=== PATIENT | male | born 1940 | race Caucasian/White ===

== ENCOUNTER 2016-08-23 08:07 | Emergency (ER) | payer OTHER ==
[~2016-08-23] VITALS: Ht 160 cm; Wt 84.5 kg
[~2016-08-23 08:07] MED LIST: LPR25 PO; TMB100 PO
[2016-08-23 08:10] VITALS: Ht 160 cm; Wt 84.5 kg
--- NOTE | 2016-08-23 08:35 | DIAGNOSTIC IMAGING REPORT ---
CHEST ONE VIEW PORTABLE CLINICAL HISTORY: Fever. Sepsis. COMPARISON STUDY: Chest radiograph 10/10/2015. FINDINGS: Lung volumes are at the lower limits of normal. There is no evidence of pulmonary edema. Hazy opacity within the left lower lung is likely due to epicardial fat pad. Cardiomediastinal silhouette is normal. No consolidation is identified. The appearance of the chest is unchanged. IMPRESSION: No acute cardiopulmonary findings. Electronically signed by: Efren Lazo M.D. 08/23/2016 8:33 AM
[2016-08-23 08:41] LABS: BASO % 0.6 %; BASO ABS # 0.03 K/uL (0-0.2); COMPLETE YES; EOS % 3.9 %; HEMATOCRIT 43.8 % (42-52); IG% 0.2 %; LYMPH % 35.2 %; LYMPH ABS # 1.81 K/uL (1.2-3.4); MEAN CELL VOLUME 88.1 fL (80-100); MEAN CORPUSCULAR HEMOGLOBIN 31.6 pg (25-34); MEAN CORPUSCULAR HGB CONC 35.8 g/dl (32-36); MEAN PLATELET VOLUME 10.4 fL (7.4-10.4); MONO % 12.5 %; NEUT % 47.6 %; PLATELET COUNT 133 K/uL (130-400); RED BLOOD COUNT 4.97 M/uL (4.7-6.1); WHITE BLOOD COUNT 5.14 K/uL (4.8-10.8)
[2016-08-23 09:00] LABS: ALT/SGPT 35 U/L (12-78); BLOOD UREA NITROGEN 20 mg/dl (7-18); BUN/CREATININE RATIO 14.4 (10-20); CALCIUM 8.8 mg/dl (8.5-10.1); CARBON DIOXIDE 25 mmol/L (21-32); CHLORIDE 106 mmol/L (98-107); GLUCOSE 104 mg/dl (70-99); POTASSIUM 4.1 mmol/L (3.5-5.1); SODIUM 142 mmol/L (136-145)
[2016-08-23 09:05] LABS: ALKALINE PHOSPHATASE 58 U/L (45-117); AST/SGOT 25 U/L (15-37); CKMB/CK RATIO 1.6 (0-3.0); PROTHROMBIN TIME (PATIENT) 10.9 SECONDS (9.0-12.0)
[2016-08-23 09:36] VITALS: O2SAT 96
[2016-08-23] MEDS ORDERED: GINK40TA3 PO (09:36)
[2016-08-23] MEDS ORDERED: ASCA500 PO (09:36)
[2016-08-23] MEDS ORDERED: VITA1TAB4 PO (09:36)
[2016-08-23] MEDS ORDERED: IODICRY PO (09:36)
[2016-08-23] MEDS ORDERED: PYRI50TA77 PO (09:36)
[2016-08-23] MEDS ORDERED: MAGN250T22 PO (09:36)
[2016-08-23] MEDS ORDERED: RHOD300C PO (09:36)
[2016-08-23] MEDS ORDERED: CYAN100T PO (09:36)
[2016-08-23] MEDS ORDERED: THIA100T11 PO (09:36)
[2016-08-23] MEDS ORDERED: PRAS1TAB PO (09:36)
[2016-08-23] MEDS ORDERED: B-COTAB18 PO (09:36)
[2016-08-23] MEDS ORDERED: CHOL100010 PO (09:36)
--- NOTE | 2016-08-23 09:49 | EMERGENCY ROOM VISIT NOTE ---
History Report prepared by Meg: Judy Corona Under the Supervision of: Dr. Jhony Ogden D.O. First contact with patient: 08:22 Chief Complaint: SHORTNESS OF BREATH Stated Complaint: SOB History of Present Illness The patient is a 76 year old male who presents to the Emergency Room with complaints of constant shortness of breath that worsened last night. Nothing makes the shortness of breath better or worse. The patient states that he woke up in the middle of the night "gasping for a breath." Originally, he thought the shortness of breath was due to the heat in the house so he opened up the window. He states that it feels like "there is a blockage in his lungs." He is also experiencing sinus congestion but denies lower extremity edema or pain. The patient denies any history of COPD but states that he has experienced pneumonia and bronchitis in the past. The patient adds that he was diagnosed with sleep apnea and tried wearing the mask at night, but he states that he couldn't get used to it so he has stopped wearing it. The patient also states that he has a history of atrial fibrillation. Source of History: patient Onset: last night Position: chest Quality: other (shortness of breath) Timing: constant, worsening Modifying Factors (Worsening): other (none) Modifying Factors (Relieving): other (none) Note: sinus congestion, no lower extremity edema or pain Review of Systems See HPI for pertinent positives & negatives. A total of 10 systems reviewed and were otherwise negative. Past Medical & Surgical Medical Problems: (1) Benign paroxysmal positional vertigo (2) Bronchitis Nos (3) Chronic Sinusitis Nos (4) Endocrine Disorder Nos (5) Hyperlipidemia Nec/Nos (6) Hypertension Nos (7) Lipoprotein Deficiencies (8) Rapid atrial fibrillation (9) Tachycardia Nos (10) Thyroid disorder (11) Unspecified Sleep Apnea Family History FHx: heart disease Social History Smoking Status: Never Smoker Alcohol Use: none Drug Use: none Marital Status: single Housing Status: lives with significant other Occupation Status: retired Current/Historical Medications Scheduled Apixaban (Eliquis), 5 MG PO BID Ascorbic Acid (Vitamin C), 1 TAB PO BID B-Complex Vitamins (Vitamin B Complex), 1 TAB PO BID Cholecalciferol (Vitamin D), 1 TAB PO BID Cyanocobalamin (Vitamin B-12), 1 TAB PO BID Flecainide Acetate (Flecainide Acetate), 50 MG PO Q12 Ginkgo Biloba (Ginkoba), 1 TAB PO BID Iodine (Bulk) (Iodine Resublimed), 10 MCG PO BID Magnesium Oxide (Magnesium), 1 TAB PO BID Metoprolol Tartrate (Lopressor) (Lopressor), 12.5 MG PO DAILY Prasterone (Dhea) (Dhea), 5 MG PO TID Pyridoxine Hcl (Vitamin B 6), 1 TAB PO BID Rhodiola Rosea (Rhodiola), 1 TAB PO BID Thiamine Hcl (Vitamin B-1), 1 TAB PO BID Vitamin E (Vitamin E), 1 TAB PO BID Allergies Coded Allergies: Theophylline (Verified Adverse Reaction, Intermediate, HIGH BP,TACHYCARDIA , 05/26/16) Physical Exam Vital Signs Date Time Temp Pulse Resp B/P Pulse Ox O2 Delivery O2 Flow Rate FiO2 08/23/16 09:36 96 Room Air 08/23/16 08:36 57 08/23/16 08:10 36.4 59 20 153/97 95 Room Air Physical Exam CONSTITUTIONAL/VITAL SIGNS: Reviewed / noted above. GENERAL: Non-toxic in appearance. INTEGUMENTARY: Warm, dry, and [place]. HEAD: Normocephalic. EYES: without scleral icterus or trauma. ENT/OROPHARYNX: clear and moist. LYMPHADENOPATHY/NECK: Is supple without lymphadenopathy or meningismus. RESPIRATORY: Lungs clear and equal. CARDIOVASCULAR: Regular rate and rhythm. GI/ABDOMEN: Soft and nontender. No organomegaly or pulsatile mass. No rebound or guarding. Normal bowel sounds. EXTREMITIES: Warm and well perfused. BACK: No CVA tenderness. NEUROLOGICAL: Intact without focal deficits. PSYCHIATRIC: normal affect. MUSCULOSKELETAL: Normally developed with good muscle tone. Medical Decision & Procedures ER Provider Diagnostic Interpretation: X ray results and stated below per my interpretation and radiology interpretation. CHEST ONE VIEW PORTABLE CLINICAL HISTORY: Fever. Sepsis. COMPARISON STUDY: Chest radiograph 10/10/2015. FINDINGS: Lung volumes are at the lower limits of normal. There is no evidence of pulmonary edema. Hazy opacity within the left lower lung is likely due to epicardial fat pad. Cardiomediastinal silhouette is normal. No consolidation is identified. The appearance of the chest is unchanged. IMPRESSION: No acute cardiopulmonary findings. Electronically signed by: Efren Lazo M.D. 08/23/2016 8:33 AM Laboratory Results 08/23/16 08:28 Red Blood Count 4.97, Mean Corpuscular Volume 88.1, Mean Corpuscular Hemoglobin 31.6, Mean Corpuscular Hemoglobin Concent 35.8, Mean Platelet Volume 10.4, Neutrophils (%) (Auto) 47.6, Lymphocytes (%) (Auto) 35.2, Monocytes (%) (Auto) 12.5, Eosinophils (%) (Auto) 3.9, Basophils (%) (Auto) 0.6, Neutrophils # (Auto ) 2.45, Lymphocytes # (Auto) 1.81, Monocytes # (Auto) 0.64, Eosinophils # (Auto ) 0.20, Basophils # (Auto) 0.03 08/23/16 08:28 Test 08/23/16 08:28 White Blood Count 5.14 K/uL (4.8-10.8) Red Blood Count 4.97 M/uL (4.7-6.1) Hemoglobin 15.7 g/dL (14.0-18.0) Hematocrit 43.8 % (42-52) Mean Corpuscular Volume 88.1 fL (80-100) Mean Corpuscular Hemoglobin 31.6 pg (25-34) Mean Corpuscular Hemoglobin Concent 35.8 g/dl (32-36) Platelet Count 133 K/uL (130-400) Mean Platelet Volume 10.4 fL (7.4-10.4) Neutrophils (%) (Auto) 47.6 % Lymphocytes (%) (Auto) 35.2 % Monocytes (%) (Auto) 12.5 % Eosinophils (%) (Auto) 3.9 % Basophils (%) (Auto) 0.6 % Neutrophils # (Auto) 2.45 K/uL (1.4-6.5) Lymphocytes # (Auto) 1.81 K/uL (1.2-3.4) Monocytes # (Auto) 0.64 K/uL (0.11-0.59) Eosinophils # (Auto) 0.20 K/uL (0-0.5) Basophils # (Auto) 0.03 K/uL (0-0.2) RDW Standard Deviation 45.4 fL (36.4-46.3) RDW Coefficient of Variation 14.1 % (11.5-14.5) Immature Granulocyte % (Auto) 0.2 % Immature Granulocyte # (Auto) 0.01 K/uL (0.00-0.02) Prothrombin Time 10.9 SECONDS (9.0-12.0) Prothromb Time International Ratio 1.0 (0.9-1.1) Activated Partial Thromboplast Time 26.9 SECONDS (21.0-31.0) Partial Thromboplastin Ratio 1.0 D-Dimer 460 ug/L FEU (0-500) Anion Gap 11.0 mmol/L (3-11) Est Creatinine Clear Calc Drug Dose 44.5 ml/min Estimated GFR () 57.0 Estimated GFR (Non- 49.1 BUN/Creatinine Ratio 14.4 (10-20) Calcium Level 8.8 mg/dl (8.5-10.1) Total Bilirubin 0.5 mg/dl (0.2-1) Direct Bilirubin 0.1 mg/dl (0-0.2) Aspartate Amino Transf (AST/SGOT) 25 U/L (15-37) Alanine Aminotransferase (ALT/SGPT) 35 U/L (12-78) Alkaline Phosphatase 58 U/L (45-117) Total Creatine Kinase 100 U/L (39-308) Creatine Kinase MB 1.6 ng/ml (0.5-3.6) Creatine Kinase MB Ratio 1.6 (0-3.0) Troponin I < 0.015 ng/ml (0-0.045) Total Protein 7.0 gm/dl (6.4-8.2) Albumin 3.6 gm/dl (3.4-5.0) Lipase 324 U/L (73-393) Laboratory results as stated above per my review. ECG Indication: SOB/dyspnea Rate (beats per minute): 56 Rhythm: sinus bradycardia Findings: RBBB, other (left anterior fasicular block ) Comparison ECG Date: 05/26/2016 Change: no significant change ED Course 0903: Previous medical records were reviewed. The patient was evaluated in room B6. A complete history and physical examination was performed. 0949: On reevaluation, the patient is doing well. I discussed the results and findings with the patient. He verbalized agreement of the treatment plan. He was discharged home. Medical Decision The differential was considered includes acute myocardial infarction, acute coronary syndrome, myocarditis, pericarditis, pericardial effusions /tamponad, esophageal perforation, pulmonary embolism, pneumonia, pneumothorax, cardiomyopathy, congestive heart, anemia , COPD/asthma exacerbation. This is a 76-year-old male who presents to the ED with a chief complaint of shortness of breath. The patient states that he awoke in the middle night feeling short of breath. He states that he has had similar symptoms previously. The patient denies any other significant symptoms. He has not had any recent illness, fevers or chills. No chest pains. No swelling in his legs or other DVT risk factors. His vital signs are normal. His physical exam was normal as well. His lungs were clear. Chest x-ray did not show any acute disease. A CBC was normal. A d-dimer was negative. Troponin is negative. Complete metabolic panel was normal. EKG shows a sinus rhythm with a right bundle-branch block. No cerumen change from previous EKG. The patient was told the results of the test. The cause of the patient's symptoms are unclear at this time. I do not suspect cardiac or pulmonary etiology. There is no evidence of pneumonia or ME. He has no reactive airway disease symptoms on clinical exam. He is not anemic. He was felt to be stable for discharge and outpatient follow-up. Impression Primary Impression: Dyspnea Scribe Attestation The scribe's documentation has been prepared under my direction and personally reviewed by me in its entirety. I confirm that the note above accurately reflects all work, treatment, procedures, and medical decision making performed by me. Departure Information Dispostion Home / Self-Care Referrals RV. Nova MD (PCP) Forms HOME CARE DOCUMENTATION FORM, IMPORTANT VISIT INFORMATION Patient Instructions A Signature Page, My [facility] Additional Instructions The cause of your symptoms are unclear. Your chest x-ray did not reveal pneumonia. Your cardiac tests were normal. You are not anemic. Follow-up with your doctor for further care and evaluation in 1-2 days. Return to the emergency department for worsening or new symptoms or any concerns. You have been examined and treated today on an emergency basis only. This is not a substitute for, or an effort to provide, complete comprehensive medical care. It is impossible to recognize and treat all injuries or illnesses in a single emergency department visit. It is therefore important that you follow up closely with your doctor. Call as soon as possible for an appointment.
[2016-08-23 10:30] VITALS: BP 153/97; PULSE 57; TEMP 36.4; O2SAT 96
[2017-05-23] MEDS ORDERED: AZIT-57 PO (17:16)
[2017-05-30] MEDS ORDERED: CHOL100027 PO (05:06)
[2017-05-30] MEDS ORDERED: ASCA500 PO (05:06)
[2017-05-30] MEDS ORDERED: FLUT0.15 NAE (05:06)
[2017-05-30] MEDS ORDERED: COEN400C3 PO (05:09)
[2017-05-30] MEDS ORDERED: OMEG10007 PO (05:09)
[2017-05-30] MEDS ORDERED: APIX1TAB3 PO (06:40)
[2017-05-30] MEDS ORDERED: METO25TA56 PO (09:30)
== END 2016-08-23 10:30 | disposition home or self-care (01) ==
LOC: C.EDB 08:08
DX: R06.00 Dyspnea, unspecified (principal); G47.30 Sleep apnea, unspecified; E78.5 Hyperlipidemia, unspecified; I10 Essential (primary) hypertension; Z79.01 Long term (current) use of anticoagulants; I48.91 Unspecified atrial fibrillation; Z79.899 Other long term (current) drug therapy

== ENCOUNTER → 2016-10-13 | Outpatient (CLI) | payer OTHER ==
[~2016-10-13] MED LIST changes: +APIX1TAB3 PO; +ASCA500 PO; +B-CO1CAP17 PO; +B-COTAB18 PO; +BENZ1CAP90 PO; +CHOL100010 PO; +CHOL100027 PO; +COEN400C3 PO; +CORT25TA; +CORT25TA PO; +CYAN100T PO; +DOXY-300 OR; +FAMO20TA9 PO; +FLUT0.15 NAE; +GINK40TA3 PO; +IODICRY PO; +LISI-725 PO; -LPR25 PO; +LPT20 PO; +LYSI500C PO; +MAGN250T22 PO; +METO25TA56 PO; +OMEG10007 PO; +PRAS1TAB PO; +PRED20TA PO; +PYRI50TA77 PO; +RHOD300C PO; +TAUR500C PO; +THIA100T11 PO; +VITA1TAB4 PO; +VNTHFA/IN INH; +ZTHM250 PO
--- NOTE | 2016-10-19 08:49 | CODING QUERY MEDICAL NECESSITY ---
SUPPORTING DIAGNOSIS NEEDED A supporting diagnosis is required for the test/procedure performed on this patient in order for us to be reimbursed by the patient's insurance. Please provide a supporting diagnosis for the following test/procedure listed below next to the test name along with your signature. *If there is no additional diagnosis for this patient that would support the following test/procedure please document that below next to the test/procedure. Test(s)/Procedure(s) that require a supporting diagnosis: DOS 10/13 * Folic Acid DIAGNOSIS: * Vitamin B12 DIAGNOSIS: Provider Signature: Date: Thank you Kellie Crews Health Information Management Once completed, please kindly fax back to [phone] For questions please call [phone]
== END | disposition home or self-care (01) ==
LOC: C.LAB 10:30
PROVIDERS: ATTEND Internal Medicine
DX: E53.8 Deficiency of other specified B group vitamins (principal); E55.9 Vitamin D deficiency, unspecified; E61.1 Iron deficiency

== ENCOUNTER → 2017-03-31 | Outpatient (CLI) | payer OTHER ==
[~2017-03-31] MED LIST changes: +[UNRECOGNIZED DRUG - OTHER]
[2017-03-31 12:27] LABS: POTASSIUM 4.2 mmol/L (3.5-5.1)
[2017-03-31 12:49] LABS: THYROID STIMULATING HORMONE 5.22 uIu/ml (0.300-4.500)
== END | disposition home or self-care (01) ==
LOC: C.LAB 10:57
PROVIDERS: ATTEND Internal Medicine
DX: E03.9 Hypothyroidism, unspecified (principal); R73.9 Hyperglycemia, unspecified; E87.6 Hypokalemia

== ENCOUNTER 2017-05-13 15:44 | Emergency (ER) | payer OTHER ==
[~2017-05-13] VITALS: Ht 160 cm; Wt 87.8 kg
[~2017-05-13 15:44] MED LIST changes: -APIX1TAB3 PO; -B-CO1CAP17 PO; -BENZ1CAP90 PO; -CHOL100027 PO; -COEN400C3 PO; -CORT25TA; -CORT25TA PO; -DOXY-300 OR; -FAMO20TA9 PO; -FLUT0.15 NAE; -LISI-725 PO; -LPT20 PO; -LYSI500C PO; -METO25TA56 PO; -OMEG10007 PO; -PRED20TA PO; -TAUR500C PO; -VNTHFA/IN INH; -ZTHM250 PO; -[UNRECOGNIZED DRUG - OTHER]
[2017-05-13 15:57] VITALS: TEMP 36.8; Ht 160 cm; Wt 87.8 kg
[2017-05-13] MEDS ORDERED: ALBUT/IPRATROP 3MG/0.5MG NEB 3 ML VIAL INH STA (16:38)
[2017-05-13] MEDS ORDERED: LABETALOL HCL IV 5 MG/ML 20ML IV STA (16:45)
[2017-05-13 16:53] LABS: BASO % 0.3 %; BASO ABS # 0.02 K/uL (0-0.2); COMPLETE YES; EOS % 2.2 %; HEMATOCRIT 51.4 % (42-52); IG% 0.3 %; LYMPH % 22.4 %; LYMPH ABS # 1.67 K/uL (1.2-3.4); MEAN CELL VOLUME 91.8 fL (80-100); MEAN CORPUSCULAR HEMOGLOBIN 30.9 pg (25-34); MEAN CORPUSCULAR HGB CONC 33.7 g/dl (32-36); MEAN PLATELET VOLUME 10.8 fL (7.4-10.4); MONO % 8.1 %; NEUT % 66.7 %; PLATELET COUNT 151 K/uL (130-400); WHITE BLOOD COUNT 7.44 K/uL (4.8-10.8)
--- NOTE | 2017-05-13 17:01 | EMERGENCY ROOM VISIT NOTE ---
ED Visit Note First contact with patient: 16:26 CHIEF COMPLAINT: Cough, dyspnea HISTORY OF PRESENT ILLNESS: This 76-year-old male patient presents to the emergency department, ambulatory, complaining of dyspnea for several weeks or months. He states over the past 2-3 days, he has been experiencing more difficulty breathing than normal associated with a cough. The patient states the cough is nonproductive, but he has been noticing wheezing and increasing difficulty breathing. The patient also complains of sinus congestion, headache , and chills intermittently. He has been taking Tylenol Sinus and headache on occasion, which does help with some of his symptoms. Patient denies any nausea , vomiting, abdominal pain, fever, coughing up sputum, sore throat, or other associated symptoms. He denies chest pain or coughing up blood. The patient denies any dizziness. REVIEW OF SYSTEMS: A 10 system review of systems was performed with positives and pertinent negatives listed in the history of present illness. All other systems were reviewed and are negative. ALLERGIES: Theophylline MEDICATIONS: Please see list. I did personally review patient's medications with him at bedside. PMH: Atrial fibrillation SOCIAL HISTORY: The patient lives locally with family. He denies drug, alcohol , tobacco use. PHYSICAL EXAM: VITALS: Vitals are noted on the nurse's note and reviewed by myself. Vital signs stable. GENERAL: This is a 76-year-old male, in no acute distress, nondiaphoretic, well- developed well-nourished. SKIN: The skin was without rashes, erythema, edema, or bruising. There is no tenting of the skin. Capillary reflex less than 2 seconds. HEAD: Normocephalic atraumatic. EARS: External auditory canals clear, tympanic membranes pearly lim without erythema or effusion bilaterally. EYES: Pupils equal round and reactive to light and accommodation. Conjunctivae without injection, sclerae without icterus. Extraocular movements intact. NOSE: Patent, turbinates without inflammation or erythema. Rhinorrhea noted bilaterally on examination. No sinus tenderness. MOUTH: Mucous membranes moist. Tonsils are not enlarged. Pharynx without erythema or exudate. Uvula midline. Airway patent. Tongue does not deviate. NECK: Supple without nuchal rigidity. No lymphadenopathy. No thyromegaly. Cervical spine is nontender. No JVD. HEART: Regular rate and rhythm without murmurs gallops or rubs. LUNGS: Rhonchi noted in the bases of bilateral lungs. Otherwise, lungs were clear to auscultation bilaterally without wheeze or rales. No dullness to percussion. No retractions or accessory muscle use. NEURO: Patient was alert and oriented to person place and time. Normal sensation to light and sharp touch. No focal neurological deficits. RADIOLOGY: CXR: CHEST 2 VIEWS ROUTINE CLINICAL HISTORY: cough dyspnea COMPARISON STUDY: 08/23/2016 FINDINGS: Chronic pleural and parenchymal change left base laterally. Lungs are considered clear. Mild stable cardiomegaly. Diaphragms smooth. IMPRESSION: No acute process. EMERGENCY DEPARTMENT COURSE: The patient seen and evaluated as above. Labs drawn and IV was initiated. The patient's elevated blood pressure, he was given labetalol 10 mg via IV. He states he is in the process of self discontinuing his blood pressure medication, Eliquis, and flecainide. The patient was given a breathing treatment and did note significant improvement in symptoms. An x-ray was ordered and obtained. This was reviewed by myself and radiologist. EKG was performed and was reviewed by myself. This was compared to EKG dated 2016. EKG showed NSR at a rate of 65bpm, RBBB, left anterior fascicular block/ bifasicular block. This was similar in appearance to previous EKG with no significant change noted. Labs reviewed and wiwthout significant leukocytosis, anemia, thrombocytopenia. Pt's creatinine elevated at 1.5. His previous Creatinine earlier this year was 1.4. The patient is under the care of his PCP who is monitoring this. The patient was seen by Dr. Alvarado who is in agreement with the assessment and plan. I did discuss with the patient the risks of discontinuing his cardiac medications without direction by the graphic coordinator. The patient states he will follow-up with his graphic coordinator soon. The patient was discharged home in good condition with discharge instructions reviewed at bedside. The patient's blood pressure was elevated in the emergency department. I do feel that this was partially due to the patient discontinue this medication, as well as partially related to his illness. I did refer the patient back to his graphic coordinator for further evaluation and management of his blood pressure. DIFFERENTIAL DIAGNOSIS: Bronchitis, COPD, asthma, upper respiratory infection, pneumonia, acute sinusitis, malignancy, and others DIAGNOSIS: Acute bronchitis DISCHARGE INSTRUCTIONS & TREATMENT: You were seen and evaluated in the emergency department today for an upper respiratory infection with coughing. I suspect bronchitis as the cause. You were prescribed doxycycline to be taken twice daily. This is an antibiotic. All antibiotics have the potential to cause diarrhea. Stop this medication and contact a medical provider if you were to develop any significant adverse side effects including: wheezing, shortness of breath, passing out, vomiting, or a diffuse rash. Always take antibiotics as directed and COMPLETE the ENTIRE course regardless of the improvement of your symptoms. Only start this medication if you are not experiencing improvement in symptoms in 2-3 days. As discussed, you should take OTC Mucinex and/or Sudafed for your symptoms. Please do not exceed the recommended daily dosages. Ibuprofen(Motrin, Advil) may be used for fever or pain. Use 600mg every six hours as needed. Take with food. Avoid using more than 2400mg in a 24 hour period. Do not use 2400mg per day for more than three consecutive days without physician direction. Prolonged inappropriate use can lead to stomach upset or ulcers. (AND/OR) Acetaminophen(Tylenol) may be used for fever or pain. Use 1000mg every six hours as needed. Avoid using more than 3000mg in a 24 hour period. For congestion, you may use Flonase OTC. You may want to consider zinc, echinacea, and vitamin C to help boost your immunity. Please get plenty of rest and drink plenty of fluids. Please return or follow-up with your PCP in 2-3 days. Return to the emergency department for coughing up blood, difficulty breathing, chest pain, worsening symptoms, or for other concerns. Problem List Medical Problems: (1) Benign paroxysmal positional vertigo Status: Resolved (2) Bronchitis Nos Status: Resolved (3) Chronic Sinusitis Nos Status: Chronic (4) Endocrine Disorder Nos Status: Chronic (5) Hyperlipidemia Nec/Nos Status: Chronic (6) Hypertension Nos Status: Chronic (7) Lipoprotein Deficiencies Status: Resolved (8) Rapid atrial fibrillation Status: Resolved (9) Tachycardia Nos Status: Resolved (10) Thyroid disorder Status: Chronic (11) Unspecified Sleep Apnea Status: Chronic Current/Historical Medications Scheduled Apixaban (Eliquis), 5 MG PO BID Ascorbic Acid (Vitamin C), 1 TAB PO BID B-Complex Vitamins (Vitamin B Complex), 1 TAB PO BID Cholecalciferol (Vitamin D), 1 TAB PO BID Cyanocobalamin (Vitamin B-12), 1 TAB PO BID Doxycycline (Monohydrate) (Doxycycline), 1 CAP OR BID Flecainide Acetate (Flecainide Acetate), 50 MG PO Q12 Fluticasone Propionate (Nasal) (Flonase Allergy Relief), 1 SPRAY ANITA BID Ginkgo Biloba (Ginkoba), 1 TAB PO BID Iodine (Bulk) (Iodine Resublimed), 10 MCG PO BID Magnesium Oxide (Magnesium), 1 TAB PO BID Metoprolol Tartrate (Lopressor) (Lopressor), 12.5 MG PO DAILY Prasterone (Dhea) (Dhea), 5 MG PO TID Pyridoxine Hcl (Vitamin B 6), 1 TAB PO BID Rhodiola Rosea (Rhodiola), 1 TAB PO BID Thiamine Hcl (Vitamin B-1), 1 TAB PO BID Vitamin E (Vitamin E), 1 TAB PO BID Scheduled PRN Albuterol Hfa (Ventolin Hfa), 2 PUFFS INH Q4-6 PRN for Wheezing Benzonatate (Tessalon Perles), 200 MG PO TID PRN for Cough Allergies Coded Allergies: Theophylline (Verified Adverse Reaction, Intermediate, HIGH BP,TACHYCARDIA , 05/26/16) Vital Signs Date Time Temp Pulse Resp B/P (MAP) Pulse Ox O2 Delivery O2 Flow Rate FiO2 05/13/17 19:05 95 05/13/17 18:50 65 18 192/103 95 Room Air 05/13/17 17:50 71 14 153/102 96 Room Air 05/13/17 17:05 67 26 153/86 99 Nebulizer 5.0 05/13/17 16:54 69 05/13/17 16:54 65 15 151/90 99 Nebulizer 5.0 05/13/17 16:44 190/115 05/13/17 15:57 36.8 70 16 202/118 94 Room Air Laboratory Results 05/13/17 16:26 Red Blood Count 5.60, Mean Corpuscular Volume 91.8, Mean Corpuscular Hemoglobin 30.9, Mean Corpuscular Hemoglobin Concent 33.7, Mean Platelet Volume 10.8, Neutrophils (%) (Auto) 66.7, Lymphocytes (%) (Auto) 22.4, Monocytes (%) (Auto) 8.1, Eosinophils (%) (Auto) 2.2, Basophils (%) (Auto) 0.3, Neutrophils # (Auto) 4.97, Lymphocytes # (Auto) 1.67, Monocytes # (Auto) 0.60, Eosinophils # (Auto) 0.16, Basophils # (Auto) 0.02 05/13/17 16:26 Test 05/13/17 16:26 White Blood Count 7.44 K/uL (4.8-10.8) Red Blood Count 5.60 M/uL (4.7-6.1) Hemoglobin 17.3 g/dL (14.0-18.0) Hematocrit 51.4 % (42-52) Mean Corpuscular Volume 91.8 fL (80-100) Mean Corpuscular Hemoglobin 30.9 pg (25-34) Mean Corpuscular Hemoglobin Concent 33.7 g/dl (32-36) Platelet Count 151 K/uL (130-400) Mean Platelet Volume 10.8 fL (7.4-10.4) Neutrophils (%) (Auto) 66.7 % Lymphocytes (%) (Auto) 22.4 % Monocytes (%) (Auto) 8.1 % Eosinophils (%) (Auto) 2.2 % Basophils (%) (Auto) 0.3 % Neutrophils # (Auto) 4.97 K/uL (1.4-6.5) Lymphocytes # (Auto) 1.67 K/uL (1.2-3.4) Monocytes # (Auto) 0.60 K/uL (0.11-0.59) Eosinophils # (Auto) 0.16 K/uL (0-0.5) Basophils # (Auto) 0.02 K/uL (0-0.2) RDW Standard Deviation 49.8 fL (36.4-46.3) RDW Coefficient of Variation 14.8 % (11.5-14.5) Immature Granulocyte % (Auto) 0.3 % Immature Granulocyte # (Auto) 0.02 K/uL (0.00-0.02) Anion Gap 9.0 mmol/L (3-11) Est Creatinine Clear Calc Drug Dose 42.3 ml/min Estimated GFR () 52.4 Estimated GFR (Non- 45.2 BUN/Creatinine Ratio 8.4 (10-20) Calcium Level 9.4 mg/dl (8.5-10.1) Medications Administered Medications (Trade) Dose Ordered Sig/David Route Start Time Stop Time Status Last Admin Dose Admin Albuterol/ Ipratropium (Duoneb) 3 ml NOW STAT INH 05/13/17 16:38 05/13/17 16:40 DC 05/13/17 16:56 3 ML Labetalol HCl (Normodyne IV) 10 mg NOW STAT IV 05/13/17 16:45 05/13/17 16:46 DC 05/13/17 16:58 10 MG Departure Information Impression Primary Impression: Acute bronchitis Dispostion Home / Self-Care Condition GOOD Prescriptions Doxycycline (Monohydrate) (Doxycycline) 100 Mg Cap 1 CAP OR BID for 10 Days, #20 CAP Prov: Louise Chiang PA-C 05/13/17 Fluticasone Propionate (Nasal) (Flonase Allergy Relief) 50 Mcg/Act Spr 1 SPRAY ANITA BID, #1 BTL Prov: Louise Chiang PA-C 05/13/17 Albuterol Hfa (VENTOLIN HFA) 200 Puffs/63704 Mcg Aers 2 PUFFS INH Q4-6 Y for Wheezing, #1 INHALER Prov: Louise Chiang PA-C 05/13/17 Benzonatate (Tessalon Perles) 200 Mg Cap 200 MG PO TID Y for Cough for 10 Days, #30 CAP Prov: Louise Chiang PA-C 05/13/17 Referrals RV. Nova MD (PCP) Patient Instructions Bronchitis Acute, My [facility] Additional Instructions You were seen and evaluated in the emergency department today for an upper respiratory infection with coughing. I suspect bronchitis as the cause. You were prescribed doxycycline to be taken twice daily. This is an antibiotic. All antibiotics have the potential to cause diarrhea. Stop this medication and contact a medical provider if you were to develop any significant adverse side effects including: wheezing, shortness of breath, passing out, vomiting, or a diffuse rash. Always take antibiotics as directed and COMPLETE the ENTIRE course regardless of the improvement of your symptoms. Only start this medication if you are not experiencing improvement in symptoms in 2-3 days. As discussed, you should take OTC Mucinex and/or Sudafed for your symptoms. Please do not exceed the recommended daily dosages. Ibuprofen(Motrin, Advil) may be used for fever or pain. Use 600mg every six hours as needed. Take with food. Avoid using more than 2400mg in a 24 hour period. Do not use 2400mg per day for more than three consecutive days without physician direction. Prolonged inappropriate use can lead to stomach upset or ulcers. (AND/OR) Acetaminophen(Tylenol) may be used for fever or pain. Use 1000mg every six hours as needed. Avoid using more than 3000mg in a 24 hour period. For congestion, you may use Flonase OTC. You may want to consider zinc, echinacea, and vitamin C to help boost your immunity. Please get plenty of rest and drink plenty of fluids. Please return or follow-up with your PCP in 2-3 days. Return to the emergency department for coughing up blood, difficulty breathing, chest pain, worsening symptoms, or for other concerns. Problem Qualifiers Primary Impression: Acute bronchitis Bronchitis organism: unspecified organism Qualified Codes: J20.9 - Acute bronchitis, unspecified
[2017-05-13 17:18] LABS: BUN/CREATININE RATIO 8.4 (10-20); CALCIUM 9.4 mg/dl (8.5-10.1); CREATININE 1.5 mg/dl (0.60-1.40); POTASSIUM 3.8 mmol/L (3.5-5.1)
--- NOTE | 2017-05-13 17:24 | EMERGENCY ROOM VISIT NOTE ---
ED Visit Note First contact with patient: 16:26 I have seen and examined this patient with Louise Chiang and generally agree with the treatment plan as discussed. Problem List Medical Problems: (1) Benign paroxysmal positional vertigo Status: Resolved (2) Bronchitis Nos Status: Resolved (3) Chronic Sinusitis Nos Status: Chronic (4) Endocrine Disorder Nos Status: Chronic (5) Hyperlipidemia Nec/Nos Status: Chronic (6) Hypertension Nos Status: Chronic (7) Lipoprotein Deficiencies Status: Resolved (8) Rapid atrial fibrillation Status: Resolved (9) Tachycardia Nos Status: Resolved (10) Thyroid disorder Status: Chronic (11) Unspecified Sleep Apnea Status: Chronic Current/Historical Medications Scheduled Apixaban (Eliquis), 5 MG PO BID Ascorbic Acid (Vitamin C), 1 TAB PO BID B-Complex Vitamins (Vitamin B Complex), 1 TAB PO BID Cholecalciferol (Vitamin D), 1 TAB PO BID Cyanocobalamin (Vitamin B-12), 1 TAB PO BID Flecainide Acetate (Flecainide Acetate), 50 MG PO Q12 Ginkgo Biloba (Ginkoba), 1 TAB PO BID Iodine (Bulk) (Iodine Resublimed), 10 MCG PO BID Magnesium Oxide (Magnesium), 1 TAB PO BID Metoprolol Tartrate (Lopressor) (Lopressor), 12.5 MG PO DAILY Prasterone (Dhea) (Dhea), 5 MG PO TID Pyridoxine Hcl (Vitamin B 6), 1 TAB PO BID Rhodiola Rosea (Rhodiola), 1 TAB PO BID Thiamine Hcl (Vitamin B-1), 1 TAB PO BID Vitamin E (Vitamin E), 1 TAB PO BID Allergies Coded Allergies: Theophylline (Verified Adverse Reaction, Intermediate, HIGH BP,TACHYCARDIA , 05/26/16) Vital Signs Date Time Temp Pulse Resp B/P (MAP) Pulse Ox O2 Delivery O2 Flow Rate FiO2 05/13/17 17:05 67 26 153/86 99 Nebulizer 5.0 05/13/17 16:54 69 05/13/17 16:54 65 15 151/90 99 Nebulizer 5.0 05/13/17 16:44 190/115 05/13/17 15:57 36.8 70 16 202/118 94 Room Air Laboratory Results 05/13/17 16:26 Red Blood Count 5.60, Mean Corpuscular Volume 91.8, Mean Corpuscular Hemoglobin 30.9, Mean Corpuscular Hemoglobin Concent 33.7, Mean Platelet Volume 10.8, Neutrophils (%) (Auto) 66.7, Lymphocytes (%) (Auto) 22.4, Monocytes (%) (Auto) 8.1, Eosinophils (%) (Auto) 2.2, Basophils (%) (Auto) 0.3, Neutrophils # (Auto) 4.97, Lymphocytes # (Auto) 1.67, Monocytes # (Auto) 0.60, Eosinophils # (Auto) 0.16, Basophils # (Auto) 0.02 05/13/17 16:26 Test 05/13/17 16:26 White Blood Count 7.44 K/uL (4.8-10.8) Red Blood Count 5.60 M/uL (4.7-6.1) Hemoglobin 17.3 g/dL (14.0-18.0) Hematocrit 51.4 % (42-52) Mean Corpuscular Volume 91.8 fL (80-100) Mean Corpuscular Hemoglobin 30.9 pg (25-34) Mean Corpuscular Hemoglobin Concent 33.7 g/dl (32-36) Platelet Count 151 K/uL (130-400) Mean Platelet Volume 10.8 fL (7.4-10.4) Neutrophils (%) (Auto) 66.7 % Lymphocytes (%) (Auto) 22.4 % Monocytes (%) (Auto) 8.1 % Eosinophils (%) (Auto) 2.2 % Basophils (%) (Auto) 0.3 % Neutrophils # (Auto) 4.97 K/uL (1.4-6.5) Lymphocytes # (Auto) 1.67 K/uL (1.2-3.4) Monocytes # (Auto) 0.60 K/uL (0.11-0.59) Eosinophils # (Auto) 0.16 K/uL (0-0.5) Basophils # (Auto) 0.02 K/uL (0-0.2) RDW Standard Deviation 49.8 fL (36.4-46.3) RDW Coefficient of Variation 14.8 % (11.5-14.5) Immature Granulocyte % (Auto) 0.3 % Immature Granulocyte # (Auto) 0.02 K/uL (0.00-0.02) Anion Gap 9.0 mmol/L (3-11) Est Creatinine Clear Calc Drug Dose 42.3 ml/min Estimated GFR () 52.4 Estimated GFR (Non- 45.2 BUN/Creatinine Ratio 8.4 (10-20) Calcium Level 9.4 mg/dl (8.5-10.1) Medications Administered Medications (Trade) Dose Ordered Sig/David Route Start Time Stop Time Status Last Admin Dose Admin Albuterol/ Ipratropium (Duoneb) 3 ml NOW STAT INH 05/13/17 16:38 05/13/17 16:40 DC 05/13/17 16:56 3 ML Labetalol HCl (Normodyne IV) 10 mg NOW STAT IV 05/13/17 16:45 05/13/17 16:46 DC 05/13/17 16:58 10 MG Departure Information Referrals RV. Nova MD (PCP) Patient Instructions My [facility] [address]
--- NOTE | 2017-05-13 17:38 | DIAGNOSTIC IMAGING REPORT ---
CHEST 2 VIEWS ROUTINE CLINICAL HISTORY: cough dyspnea COMPARISON STUDY: 08/23/2016 FINDINGS: Chronic pleural and parenchymal change left base laterally. Lungs are considered clear. Mild stable cardiomegaly. Diaphragms smooth. IMPRESSION: No acute process. The above report was generated using voice recognition software. It may contain grammatical, syntax or spelling errors. Electronically signed by: Dougie Murrieta M.D. 05/13/2017 5:36 PM Dictated Date/Time: 05/13/2017 5:35 PM
[2017-05-13] MEDS ORDERED: BENZ1CAP90 PO (18:42)
[2017-05-13] MEDS ORDERED: VNTHFA/IN INH (18:42)
[2017-05-13] MEDS ORDERED: FLUT0.15 NAE (18:47)
[2017-05-13] MEDS ORDERED: DOXY-300 OR (18:47)
[2017-05-13 18:50] VITALS: BP 192/103; PULSE 65
[2017-05-13 19:05] VITALS: O2SAT 95
[2017-05-30] MEDS ORDERED: CHOL100027 PO (05:06)
[2017-05-30] MEDS ORDERED: ASCA500 PO (05:06)
[2017-05-30] MEDS ORDERED: FLUT0.15 NAE (05:06)
[2017-05-30] MEDS ORDERED: COEN400C3 PO (05:09)
[2017-05-30] MEDS ORDERED: OMEG10007 PO (05:09)
[2017-05-30] MEDS ORDERED: APIX1TAB3 PO (06:40)
[2017-05-30] MEDS ORDERED: METO25TA56 PO (09:30)
== END 2017-05-13 19:05 | disposition home or self-care (01) ==
LOC: C.EDB 15:45 → C.EDC 19:05
DX: J20.9 Acute bronchitis, unspecified (principal); I48.91 Unspecified atrial fibrillation; I10 Essential (primary) hypertension; Z79.01 Long term (current) use of anticoagulants; Z79.899 Other long term (current) drug therapy

== ENCOUNTER 2017-05-17 03:48 | Inpatient (IN) | payer OTHER ==
[2017-05-17] VITALS (10 sets, daily range): BP systolic 131–184; BP diastolic 69–107; PULSE 54–65; TEMP 36.6–36.8; O2SAT 95–99; Ht 160 cm; Wt 68.4 kg
[~2017-05-17] VITALS: Ht 160 cm; Wt 68.4 kg
[~2017-05-17 03:48] MED LIST changes: +APIX1TAB3 PO; +BENZ1CAP90 PO; +DOXY-300 OR; +FLUT0.15 NAE; +METO25TA56 PO; +VNTHFA/IN INH
[2017-05-17] MEDS ORDERED: ALBUT/IPRATROP 3MG/0.5MG NEB 3 ML VIAL INH STA (04:05)
[2017-05-17] MEDS ORDERED: ASPIRIN 81 MG CHEW PO STA (04:05)
--- NOTE | 2017-05-17 04:05 | EMERGENCY ROOM VISIT NOTE ---
History Report prepared by Meg: Joanna Nieto Under the Supervision of: Dr. Tricia Villanueva M.D. First contact with patient: 03:55 Chief Complaint: SHORTNESS OF BREATH Stated Complaint: SHORTNESS OF BREATH History of Present Illness The patient is a 76 year old male who presents to the Emergency Room with complaints of sudden shortness of breath beginning tonight. He reports that he woke up from sleeping and that he was unable to catch his breath. The patient reports that he was in the ED 4 days ago for bronchitis. The patient reports that he has been coughing up sputum. He denies having any fevers. The patient also denies a history of asthma, blood clots, and smoking, but states that he does have a history of sleep apnea. He states that he takes Eliquis for atrial fibrillation, but that he has not taken it in a few weeks. The patient denies recent travel. Source of History: patient Onset: tonight Position: other (global) Quality: other (shortness of breath ) Timing: other (sudden) Associated Symptoms: + cough, No fevers Review of Systems See HPI for pertinent positives & negatives. A total of 10 systems reviewed and were otherwise negative. Past Medical & Surgical Medical Problems: (1) Benign paroxysmal positional vertigo (2) Bronchitis Nos (3) Chronic Sinusitis Nos (4) Elevated troponin (5) Endocrine Disorder Nos (6) Hyperlipidemia Nec/Nos (7) Hypertension Nos (8) Lipoprotein Deficiencies (9) Rapid atrial fibrillation (10) Shortness of breath (11) Tachycardia Nos (12) Thyroid disorder (13) Unspecified Sleep Apnea Family History FHx: heart disease Social History Smoking Status: Never Smoker Alcohol Use: none Drug Use: none Marital Status: single Housing Status: lives with significant other Occupation Status: retired Current/Historical Medications Scheduled Apixaban (Eliquis), 5 MG PO BID Ascorbic Acid (Vitamin C), 500 MG PO DAILY Cholecalciferol (Vitamin D 1000 Unit), 1,000 INTER.UNIT PO DAILY Coenzyme Q10 (Ubidecarenone) (Co Q-10 Maximum Strength), 1 CAP PO TID Cortisone Acetate (Cortisone Acetate), 0.5 TAB PO BID Fish Oil ([place]-3), 2 CAP PO BID Fluticasone Propionate (Nasal) (Flonase Allergy Relief), 1 SPRAY ANITA DAILY Lysine Hcl (L-Lysine Hcl), 500 MG PO BID Metoprolol Tartrate (Lopressor) (Lopressor), 12.5 MG PO BID Taurine (Taurine), 500 MG PO BID Vitamin B Cmplx/Vitc/Folic Ac (Nephrocaps), 1 CAP PO BID Scheduled PRN Albuterol Hfa (Ventolin Hfa), 2 PUFFS INH Q4-6 PRN for Wheezing Allergies Coded Allergies: Theophylline (Verified Adverse Reaction, Intermediate, HIGH BP,TACHYCARDIA , 05/17/17) Physical Exam Vital Signs Date Time Temp Pulse Resp B/P (MAP) Pulse Ox O2 Delivery O2 Flow Rate FiO2 05/17/17 05:30 53 18 160/107 97 Nasal Cannula 1.0 05/17/17 05:28 100 Nasal Cannula 1.0 05/17/17 05:28 54 16 145/82 100 Nasal Cannula 1.0 05/17/17 05:27 93 Room Air 05/17/17 04:42 61 15 169/99 96 Nebulizer 05/17/17 04:34 57 29 173/104 100 Nebulizer 05/17/17 04:28 95 Room Air 05/17/17 04:10 56 05/17/17 04:09 52 16 179/100 95 Room Air 05/17/17 03:53 36.7 54 20 164/99 96 Room Air Physical Exam Vital signs reviewed. General: Well-appearing male, in no significant distress. HEENT: No scleral icterus, PERRLA, neck supple. Atraumatic. Cardiovascular: Regular rate and rhythm, no extra sounds. Pulmonary: Clear to auscultation bilaterally, normal work of breathing. Abdomen: Soft, nontender, nondistended, positive bowel sounds. Musculoskeletal: Atraumatic, no peripheral edema. Neurologic: Patient awake alert and oriented x 3, full strength in all 4 extremities. Cranial nerves 2 through 12 grossly intact. Skin: Warm, dry, no rash Medical Decision & Procedures ER Provider Diagnostic Interpretation: Chest X-Ray: No focal consolidation. No failure. Normal mediastinal silhouette. Laboratory Results Test 05/17/17 04:10 05/17/17 04:24 Immature Granulocyte % (Auto) 0.2 % White Blood Count 6.31 K/uL (4.8-10.8) Red Blood Count 5.26 M/uL (4.7-6.1) Hemoglobin 16.3 g/dL (14.0-18.0) Hematocrit 48.6 % (42-52) Mean Corpuscular Volume 92.4 fL (80-100) Mean Corpuscular Hemoglobin 31.0 pg (25-34) Mean Corpuscular Hemoglobin Concent 33.5 g/dl (32-36) Platelet Count 137 K/uL (130-400) Mean Platelet Volume 10.5 fL (7.4-10.4) Neutrophils (%) (Auto) 48.6 % Lymphocytes (%) (Auto) 35.3 % Monocytes (%) (Auto) 10.5 % Eosinophils (%) (Auto) 4.9 % Basophils (%) (Auto) 0.5 % Neutrophils # (Auto) 3.07 K/uL (1.4-6.5) Lymphocytes # (Auto) 2.23 K/uL (1.2-3.4) Monocytes # (Auto) 0.66 K/uL (0.11-0.59) Eosinophils # (Auto) 0.31 K/uL (0-0.5) Basophils # (Auto) 0.03 K/uL (0-0.2) Immature Granulocyte # (Auto) 0.01 K/uL (0.00-0.02) Prothrombin Time 10.8 SECONDS (9.0-12.0) Prothromb Time International Ratio 1.0 (0.9-1.1) Est Creatinine Clear Calc Drug Dose 41.9 ml/min Estimated Average Glucose 117 mg/dl Hemoglobin A1c 5.7 % (4.5-5.6) Total Bilirubin 0.6 mg/dl (0.2-1) Direct Bilirubin 0.1 mg/dl (0-0.2) Aspartate Amino Transf (AST/SGOT) 26 U/L (15-37) Alanine Aminotransferase (ALT/SGPT) 34 U/L (12-78) Alkaline Phosphatase 66 U/L (45-117) Total Protein 6.6 gm/dl (6.4-8.2) Albumin 3.6 gm/dl (3.4-5.0) Triglycerides Level 192 mg/dl (0-150) Cholesterol Level 225 mg/dl (0-200) HDL Cholesterol 38 mg/dl LDL Cholesterol, Calculated 149 mg/dl VLDL Cholesterol, Calculated 38 mg/dl Cholesterol/HDL Ratio 5.9 Thyroid Stimulating Hormone (TSH) 4.570 uIu/ml (0.300-4.500) Bedside Troponin I 0.080 ng/ml (0-0.045) Laboratory results per my review. Medications Administered Medications (Trade) Dose Ordered Sig/David Route Start Time Stop Time Status Last Admin Dose Admin Albuterol/ Ipratropium (Duoneb) 3 ml NOW STAT INH 05/17/17 04:05 05/17/17 04:07 DC 05/17/17 04:25 3 ML Aspirin (Aspirin Chew) 324 mg NOW STAT PO 05/17/17 04:05 05/17/17 04:07 DC 05/17/17 04:25 324 MG Hydralazine HCl (HydrALAZINE INJ) 10 mg NOW STAT IV. 05/17/17 05:07 05/17/17 05:08 DC 05/17/17 05:35 10 MG ECG Indication: SOB/dyspnea Rate (beats per minute): 54 Rhythm: sinus bradycardia Findings: LAFB, RBBB, no acute ischemic change, other (repolarization abnormality) ED Course 0402: Past medical records reviewed. The patient was evaluated in room A10. A complete history and physical examination was performed. 0405: Ordered Aspirin 324 mg PO, Duoneb 3 ml INH. 0500: Upon reevaluation, the patient is resting comfortably. I discussed laboratory and radiographic results with him. He verbalized agreement of the treatment plan. I spoke with Dr. Wakefield of the [facility]. The patient will be evaluated for further management and care. Medical Decision Differential diagnosis: Etiologies such as infections, reactive airway disease, pneumonia, pneumothorax , COPD, CHF, cardiac ischemia, pulmonary embolism, musculoskeletal, gastrointestinal, as well as others were entertained. This patient was evaluated and appeared to be in no significant distress. IV access was obtained and laboratory work was drawn. The patient was placed on the cardiac cath lab manager. 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 There is no evidence of acute ischemic change. Patient's laboratory work reveals mildly elevated troponin. Patient was given a DuoNeb treatment for shortness of breath. He was given aspirin 324 mg to chew and 10 mg of IV hydralazine for hypertension. I suspect this is related to medication noncompliance "weaning himself off." The patient will be evaluated by the hospitalist service for further cardiac evaluation. He is aware of the plan and agrees. Medication Reconcilliation Current Medication List: was personally reviewed by me Blood Pressure Screening Patient's blood pressure: Elevated blood pressure Blood pressure disposition: Referred to PCP Consults Time Called: 0455 Consulting Physician: Dr. Wakefield- [place] Returned Call: 0500 I reviewed the patient's case with Dr. Wakefield. He will evaluate the patient for further management. Impression Primary Impression: Elevated troponin Additional Impression: Hypertension Scribe Attestation The scribe's documentation has been prepared under my direction and personally reviewed by me in its entirety. I confirm that the note above accurately reflects all work, treatment, procedures, and medical decision making performed by me. Departure Information Dispostion Being Evaluated By Hospitalist Referrals RV. Nova MD (PCP) Patient Instructions [facility] Problem Qualifiers
[2017-05-17 04:28] LABS: BASO % 0.5 %; BASO ABS # 0.03 K/uL (0-0.2); COMPLETE YES; EOS % 4.9 %; HEMATOCRIT 48.6 % (42-52); IG% 0.2 %; LYMPH % 35.3 %; LYMPH ABS # 2.23 K/uL (1.2-3.4); MEAN CELL VOLUME 92.4 fL (80-100); MEAN CORPUSCULAR HGB CONC 33.5 g/dl (32-36); MEAN PLATELET VOLUME 10.5 fL (7.4-10.4); MONO % 10.5 %; NEUT % 48.6 %; PLATELET COUNT 137 K/uL (130-400); RED BLOOD COUNT 5.26 M/uL (4.7-6.1); WHITE BLOOD COUNT 6.31 K/uL (4.8-10.8)
[2017-05-17 04:48] LABS: BUN/CREATININE RATIO 18.3 (10-20); CREATININE 1.5 mg/dl (0.60-1.40); POTASSIUM 3.7 mmol/L (3.5-5.1)
[2017-05-17] MEDS ORDERED: CHOL100027 PO (05:06)
[2017-05-17] MEDS ORDERED: FLUT0.15 NAE (05:06)
[2017-05-17] MEDS ORDERED: ASCA500 PO (05:06)
[2017-05-17] MEDS ORDERED: B-CO1CAP17 PO (05:06)
[2017-05-17] MEDS ORDERED: HydrALAZINE HCL 20 MG/ML VIAL IV. STA (05:07)
[2017-05-17] MEDS ORDERED: LYSI500C PO (05:09)
[2017-05-17] MEDS ORDERED: OMEG10007 PO (05:09)
[2017-05-17] MEDS ORDERED: COEN400C3 PO (05:09)
[2017-05-17] MEDS ORDERED: TAUR500C PO (05:09)
[2017-05-17] MEDS ORDERED: CORT25TA (05:10)
[2017-05-17] MEDS ORDERED: CORT25TA PO (05:11)
--- NOTE | 2017-05-17 05:18 | History and Physical ---
History & Physical Date & Time of Service: May 17, 2017 at 05:07 Chief Complaint: Shortness Of Breath Primary Care Physician: RV. Nova MD History of Present Illness 76 year old male with a history of, afib with RVR, presenting with sudden onset shortness of breath. Woke up suddenly tonight. Was in the ER Tuesday and was diagnosed with Bronchitis. Discharged home with Flonase and Albuterol. Says he started to feel better. Then woke up suddenly feeling short of breath, was sitting in the lounge chair reclined. Did not feel better with position. Is coughing, which is occasionally productive of white sputum, only small amounts. Drove himself to the ER. Denies chest tightness or chest pain. No lightheadedness or dizziness. Notes had palpitations yesterday morning but none currently. No swelling in the legs Notes sweats once today. Appetite has been poor the past few days. Has been drinking fluids. No constipation, diarrhea or difficulty with urination. Also complains of belching and a lot of stomach gas. Has history of HTN, and impaired fasting glucose. Non-smoker. Notes history of atrial fibrillation. No CAD. The patient has a history of Afib with RVR. Is suppose to be taking Eliquis as well as Metoprolol. States that 3 weeks ago, he started trying to wean off them because he felt he had generally poor energy levels and attributed it to these medications. The patient also has a sefl-reported history of "low hormones". He takes a number of nutraceutical products. He states that he see a physician in [place], [place], who prescribes them to him. He brings a bag with multiple medications with homemade labels on the bottles without any actual doses. These include a medication labelled "Hydrocort". He also states low functioning thyroid and being on some thyroid medication but does not know his exact dose. Past Medical/Surgical History Medical Problems: Hyperlipidemia Nec/Nos Status: Chronic Hypertension Nos Status: Chronic Lipoprotein Deficiencies Status: Resolved Rapid atrial fibrillation Status: Resolved Hypothyroid RENETTA Surgeries - Left knee replacement - Appendicectomy Family History FHx: heart disease Social History Smoking Status: Never Smoker Smokeless Tobacco Use: No Alcohol Use: occasionally Drug Use: none Marital Status: single Housing status: lives alone Occupational Status: retired Multi-Drug Resistant Organisms History of MDRO: No Allergies Coded Allergies: Theophylline (Verified Adverse Reaction, Intermediate, HIGH BP,TACHYCARDIA , 05/17/17) Home Medications Scheduled Apixaban (Eliquis), 5 MG PO BID Ascorbic Acid (Vitamin C), 500 MG PO DAILY Cholecalciferol (Vitamin D 1000 Unit), 1,000 INTER.UNIT PO DAILY Coenzyme Q10 (Ubidecarenone) (Co Q-10 Maximum Strength), 1 CAP PO TID Cortisone Acetate (Cortisone Acetate), 0.5 TAB PO BID Fish Oil ([place]-3), 2 CAP PO BID Fluticasone Propionate (Nasal) (Flonase Allergy Relief), 1 SPRAY ANITA DAILY Lysine Hcl (L-Lysine Hcl), 500 MG PO BID Metoprolol Tartrate (Lopressor) (Lopressor), 12.5 MG PO BID Taurine (Taurine), 500 MG PO BID Vitamin B Cmplx/Vitc/Folic Ac (Nephrocaps), 1 CAP PO BID Scheduled PRN Albuterol Hfa (Ventolin Hfa), 2 PUFFS INH Q4-6 PRN for Wheezing Review of Systems A 10 point review of systems was negative unless stated above. Physical Exam Vital Signs Date Time Temp Pulse Resp B/P (MAP) Pulse Ox O2 Delivery O2 Flow Rate FiO2 05/17/17 04:42 61 15 169/99 96 Nebulizer 05/17/17 04:34 57 29 173/104 100 Nebulizer 05/17/17 04:28 95 Room Air 05/17/17 04:10 56 05/17/17 04:09 52 16 179/100 95 Room Air 05/17/17 03:53 36.7 54 20 164/99 96 Room Air General Appearance: WD/WN, no apparent distress Head: normocephalic, atraumatic Eyes: normal inspection, EOMI ENT: hearing grossly normal, pharynx normal Neck: supple, no adenopathy, no JVD Respiratory/Chest: chest non-tender, lungs clear, no respiratory distress Cardiovascular: regular rate, rhythm, no gallop, no murmur Abdomen/GI: normal bowel sounds, non tender, soft Back: normal inspection, no CVA tenderness Extremities/Musculoskelatal: no calf tenderness, no pedal edema Neurologic/Psych: alert, normal mood/affect, oriented x 3 Skin: normal color, warm/dry, no rash Lymphatic: no adenopathy Diagnostics Laboratory Results Results Past 24 Hours Test 05/17/17 04:10 05/17/17 04:24 Range/Units White Blood Count 6.31 4.8-10.8 K/uL Red Blood Count 5.26 4.7-6.1 M/uL Hemoglobin 16.3 14.0-18.0 g/dL Hematocrit 48.6 42-52 % Mean Corpuscular Volume 92.4 80-100 fL Mean Corpuscular Hemoglobin 31.0 25-34 pg Mean Corpuscular Hemoglobin Concent 33.5 32-36 g/dl Platelet Count 137 130-400 K/uL Mean Platelet Volume 10.5 7.4-10.4 fL Neutrophils (%) (Auto) 48.6 % Lymphocytes (%) (Auto) 35.3 % Monocytes (%) (Auto) 10.5 % Eosinophils (%) (Auto) 4.9 % Basophils (%) (Auto) 0.5 % Neutrophils # (Auto) 3.07 1.4-6.5 K/uL Lymphocytes # (Auto) 2.23 1.2-3.4 K/uL Monocytes # (Auto) 0.66 0.11-0.59 K/uL Eosinophils # (Auto) 0.31 0-0.5 K/uL Basophils # (Auto) 0.03 0-0.2 K/uL RDW Standard Deviation 49.8 36.4-46.3 fL RDW Coefficient of Variation 14.8 11.5-14.5 % Immature Granulocyte % (Auto) 0.2 % Immature Granulocyte # (Auto) 0.01 0.00-0.02 K/uL Sodium Level 140 136-145 mmol/L Potassium Level 3.7 3.5-5.1 mmol/L Chloride Level 106 98-107 mmol/L Carbon Dioxide Level 26 21-32 mmol/L Anion Gap 8.0 3-11 mmol/L Blood Urea Nitrogen 27 7-18 mg/dl Creatinine 1.50 0.60-1.40 mg/dl Est Creatinine Clear Calc Drug Dose 41.9 ml/min Estimated GFR () 52.4 Estimated GFR (Non- 45.2 BUN/Creatinine Ratio 18.3 10-20 Random Glucose 103 70-99 mg/dl Calcium Level 9.0 8.5-10.1 mg/dl Total Bilirubin 0.6 0.2-1 mg/dl Direct Bilirubin 0.1 0-0.2 mg/dl Aspartate Amino Transf (AST/SGOT) 26 15-37 U/L Alanine Aminotransferase (ALT/SGPT) 34 12-78 U/L Alkaline Phosphatase 66 45-117 U/L Total Protein 6.6 6.4-8.2 gm/dl Albumin 3.6 3.4-5.0 gm/dl Bedside Troponin I 0.080 0-0.045 ng/ml CXR normal EKG Sinus chris cardia No acute EKG changes compared to EKG from most recent ED admission 3 days ago. Impression Assessment and Plan 76 year old male with bronchitis and sudden onset shortness of breath overnight. He does have an elevated troponin on arrival without any new EKG changes. Regarding his self-reported diagnosis of low hormones I question the validity of these. I have reviewed his ambulator EMR which makes no mention of such diagnosis. I have looked up the doctor whom he states prescribed him his nutraceutical products and their website states that they work with bio- equivalent hormones. In addition the patient does not know exact doses of these medications. He does does have medications that seem that are called "Hydrocort" and levothyroxine, though he cannot give doses and the bottles do not appear to be prescription grade so my suspicion is that these are bio- equivalents. Our plan for him is as follows: NSTEMI - Trend cardiac enzymes q6 h - Telemetry monitoring - EKG and nitro with chest pain - Consult cardiology - ASA 324 mg; Heparin infusion started - Lipid profile and HbA1c pending History of Afib with RVR - Currently not taking Eliquis and Metoprolol as directed - Re-started medications now Self-reported history of hypothyroidism - Hold meds pending TSH Level Self-reported "Low Hormones" - Diagnosis unclear - Med bottles without names and doses - Hold all nutraceutical home medications DVT Prophylaxis - SCD Knee, JULITO Hose - Heparin infusion Code Status - Level I Full Code Disposition - Telemetry - OT and PT evaluations Resident Physician Supervision Note: I was present with Dr. Ferrara during the history and exam. I discussed the case with the resident and agree with the findings and plan as documented in the note. Any exceptions or clarifications are listed here: 76 y/o M Hx HTN, AF, hypothyroid - medical noncompliance. Pt has been tapering himself off Eliquis and Toprol in favor of various herbal supplements - presents with central CP - trop is above reference range no clear ischemia on EKG OE AAO x 3 S1,2 R CTAB NT, ND No CCE P: Pt placed on full-dose anticoagulation Started on a B-pavithra, Statin, ASA Discussed noncompliance with pt Will consult cardiology Documented By: Ritesh Wakefield Level of Care Telemetry Resuscitation Status FULL RESUSCITATION VTE Prophylaxis Given or contraindicated: Other Anticoagulation (heparin insusion)
[2017-05-17] MEDS ORDERED: MAGNESIUM HYDROXIDE SUSP 30 ML UDC PO PRN (05:30)
[2017-05-17] MEDS ORDERED: ALUMINUM/MAGNESIUM/SIMETH (MAALOX MAX) 30 ML UDC PO PRN (05:30)
[2017-05-17] MEDS ORDERED: POLYETHYLENE (MIRALAX) 17 GM PACK PO PRN (05:30)
[2017-05-17] MEDS ORDERED: ACETAMINOPHEN 325 MG TAB PO PRN (05:30)
[2017-05-17] MEDS ORDERED: NITROGLYCERIN 0.4 MG SL PER TAB CHARGE SL PRN (05:30)
[2017-05-17] MEDS ORDERED: MoRPHine SULFATE 2 MG/ML CARP IV PRN (05:30)
[2017-05-17] MEDS ORDERED: ONDANSETRON INJ 2 MG/ML 2 ML VIAL IV PRN (05:30)
[2017-05-17] MEDS ORDERED: ASPIRIN 81 MG CHEW PO ONE (05:30)
[2017-05-17] MEDS ORDERED: ALBUTEROL HFA 8 GM INHALER INH PRN (05:45)
[2017-05-17 05:48] LABS: PARTIAL THROMBOPLASTIN RATIO 1.1; PROTHROMBIN TIME (PATIENT) 10.8 SECONDS (9.0-12.0)
[2017-05-17 05:51] LABS: CHOLESTEROL/HDL RATIO 5.9
[2017-05-17 06:09] LABS: CKMB/CK RATIO 1.8 (0-3.0)
[2017-05-17] MEDS ORDERED: HEPARIN SOD 5000 UNIT/0.5 ML CARP ONE (06:21)
[2017-05-17] MEDS ORDERED: HEPARIN 25000 UNIT/500 ML D5W ONE (06:21)
--- NOTE | 2017-05-17 06:41 | DIAGNOSTIC IMAGING REPORT ---
CHEST ONE VIEW PORTABLE HISTORY: 76 years-old Male SOB acute shortness of breath. Initial exam. COMPARISON: Chest radiograph 05/13/2017 TECHNIQUE: Portable upright AP view of the chest FINDINGS: Cardiac silhouette is upper limits of normal, unchanged. There is chronic blunting of the costophrenic angle suggesting scarring. No pneumothorax number pleural effusion or focal airspace consolidation. No overt edema. The bones of the chest appear to be grossly intact. IMPRESSION: No acute cardiopulmonary process. The above report was generated using voice recognition software. It may contain grammatical, syntax or spelling errors. Electronically signed by: Hosea Ventura M.D. 05/17/2017 6:39 AM Dictated Date/Time: 05/17/2017 6:38 AM
[2017-05-17] MEDS ORDERED: HEPARIN 25,000 UNIT/500ML D5W 500 ML IV PRN ×2 (06:45→07:00)
--- NOTE | 2017-05-17 07:10 | Family Medicine Progress Note ---
Progress Note Date of Service May 17, 2017. Subjective Pt evaluation today including: conversation w/ patient, physical exam, chart review, lab review The patient was seen and examined at bedside. No acute overnight events. Tele showed sinus rhythm in the 60s. Patient is resting comfortably in bed. States chest pain has resolved. Pt is NPO at present. Plan of care was described to the patient and all questions were answered. Constitutional: No fever, No chills, No sweats, No weight loss ENT: No hearing loss Respiratory: + cough, + shortness of breath, No sputum, No wheezing Cardiovascular: No chest pain, No edema Abdomen: No pain, No nausea, No diarrhea Musculoskeletal: No joint pain Psychiatric: No depression symptoms Skin: No rash Objective Physical Exam General Appearance: WD/WN, no apparent distress, + obese Eyes: PERRL, EOMI ENT: normal ENT inspection Neck: supple, no JVD Respiratory/Chest: chest non-tender, lungs clear, normal breath sounds, no respiratory distress, no accessory muscle use Cardiovascular: regular rate, rhythm, no edema, no gallop, no JVD, no murmur Abdomen: normal bowel sounds, non tender, soft, no organomegaly, no pulsatile mass Extremities: normal range of motion, non-tender, normal inspection, no pedal edema, no calf tenderness 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 Initial exam. COMPARISON: Chest radiograph 05/13/2017 TECHNIQUE: Portable upright AP view of the chest FINDINGS: Cardiac silhouette is upper limits of normal, unchanged. There is chronic blunting of the costophrenic angle suggesting scarring. No pneumothorax number pleural effusion or focal airspace consolidation. No overt edema. The bones of the chest appear to be grossly intact. IMPRESSION: No acute cardiopulmonary process. * -- Conclusions -- * There is mild asymmetric left ventricular hypertrophy. * Left ventricular systolic function is normal. * Grade I diastolic dysfunction, (abnormal relaxation pattern). * There is mild mitral regurgitation. * Right ventricular systolic pressure is elevated at 30-40mmHg. Assessment and Plan 76M with a PMHx of Afib p/w NSTEMI. Trops peaked at 0.1. Echo grossly normal. No events on Tele. Awaiting results of nuclear stress test. NSTEMI - Will hold all home 'hormone' meds. - Cards consulted, appreciate recs. - Hep Drip + ASA 81mg daily + Lipitor 20mg daily. - Morphine IV and Nitro SL PRN for Pain. - Trop peak at 0.1 and downtrending. - Echo pending. - Nuclear stress test results pending. HTN - Metoprolol as above. - Amlodipine 5mg daily. Asthma - Duonebs Q6H - Albuterol Q2H PRN A. Fib - Currently in sinus. - Metoprolol 12.5mg BID - AC on DC Xarelto or Lovenox. Elevated TSH - Hypothyroid according to history but not on any home meds. - Will hold off restarting Synthroid at present, may be elevated due to sick euthyroid, recommend follow up as outpatient. Dispo: Admit to Tele. FULL CODE Resident Involvement: Resident Care Provided Care Provided: Adult Hospital Medicine
[2017-05-17 07:22] LABS: ESTIMATED AVERAGE GLUCOSE 117 mg/dl; HA1C FLAG Normal (Normal)
[2017-05-17] MEDS: ALBUT/IPRATROP 3MG/0.5MG NEB 3 ML VIAL INH SCH ×4 (08:00→19:09)
[2017-05-17] MEDS: ATORVASTATIN 20 MG TAB PO SCH (08:21)
[2017-05-17] MEDS: FLUTICASONE PROPIONATE NA SPR 16 GM BTL NAE SCH (08:21)
[2017-05-17] MEDS: METOPROLOL TARTRATE 25 MG TAB PO SCH ×2 (08:21→21:43)
[2017-05-17] MEDS ORDERED: ASCORBIC ACID 500 MG TAB PO SCH (09:00)
[2017-05-17] MEDS ORDERED: CHOLECALCIFEROL 1000 INTER.UNIT TAB PO SCH (09:00)
[2017-05-17] MEDS ORDERED: REGADENOSON 0.4 MG/5 ML SYR ONE (09:34)
[2017-05-17] MEDS ORDERED: AMLODIPINE BESYLATE 5 MG TAB PO ONE (10:30)
--- NOTE | 2017-05-17 11:56 | Cardiology Consultation ---
Cardiology Consultation Date of Consultation: May 17, 2017. Requesting Physician: Twyla Reason for Consultation: elevated troponin Pt evaluation today including: conversation w/ patient, physical exam, chart review, lab review, review of studies, conversation w/ attending History of Present Illness The patient is a 76-year-old gentleman without a known history of coronary disease who has recently been suffering from dyspnea and cough. Patient was evaluated at [facility] several days ago for symptoms eventually diagnosed as bronchitis. He states he has been having some mild dyspnea while at rest and with exertion. This has been accompanied by a cough as well. He did describe some subjective diaphoresis but no objective fevers. He has not had symptoms of chest discomfort. He has no pleuritic chest pain. Last evening the patient was sleeping in his recliner when he woke suddenly with shortness of breath. His breathing was concerning to him he presented to [facility] where bronchodilators improved his breathing. He also has some coughing during this episode. He did not describe a sense of chest pressure or chest pain during this episode. He has no sense of palpitation. He did not report feeling dizzy or lightheaded. He states he still has a cough and is mildly dyspneic. Patient does have a history of paroxysmal atrial fibrillation. He had previously been on medical therapy to include flecainide, metoprolol and apixaban. He has stopped these medications. He will notice occasional episodes of rapid heart rate which she perceives as atrial fibrillation. They can last for a few hours before stopping spontaneously. He did have 1 episode over the past few days that lasted for few hours. Previously he was an active individual who walked in exercise regularly. He reports over the last few months he has had less energy and has not exercised as much. He has been seen by an intrahepatic physician a prescribed a series of by identical hormones in the hopes of improving his fatigue. He does not report limiting exertional dyspnea or chest pain with exertion. Past Medical/Surgical History Atrial fibrillation, paroxysmal Bradycardia Benign paroxysmal positional vertigo Obstructive sleep apnea, mild Past surgical history Appendectomy Knee surgery Tonsillectomy Family History FHx: heart disease No premature coronary disease Social History Smoking Status: Never Smoker History of Alcohol Use: No Review of Systems Constitutional: + see HPI Respiratory: + see HPI Cardiac: + see HPI Abdomen: + see HPI Male : + see HPI Neurologic: + see HPI Heme: + see HPI Endo: + see HPI Skin: + see HPI Patient reports eating well. No symptoms of indigestion. He has had more eructation recently. He denies any changes bowel habits. No constipation or diarrhea. His fatigue is slowly improving. No swelling in his lower extremities. He has gained some weight as his nutrition is told him to eat more. He has no abdominal discomfort. All Other Systems: Reviewed and Negative Allergies Coded Allergies: Theophylline (Verified Adverse Reaction, Intermediate, HIGH BP,TACHYCARDIA , 05/17/17) Medications Current Inpatient Medications Medications (Trade) Dose Ordered Sig/David Route Start Time Stop Time Status Last Admin Dose Admin Acetaminophen (Tylenol Tab) 650 mg Q4H PRN PO 05/17/17 05:30 06/16/17 05:29 Al Hydrox/Mg Hydrox/Simethicone (Maalox Max Susp) 15 ml Q4H PRN PO 05/17/17 05:30 06/16/17 05:29 Magnesium Hydroxide (Milk Of Magnesia Susp) 30 ml Q12H PRN PO 05/17/17 05:30 06/16/17 05:29 Ondansetron HCl (Zofran Inj) 4 mg Q6H PRN IV 05/17/17 05:30 06/16/17 05:29 Nitroglycerin (Nitrostat Tab) 0.4 mg UD PRN SL 05/17/17 05:30 06/16/17 05:29 Morphine Sulfate (MoRPHine SULFATE INJ) 2 mg Q30M PRN IV 05/17/17 05:30 05/31/17 05:29 Polyethylene (Miralax Powder Packet) 17 gm DAILY PRN PO 05/17/17 05:30 06/16/17 05:29 Albuterol (Ventolin Hfa Inhaler) 2 puffs QID PRN INH 05/17/17 05:45 06/16/17 05:44 Fluticasone Propionate (Flonase Nasal Rufus) 2 sprays DAILY ANITA 05/17/17 09:00 06/16/17 08:59 05/17/17 08:21 2 SPRAYS Metoprolol Tartrate (Lopressor Tab) 12.5 mg BID PO 05/17/17 09:00 06/16/17 08:59 05/17/17 08:21 12.5 MG Albuterol/ Ipratropium (Duoneb) 3 ml QIDR INH 05/17/17 08:00 06/16/17 07:59 Heparin Sodium/ Dextrose 500 ml @ 25 mls/hr Q20H PRN IV 05/17/17 06:45 06/16/17 06:44 Atorvastatin Calcium (Lipitor Tab) 20 mg QAM PO 05/17/17 09:00 06/16/17 08:59 05/17/17 08:21 20 MG Amlodipine Besylate (Norvasc Tab) 5 mg QAM PO 05/18/17 09:00 06/17/17 08:59 Physical Exam Vital Signs Past 12 Hours Date Time Temp Pulse Resp B/P (MAP) Pulse Ox O2 Delivery O2 Flow Rate FiO2 05/17/17 08:00 Room Air 05/17/17 07:56 36.6 65 16 184/107 (132) 97 2.0 05/17/17 07:10 168/94 05/17/17 07:08 58 16 168/94 99 05/17/17 06:52 99 Nasal Cannula 1.0 05/17/17 06:37 61 14 100 Nasal Cannula 1.5 05/17/17 06:31 160/94 05/17/17 06:27 66 23 99 05/17/17 06:22 67 22 177/94 93 Nasal Cannula 1.0 05/17/17 06:12 62 25 158/91 96 Nasal Cannula 1.0 05/17/17 06:02 63 22 187/101 99 Nasal Cannula 1.0 05/17/17 05:52 64 21 140/77 99 Nasal Cannula 1.0 05/17/17 05:41 54 193/104 98 Nasal Cannula 1.0 05/17/17 05:30 53 18 160/107 97 Nasal Cannula 1.0 05/17/17 05:28 100 Nasal Cannula 1.0 05/17/17 05:28 54 16 145/82 100 Nasal Cannula 1.0 05/17/17 05:27 93 Room Air 05/17/17 04:42 61 15 169/99 96 Nebulizer 05/17/17 04:34 57 29 173/104 100 Nebulizer 05/17/17 04:28 95 Room Air 05/17/17 04:10 56 05/17/17 04:09 52 16 179/100 95 Room Air 05/17/17 03:53 36.7 54 20 164/99 96 Room Air The patient is alert and oriented. Mood and affect appeared normal. He answered all questions appropriately. HEENT: Pupils are equal and reactive to light and accommodation. Extraocular movements are intact. The sclerae are anicteric. Neuro: Cranial nerves intact Neck: Patient's neck is supple. He has palpable carotid pulses bilaterally without bruits on auscultation. There is no evidence of jugular venous distention. The thyroid is not enlarged. Lungs: Clear to auscultation bilaterally. He has good air movement without use of accessory muscles. No rales wheezes or rhonchi. Cardiac: Heart demonstrates a regular rate and rhythm. Normal S1 and S2. No murmurs on examination. Pulses: The patient has palpable radial pulses bilaterally that are equal in intensity Extremities: There was no evidence of hypoperfusion. There is no cyanosis or clubbing. There is no edema. Skin: I did not appreciate any rashes on examination today. Data Laboratory Results: Last 24 Hours Test 05/17/17 04:10 05/17/17 04:24 05/17/17 11:25 White Blood Count 6.31 K/uL Red Blood Count 5.26 M/uL Hemoglobin 16.3 g/dL Hematocrit 48.6 % Mean Corpuscular Volume 92.4 fL Mean Corpuscular Hemoglobin 31.0 pg Mean Corpuscular Hemoglobin Concent 33.5 g/dl Platelet Count 137 K/uL Mean Platelet Volume 10.5 fL Neutrophils (%) (Auto) 48.6 % Lymphocytes (%) (Auto) 35.3 % Monocytes (%) (Auto) 10.5 % Eosinophils (%) (Auto) 4.9 % Basophils (%) (Auto) 0.5 % Neutrophils # (Auto) 3.07 K/uL Lymphocytes # (Auto) 2.23 K/uL Monocytes # (Auto) 0.66 K/uL Eosinophils # (Auto) 0.31 K/uL Basophils # (Auto) 0.03 K/uL RDW Standard Deviation 49.8 fL RDW Coefficient of Variation 14.8 % Immature Granulocyte % (Auto) 0.2 % Immature Granulocyte # (Auto) 0.01 K/uL Prothrombin Time 10.8 SECONDS Prothromb Time International Ratio 1.0 Activated Partial Thromboplast Time 27.8 SECONDS Partial Thromboplastin Ratio 1.1 Sodium Level 140 mmol/L Potassium Level 3.7 mmol/L Chloride Level 106 mmol/L Carbon Dioxide Level 26 mmol/L Anion Gap 8.0 mmol/L Blood Urea Nitrogen 27 mg/dl Creatinine 1.50 mg/dl Est Creatinine Clear Calc Drug Dose 41.9 ml/min Estimated GFR () 52.4 Estimated GFR (Non- 45.2 BUN/Creatinine Ratio 18.3 Random Glucose 103 mg/dl Estimated Average Glucose 117 mg/dl Hemoglobin A1c 5.7 % Calcium Level 9.0 mg/dl Total Bilirubin 0.6 mg/dl Direct Bilirubin 0.1 mg/dl Aspartate Amino Transf (AST/SGOT) 26 U/L Alanine Aminotransferase (ALT/SGPT) 34 U/L Alkaline Phosphatase 66 U/L Total Creatine Kinase 281 U/L Creatine Kinase MB 5.0 ng/ml Creatine Kinase MB Ratio 1.8 Troponin I 0.108 ng/ml Total Protein 6.6 gm/dl Albumin 3.6 gm/dl Triglycerides Level 192 mg/dl Cholesterol Level 225 mg/dl HDL Cholesterol 38 mg/dl LDL Cholesterol, Calculated 149 mg/dl VLDL Cholesterol, Calculated 38 mg/dl Cholesterol/HDL Ratio 5.9 Thyroid Stimulating Hormone (TSH) 4.570 uIu/ml Bedside Troponin I 0.080 ng/ml Imaging: Single-view chest x-ray did not demonstrate any acute cardiopulmonary abnormalities EKG: Sinus rhythm with bifascicular block. No significant ST or T-wave changes when compared to old EKGs Telemetry reviewed: No significant arrhythmia Preliminary echocardiogram demonstrated preserved LV systolic function Patient underwent stress echocardiogram in April 2015. This was a normal study without evidence of inducible ischemia. Patient exercised for 10 minutes Assessment & Plan 1. Elevated cardiac troponin: The etiology of the patient's elevated troponin is unclear. His presenting symptom was primarily dyspnea and fairly acute at that. One potential competing ideology would be pulmonary embolus. However, the patient did not have symptoms of chest discomfort, tachycardia or hypoxia. He appears to have preserved LV systolic function. The level of his elevation is quite mild. He did not describe any exertional angina or chest pain although he has become more sedentary recently. He has had some episodes of tachycardia which may be atrial fibrillation. In some circumstances could result in elevation of troponin. However, her review of his records suggest that even during admissions for AFib with RVR he has not had elevations in biomarkers previously. While I think the likelihood of his presentation being a acute coronary syndrome is low, would seem reasonable to perform some type of objective evaluation. Given the elevation in his current breathing difficulty likely with bronchitis exercise testing would be difficult. Therefore, I arranged for him to have a cardiac perfusion study later today. Additional recommendations will be based on that result. 2. Atrial fibrillation: Patient does describe intermittent periods of tachycardia. These are presumed to be atrial fibrillation. He has not been on any form of medical therapy for atrial fibrillation in some time. Based on his history he is a chads Vasc score 2 (age and hypertension). Generally he would benefit from some form of systemic anticoagulation although his overall risk is on the lower side. I would recommend re-initiation of Eliquis or even Xarelto if he is willing to resume systemic anticoagulation.
[2017-05-17] MEDS ORDERED: PERFLUTREN LIPID MICROSPHERE (DEFINITY) IV ONE (12:30)
--- NOTE | 2017-05-17 13:26 | ECHOCARDIOGRAM REPORT ---
*NOTICE TO RECEIVING [employer]Y This information is strictly Confidential and protected under [place] law. [place] law prohibits you from making any further disclosure of this information unless further disclosure is expressly permitted by the written consent of the person to whom it pertains or is authorized by law. A general authorization for the release of medical or other information is not sufficient for this purpose. Hospital accepts no responsibility if the information is made available to any other person, INCLUDING THE PATIENT. Interpretation Summary * Name: MANA PADILLA Study Date: 05/17/2017 08:39 AM BP: 184/107 mmHg * Patient Location: [facility] HR: 65 * : 1940 (M/d/yyyy) Gender: Male Height: 63 in * Age: 76 yrs Ethnicity: CA Weight: 190 lb * Ordering Physician: De Ferrara * Referring Physician: Self, Referred * Performed By: Shannon Mcmanus RCS * * Reason For Study: NSTEMI / ELEVATED TROPONIN * BSA: 1.9 m2 * -- Conclusions -- * There is mild asymmetric left ventricular hypertrophy. * Left ventricular systolic function is normal. * Grade I diastolic dysfunction, (abnormal relaxation pattern). * There is mild mitral regurgitation. * Right ventricular systolic pressure is elevated at 30-40mmHg. Procedure Details * A complete two-dimensional transthoracic echocardiogram was performed (2D, M-mode, Doppler and color flow Doppler). * The study was technically difficult. * A contrast injection of Definity was performed to improve assessment of LV function. * Contrast was injected into an intravenous site in the left arm. * One vial of Definity ultrasound contrast was diluted in normal saline to a total volume of 10 ml. A total of '2' ml of solution was administered during imaging. * Lot # [id number] of Definity utilized for procedure. * Expiration date JUN 08. Left Ventricle * The left ventricle is normal in size. * There is mild asymmetric left ventricular hypertrophy. * Left ventricular systolic function is normal. * Ejection Fraction = 60-65%. * Grade I diastolic dysfunction, (abnormal relaxation pattern). * The left ventricular wall motion is normal. Right Ventricle * The right ventricle is normal in size and function. Atria * The left atrial size is normal. * Right atrial size is normal. Mitral Valve * The mitral valve anatomy is normal. * There is mild mitral regurgitation. Tricuspid Valve * The tricuspid valve is not well visualized, but is grossly normal. * There is trace tricuspid regurgitation. * Right ventricular systolic pressure is elevated at 30-40mmHg. Aortic Valve * The aortic valve is normal in structure and function. * No hemodynamically significant valvular aortic stenosis. * There is no significant aortic regurgitation. Great Vessels * The aortic root is normal size. Pericardium/Pleural * There is no pericardial effusion. MMode 2D Measurements and Calculations IVSd 1.6 cm IVSs 1.8 cm LVIDd 3.9 cm LVIDs 2.9 cm LVPWd 1.1 cm LVPWs 1.4 cm IVS/LVPW 1.4 FS 24.9 % EDV(Teich) 67.0 ml ESV(Teich) 33.5 ml EF(Teich) 49.9 % EDV(cubed) 60.5 ml ESV(cubed) 25.6 ml EF(cubed) 57.7 % % IVS thick 12.3 % % LVPW thick 25.0 % LV mass(C)d 193.4 grams LV mass(C)dI 102.2 grams/m\S\2 LV mass(C)s 171.2 grams LV mass(C)sI 90.5 grams/m\S\2 SV(Teich) 33.4 ml SI(Teich) 17.7 ml/m\S\2 SV(cubed) 34.9 ml SI(cubed) 18.4 ml/m\S\2 Ao root diam 2.9 cm Ao root area 6.5 cm\S\2 ACS 1.8 cm LA dimension 3.1 cm LA/Ao 1.1 LVOT diam 2.0 cm LVOT area 3.0 cm\S\2 Doppler Measurements and Calculations MV E max weston 48.5 cm/sec MV A max weston 71.7 cm/sec MV E/A 0.68 MV P1/2t max weston 63.0 cm/sec MV P1/2t 74.6 msec MVA(P1/2t) 2.9 cm\S\2 MV dec slope 247.3 cm/sec\S\2 MV dec time 0.28 sec Ao V2 max 110.4 cm/sec Ao max PG 4.9 mmHg Ao max PG (full) 1.1 mmHg ALEXSANDRA(V,A) 2.7 cm\S\2 ALEXSANDRA(V,D) 2.7 cm\S\2 LV V1 max PG 3.8 mmHg LV V1 max 97.4 cm/sec PA V2 max 119.7 cm/sec PA max PG 5.7 mmHg TR max weston 270.2 cm/sec
[2017-05-17 14:48] LABS: PARTIAL THROMBOPLASTIN RATIO 3.6
[2017-05-17 14:49] LABS: CKMB/CK RATIO 1.6 (0-3.0)
[2017-05-17 18:04] LABS: PARTIAL THROMBOPLASTIN RATIO 3.1
[2017-05-17 18:15] LABS: CKMB/CK RATIO 1.5 (0-3.0)
[2017-05-17 22:22] LABS: PARTIAL THROMBOPLASTIN RATIO 2.6
[2017-05-18] VITALS (15 sets, daily range): BP systolic 128–170; BP diastolic 77–100; PULSE 50–74; TEMP 36.3–36.9; O2SAT 93–98
[2017-05-18 06:12] LABS: HEMATOCRIT 46.3 % (42-52); MEAN CELL VOLUME 91.7 fL (80-100); MEAN CORPUSCULAR HEMOGLOBIN 30.7 pg (25-34); MEAN CORPUSCULAR HGB CONC 33.5 g/dl (32-36); MEAN PLATELET VOLUME 10.5 fL (7.4-10.4); PLATELET COUNT 117 K/uL (130-400); RED BLOOD COUNT 5.05 M/uL (4.7-6.1); WHITE BLOOD COUNT 5.44 K/uL (4.8-10.8)
[2017-05-18] MEDS: ALBUT/IPRATROP 3MG/0.5MG NEB 3 ML VIAL INH SCH ×4 (06:26→20:15)
--- NOTE | 2017-05-18 06:40 | DIAGNOSTIC IMAGING REPORT ---
ULTRASOUND VENOUS DOPPLER LWR EXT BILA CLINICAL HISTORY: Leg swelling and shortness of breath COMPARISON STUDY: No previous studies for comparison. FINDINGS: Real-time and color flow Doppler imaging were performed. Flow was seen within the femoral, popliteal and calf veins with no intraluminal thrombus demonstrated. The saphenous vein is patent. IMPRESSION: No evidence of lower extremity DVT. Electronically signed by: Primo Cordero M.D. 05/18/2017 6:39 AM Dictated Date/Time: 05/18/2017 6:39 AM
[2017-05-18 06:41] LABS: PARTIAL THROMBOPLASTIN RATIO 3.2
[2017-05-18 06:46] LABS: BUN/CREATININE RATIO 13.4 (10-20); CALCIUM 8.4 mg/dl (8.5-10.1); CREATININE 1.5 mg/dl (0.60-1.40); POTASSIUM 3.7 mmol/L (3.5-5.1)
[2017-05-18] MEDS: ASPIRIN 81 MG ECTAB PO SCH (08:46)
[2017-05-18] MEDS: ATORVASTATIN 20 MG TAB PO SCH (08:46)
[2017-05-18] MEDS: AMLODIPINE BESYLATE 5 MG TAB PO SCH (08:46)
[2017-05-18] MEDS: FLUTICASONE PROPIONATE NA SPR 16 GM BTL NAE SCH (08:47)
[2017-05-18] MEDS: METOPROLOL TARTRATE 25 MG TAB PO SCH ×2 (08:47→21:14)
[2017-05-18] MEDS ORDERED: OPTIRAY 320 IV PRN (12:00)
[2017-05-18] MEDS ORDERED: SODIUM CHLORIDE 0.9% 500ML 500 ML IV STA (12:40)
[2017-05-18] MEDS: SODIUM CHLORIDE 0.9% 1000ML 1,000 ML IV SCH ×2 (13:42→21:17)
--- NOTE | 2017-05-18 14:07 | MYOCARDIAL PERFUSION SCAN ---
ONE-DAY NUCLEAR MEDICINE TECHNETIUM-99M CARDIOLITE MYOCARDIAL PERFUSION SCAN CLINICAL HISTORY: The patient has a history of paroxysmal atrial fibrillation and has been experiencing dyspnea. COMPARISON: None. TECHNIQUE: For the stress portion of the study, 34.0 mCi of Technetium 99 m Cardiolite IV was injected at 12:50 pm on 05/17/2017. Thirty minutes following the injection, imaging of the heart was performed in multiple projection. For the rest portion of the study, 10.8 mCi of Technetium 99 m Cardiolite was injected IV at 11:05 am. One hour following the injection, imaging of the heart was performed in the same projections. For the stress portion of the study, 0.4 mg of Lexiscan was injected intravenously as per protocol. The patient did not experience chest discomfort. There were no EKG changes. Following the study, the patient was hemodynamically stable without complaints. FINDINGS: The short axis, vertical long axis, horizontal long axis images were reviewed in detail. There is normal tracer uptake at both stress and rest. This excludes a prior myocardial infarction and evidence of stress induced myocardial ischemia. The left ventricle demonstrates normal systolic function without wall motion abnormalities. The left ventricular ejection fraction is 69%. CONCLUSIONS: 1. No scintigraphic evidence of a prior myocardial infarction or stress induced myocardial ischemia. 2. No Lexiscan induced chest pain. 3. No Lexiscan induced EKG changes. 4. Normal left ventricular systolic function without wall motion abnormality. Left ventricular ejection fraction is 69%.
[2017-05-18 15:06] LABS: PARTIAL THROMBOPLASTIN RATIO 2.5
--- NOTE | 2017-05-18 15:55 | DIAGNOSTIC IMAGING REPORT ---
CT ANGIOGRAM OF THE CHEST CLINICAL HISTORY: Shortness of breath. Leg swelling. COMPARISON STUDY: Chest x-ray dated 05/17/2017. TECHNIQUE: Following the IV administration of 94 mL of Optiray-320, CT angiogram of the thorax was performed from the thoracic inlet to the lung bases utilizing the pulmonary embolus protocol. Images are reviewed in the axial, sagittal, and coronal planes. IV contrast was administered without complication. MIP imaging was performed. A dose lowering technique was utilized adhering to the principles of ALARA. CT DOSE: 624.35 mGycm FINDINGS: No pathologically enlarged axillary mediastinal or hilar lymph nodes were visualized. There was no evidence of thoracic aortic dilatation. There were no pulmonary artery filling defects to indicate acute pulmonary embolism. No pleural effusions are visualized. There is mild respiratory artifact. There is lower lobe bronchial wall thickening and mucous plugging. There is no focal pulmonary consolidation. IMPRESSION: 1. No evidence of acute pulmonary embolism 2. No evidence of focal pulmonary consolidation 3. Lower lobe bronchial wall thickening and mucous plugging Electronically signed by: Primo Cordero M.D. 05/18/2017 3:53 PM Dictated Date/Time: 05/18/2017 3:50 PM
--- NOTE | 2017-05-18 16:43 | Family Medicine Progress Note ---
Progress Note Date of Service May 18, 2017. Subjective Pt evaluation today including: conversation w/ patient, physical exam, chart review, lab review The patient was seen and examined at bedside. Tele showed sinus rhythm in the 60s. Patient is resting comfortably in bed. Plan of care was described to the patient and all questions were answered. Constitutional: No fever, No chills, No sweats, No weight loss ENT: No hearing loss Respiratory: one episode of SOB this AM, pt believe it was related to anxiety, No sputum, No wheezing Cardiovascular: No chest pain, No edema Abdomen: No pain, No nausea, No diarrhea Musculoskeletal: No joint pain Psychiatric: No depression symptoms Skin: No rash Objective Physical Exam Notes: General Appearance: WD/WN, no apparent distress, + obese Eyes: PERRL, EOMI ENT: normal ENT inspection Neck: supple, no JVD Respiratory/Chest: chest non-tender, lungs clear, normal breath sounds, no respiratory distress, no accessory muscle use Cardiovascular: regular rate, rhythm, no edema, no gallop, no JVD, no murmur Abdomen: normal bowel sounds, non tender, soft, no organomegaly, no pulsatile mass Extremities: normal range of motion, non-tender, normal inspection, no pedal edema, no calf tenderness Neurologic/Psychiatric: gunite mixer II-XII nml as tested, alert, normal mood/affect, oriented x 3 Skin: no rash Assessment and Plan 76M with a PMHx of Afib p/w NSTEMI. Trops peaked at 0.1. Echo grossly normal. Nuclear cardiac stress test grossly normal. CT Scan for PE was normal. No events on Tele. NSTEMI - Will hold all home 'hormone' meds. - Morphine IV and Nitro SL PRN for Pain. - Trop peak at 0.1 and downtrending. - Echo grossly normal. - Nuclear stress test grossly normal. - CT Chest for PE grossly normal. - Continue ASA 81mg daily - Continue Lipitor 20mg daily. - Continue Metoprolol 12.5mg BID. - Will restart Eliquis 5mg BID. HTN - Metoprolol as above. - Amlodipine 5mg daily. Asthma - Duonebs Q6H - Albuterol Q2H PRN A. Fib - Currently in sinus rhythm. - Metoprolol 12as above. - Restarting Eliquis as above. Elevated TSH - Hypothyroid according to history but not on any home meds. - Will hold off restarting Synthroid at present, may be elevated due to sick euthyroid, recommend follow up as outpatient. Dispo: Transfer to Med Surg, Heart Healthy Diet, Anticipate DC tomorrow. FULL CODE Resident Involvement: Resident Care Provided Care Provided: Adult Hospital Medicine
--- NOTE | 2017-05-18 16:48 | Discharge Summary ---
Discharge Summary Date of Service May 18, 2017. Discharge Summary Admission Date: May 17, 2017 at 05:30 Discharge Date: May 19, 2017 Discharge Disposition: Home Principal Diagnosis: Viral Bronchitis Procedures: ONE-DAY NUCLEAR MEDICINE TECHNETIUM-99M CARDIOLITE MYOCARDIAL PERFUSION SCAN CLINICAL HISTORY: The patient has a history of paroxysmal atrial fibrillation and has been experiencing dyspnea. COMPARISON: None. TECHNIQUE: For the stress portion of the study, 34.0 mCi of Technetium 99 m Cardiolite IV was injected at 12:50 pm on 05/17/2017. Thirty minutes following the injection, imaging of the heart was performed in multiple projection. For the rest portion of the study, 10.8 mCi of Technetium 99 m Cardiolite was injected IV at 11:05 am. One hour following the injection, imaging of the heart was performed in the same projections. For the stress portion of the study, 0.4 mg of Lexiscan was injected intravenously as per protocol. The patient did not experience chest discomfort. There were no EKG changes. Following the study, the patient was hemodynamically stable without complaints. FINDINGS: The short axis, vertical long axis, horizontal long axis images were reviewed in detail. There is normal tracer uptake at both stress and rest. This excludes a prior myocardial infarction and evidence of stress induced myocardial ischemia. The left ventricle demonstrates normal systolic function without wall motion abnormalities. The left ventricular ejection fraction is 69%. CONCLUSIONS: 1. No scintigraphic evidence of a prior myocardial infarction or stress induced myocardial ischemia. 2. No Lexiscan induced chest pain. 3. No Lexiscan induced EKG changes. 4. Normal left ventricular systolic function without wall motion abnormality. Left ventricular ejection fraction is 69%. ULTRASOUND VENOUS DOPPLER LWR EXT BILA CLINICAL HISTORY: Leg swelling and shortness of breath COMPARISON STUDY: No previous studies for comparison. FINDINGS: Real-time and color flow Doppler imaging were performed. Flow was seen within the femoral, popliteal and calf veins with no intraluminal thrombus demonstrated. The saphenous vein is patent. IMPRESSION: No evidence of lower extremity DVT. CHEST ONE VIEW PORTABLE HISTORY: 76 years-old Male SOB acute shortness of breath. Initial exam. COMPARISON: Chest radiograph 05/13/2017 TECHNIQUE: Portable upright AP view of the chest FINDINGS: Cardiac silhouette is upper limits of normal, unchanged. There is chronic blunting of the costophrenic angle suggesting scarring. No pneumothorax number pleural effusion or focal airspace consolidation. No overt edema. The bones of the chest appear to be grossly intact. IMPRESSION: No acute cardiopulmonary process. ECHOCARDIOGRAM * -- Conclusions -- * There is mild asymmetric left ventricular hypertrophy. * Left ventricular systolic function is normal. * Grade I diastolic dysfunction, (abnormal relaxation pattern). * There is mild mitral regurgitation. * Right ventricular systolic pressure is elevated at 30-40mmHg. CT ANGIOGRAM OF THE CHEST CLINICAL HISTORY: Shortness of breath. Leg swelling. COMPARISON STUDY: Chest x-ray dated 05/17/2017. TECHNIQUE: Following the IV administration of 94 mL of Optiray-320, CT angiogram of the thorax was performed from the thoracic inlet to the lung bases utilizing the pulmonary embolus protocol. Images are reviewed in the axial, sagittal, and coronal planes. IV contrast was administered without complication. MIP imaging was performed. A dose lowering technique was utilized adhering to the principles of ALARA. CT DOSE: 624.35 mGycm FINDINGS: No pathologically enlarged axillary mediastinal or hilar lymph nodes were visualized. There was no evidence of thoracic aortic dilatation. There were no pulmonary artery filling defects to indicate acute pulmonary embolism. No pleural effusions are visualized. There is mild respiratory artifact. There is lower lobe bronchial wall thickening and mucous plugging. There is no focal pulmonary consolidation. IMPRESSION: 1. No evidence of acute pulmonary embolism 2. No evidence of focal pulmonary consolidation 3. Lower lobe bronchial wall thickening and mucous plugging Medication Reconciliation New Medications: Atorvastatin (Atorvastatin Calcium) 20 Mg Tab 20 MG PO QAM for 30 Days, #30 TAB Continued Medications: Albuterol Hfa (Ventolin Hfa) 200 Puffs/47785 Mcg Aers 2 PUFFS INH Q4-6 PRN for Wheezing, #1 INHALER Apixaban (Eliquis) 5 Mg Tab 5 MG PO BID Ascorbic Acid (Vitamin C) 500 Mg Tab 500 MG PO DAILY Cholecalciferol (Vitamin D 1000 Unit) 1,000 Unit Cap 1000 INTER.UNIT PO DAILY, CAP Coenzyme Q10 (Ubidecarenone) (Co Q-10 Maximum Strength) 400 Mg Cap 1 CAP PO TID Fish Oil ([place]-3) 1 Ea Cap 2 CAP PO BID, CAP Fluticasone Propionate (Nasal) (Flonase Allergy Relief) 50 Mcg/Act Spr 1 SPRAY ANITA DAILY Metoprolol Tartrate (Lopressor) (Lopressor) 25 Mg Tab 12.5 MG PO BID Vitamin B Cmplx/Vitc/Folic Ac (Nephrocaps) Cap 1 CAP PO BID, CAP Discontinued Medications: Cortisone Acetate (Cortisone Acetate) 25 Mg Tab 0.5 TAB PO BID Lysine Hcl (L-Lysine Hcl) 500 Mg Cap 500 MG PO BID Taurine (Taurine) 500 Mg Cap 500 MG PO BID Discharge Exam The patient was seen and examined at bedside. Patient is resting comfortably in bed. Plan of care was described to the patient and all questions were answered. Constitutional: No fever, No chills, No sweats, No weight loss ENT: No hearing loss Respiratory: one episode of SOB this AM, pt believe it was related to anxiety, No sputum, No wheezing Cardiovascular: No chest pain, No edema Abdomen: No pain, No nausea, No diarrhea Musculoskeletal: No joint pain Psychiatric: No depression symptoms Skin: No rash Physical Exam Notes: General Appearance: WD/WN, no apparent distress, Eyes: PERRL, EOMI ENT: normal ENT inspection Neck: supple, no JVD Respiratory/Chest: chest non-tender, lungs clear, normal breath sounds, no respiratory distress, no accessory muscle use Cardiovascular: regular rate, rhythm, no edema, no gallop, no JVD, no murmur Abdomen: normal bowel sounds, non tender, soft, no organomegaly, no pulsatile mass Extremities: normal range of motion, non-tender, normal inspection, no pedal edema, no calf tenderness 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 Trops peaked at 0.1. Echo grossly normal. Nuclear cardiac stress test grossly normal. CT Scan for PE was normal. No events on Tele. Patient was discharged in good condition and several medication changes were made. Pt advised not to take herbal medications unless approved by his PCP. Pt was advised to restart Eliquis for his Afib. Cardiology recommends ASA 81mg daily, Lipitor 20mg and Metoprolol 12.5mg BID. While in the hospital the patient was given 5mg daily of Amlodipine for HTN. We recommend outpatient follow up for further BP management. The patient also received Duonebs Q6H scheduled in the hospital. TSH was elevated on admission (TSH = 4.6), we recommend retesting as outpatient in several weeks. TSH may have been elevated due to sick euthyroid syndrome. Total Time Spent: Less than 30 minutes (22 min) This includes examination of the patient, discharge planning, medication reconciliation, and communication with other providers. Discharge Instructions Please refer to the electronic Patient Visit Report (Discharge Instructions) for additional information. Follow-Up Follow up with PCP in one week. Additional Copies To RV. Nova MD Resident Involvement: Resident Care Provided Care Provided: Adult [facility] Medicine
[2017-05-18] MEDS ORDERED: GUAIFENESIN 600 MG TABCR PO ONE (17:29)
[2017-05-18] MEDS: APIXABAN 2.5 MG TAB PO SCH (21:15)
[2017-05-19 00:52] VITALS: BP 146/88; PULSE 68; TEMP 36.4; O2SAT 95
[2017-05-19] MEDS: SODIUM CHLORIDE 0.9% 1000ML 1,000 ML IV SCH (05:05)
[2017-05-19 06:56] LABS: BUN/CREATININE RATIO 9.6 (10-20); CALCIUM 8.3 mg/dl (8.5-10.1); CREATININE 1.3 mg/dl (0.60-1.40); POTASSIUM 3.9 mmol/L (3.5-5.1)
[2017-05-19 07:28] VITALS: BP 180/91; PULSE 66; TEMP 36.6; O2SAT 96
[2017-05-19] MEDS: ALBUT/IPRATROP 3MG/0.5MG NEB 3 ML VIAL INH SCH ×2 (07:30→11:13)
[2017-05-19 07:32] VITALS: PULSE 55; O2SAT 97
[2017-05-19] MEDS: FLUTICASONE PROPIONATE NA SPR 16 GM BTL NAE SCH (07:50)
[2017-05-19] MEDS: METOPROLOL TARTRATE 25 MG TAB PO SCH (07:51)
[2017-05-19] MEDS: AMLODIPINE BESYLATE 5 MG TAB PO SCH (07:52)
[2017-05-19] MEDS: ATORVASTATIN 20 MG TAB PO SCH (07:52)
[2017-05-19] MEDS: ASPIRIN 81 MG ECTAB PO SCH (07:52)
[2017-05-19] MEDS: APIXABAN 2.5 MG TAB PO SCH (07:53)
[2017-05-19 08:00] VITALS: O2SAT 97
--- NOTE | 2017-05-19 08:03 | Discharge Instructions ---
Discharge Instructions Date of Service May 19, 2017. Admission Reason for Admission: Elevated Troponin, Shortness Of Breath Discharge Discharge Diagnosis / Problem: Viral Bronchitis Discharge Goals Goal(s): Decrease discomfort, Improve function, Increase independence, Improve disease control, Learn about illness Activity Recommendations Activity Limitations: per Instructions/Follow-up section . Instructions / Follow-Up Instructions / Follow-Up The Cat Scan of your lungs showed no evidence of a blood clot in your lungs. Our energy risk management analyst does not believe you had a heart attack. This determination is based on your EKG findings, echocardiogram findings and cardiac nuclear stress imaging. A copy of all these results will be sent to your Primary Care Provider. Follow up with PCP within one week. You should restart your Eliquis 5mg every 12 hours. We have added a new medication, Lipitor, to your medication regime. Please take 1 pill daily. Continue all home prescription medications including your Metoprolol. You may also restart your Vitamin C, Vitamin B12, Vitamin D and Coenzyme Q10 supplements. Albuterol can be used up to every two hours for cough and shortness of breath. View Albuterol as your cough medicine. Current Hospital Diet Patient's current hospital diet: AHA Diet (Heart Healthy) Discharge Diet Recommended Diet: AHA Diet (Heart Healthy) Pending Studies Studies pending at discharge: no Laboratory Results Hemoglobin A1c Test 05/17/17 04:10 Range/Units Estimated Average Glucose 117 mg/dl Hemoglobin A1c 5.7 H 4.5-5.6 % Lipid Panel Test 05/17/17 04:10 Range/Units Triglycerides Level 192 H 0-150 mg/dl Cholesterol Level 225 H 0-200 mg/dl HDL Cholesterol 38 mg/dl Cholesterol/HDL Ratio 5.9 LDL Cholesterol, Calculated 149 mg/dl Medical Emergencies . Who to Call and When: Medical Emergencies: If at any time you feel your situation is an emergency, please call 911 immediately. . Non-Emergent Contact Non-Emergency issues call your: Primary Care Provider . . "Provider Documentation" section prepared by Dougie Ross. . VTE Core Measure Inpt VTE Proph given/why not?: Other Anticoagulation (heparin infusion + eliquis ) Resident Involvement: Resident Care Provided Care Provided: Adult Hospital Medicine
[2017-05-19] MEDS ORDERED: LISI-725 PO (08:07)
[2017-05-19] MEDS ORDERED: LPT20 PO (08:12)
[2017-05-19 09:00] VITALS: BP 180/91; PULSE 55; TEMP 36.6; O2SAT 97
[2017-05-19] MEDS ORDERED: GUAIFENESIN 600 MG TABCR PO SCH (09:00)
[2017-05-19 11:14] VITALS: PULSE 61; O2SAT 96
== END 2017-05-19 12:11 | disposition home or self-care (01) | DRG 282 ==
LOC: C.EDB 03:49 → C.MED 05:30 → ENRESERV 06:10
PROVIDERS: ADMIT Student in an Organized Health Care Education/Training Program; ATTEND Hospitalist
DX: I21.4 Non-ST elevation (NSTEMI) myocardial infarction (principal); J20.8 Acute bronchitis due to other specified organisms; I48.91 Unspecified atrial fibrillation; I12.9 Hypertensive chronic kidney disease with stage 1 through stage 4 chronic kidney disease, or unspecified chronic kidney disease; N18.3 Chronic kidney disease, stage 3 (moderate); E78.5 Hyperlipidemia, unspecified; J45.909 Unspecified asthma, uncomplicated; G47.33 Obstructive sleep apnea (adult) (pediatric); Z79.899 Other long term (current) drug therapy

== ENCOUNTER 2017-05-23 11:15 | Emergency (ER) | payer OTHER ==
[~2017-05-23] VITALS: Ht 160 cm; Wt 83.6 kg
[~2017-05-23 11:15] MED LIST changes: -APIX1TAB3 PO; -ASCA500 PO; +B-CO1CAP17 PO; -B-COTAB18 PO; -BENZ1CAP90 PO; -CHOL100010 PO; -CYAN100T PO; -DOXY-300 OR; -FLUT0.15 NAE; -GINK40TA3 PO; -IODICRY PO; +LPT20 PO; -MAGN250T22 PO; -METO25TA56 PO; -PRAS1TAB PO; -PYRI50TA77 PO; -RHOD300C PO; -THIA100T11 PO; -TMB100 PO; -VITA1TAB4 PO
[2017-05-23 11:23] VITALS: TEMP 36.2; Ht 160 cm; Wt 83.6 kg
[2017-05-23 12:00] VITALS: O2SAT 98
[2017-05-23] MEDS ORDERED: ALBUT/IPRATROP 3MG/0.5MG NEB 3 ML VIAL INH STA (12:06)
--- NOTE | 2017-05-23 12:06 | EMERGENCY ROOM VISIT NOTE ---
History Report prepared by Meg: Tami Cox Under the Supervision of: Dr. Carlton Hart M.D. First contact with patient: 11:51 Chief Complaint: SHORTNESS OF BREATH Stated Complaint: SOB History of Present Illness The patient is a 76 year old male who presents to the Emergency Room with complaints of persistent shortness of breath that began several days ago. The patient states that he recently was evaluated in the hospital for bronchitis, noting that he was discharged on Tuesday. He states that he had a stress test and CT scans for PEs and pneumonia that were negative. The patient states that he has had persistent congestion and a productive cough. He states that he was discharged on inhalers and states that he has been using them. The patient states that he feels he cannot get enough air in his lungs. He states that over the past three weeks he has noticed increased belching and gas pains in his lower abdomen. The patient reports a history of atrial fibrillation noting that he is on Eloquis, aspirin, and Metoprolol. He reports a decrease in appetite recently. The patient states that he had a loose bowel movement this morning. He denies any chest pain, nausea, vomiting, diarrhea, or constipation. The patient denies any history of anxiety. He denies being a smoker. Source of History: patient Onset: several days ago Position: other (global) Quality: other (shortness of breath) Timing: other (persistent) Associated Symptoms: + cough (productive), No chest pain, No nausea, No vomiting, No diarrhea Note: Associated Symptoms: decrease in appetite, loose bowel movement, gas pains, increased belching, congestion Review of Systems See HPI for pertinent positives and negatives. A total of ten systems were reviewed and were otherwise negative. Past Medical & Surgical Medical Problems: (1) Benign paroxysmal positional vertigo (2) Bronchitis Nos (3) Chronic Sinusitis Nos (4) Elevated troponin (5) Endocrine Disorder Nos (6) Hyperlipidemia Nec/Nos (7) Hypertension Nos (8) Lipoprotein Deficiencies (9) Rapid atrial fibrillation (10) Shortness of breath (11) Tachycardia Nos (12) Thyroid disorder (13) Unspecified Sleep Apnea Family History FHx: heart disease Social History Smoking Status: Never Smoker Alcohol Use: none Drug Use: none Marital Status: single Housing Status: lives with significant other Occupation Status: retired Current/Historical Medications Scheduled Apixaban (Eliquis), 5 MG PO BID Ascorbic Acid (Vitamin C), 500 MG PO DAILY Atorvastatin (Atorvastatin Calcium), 20 MG PO QAM Azithromycin (Azithromycin), 1 TAB PO DAILY Cholecalciferol (Vitamin D 1000 Unit), 1,000 INTER.UNIT PO DAILY Coenzyme Q10 (Ubidecarenone) (Co Q-10 Maximum Strength), 1 CAP PO TID Famotidine (Pepcid), 20 MG PO BID Fish Oil ([place]-3), 2 CAP PO BID Fluticasone Propionate (Nasal) (Flonase Allergy Relief), 1 SPRAY ANITA DAILY Metoprolol Tartrate (Lopressor) (Lopressor), 12.5 MG PO BID Prednisone (Prednisone), 3 TAB PO DAILY Vitamin B Cmplx/Vitc/Folic Ac (Nephrocaps), 1 CAP PO BID Scheduled PRN Albuterol Hfa (Ventolin Hfa), 2 PUFFS INH Q4-6 PRN for Wheezing Allergies Coded Allergies: Theophylline (Verified Adverse Reaction, Intermediate, HIGH BP,TACHYCARDIA , 05/23/17) Physical Exam Vital Signs Date Time Temp Pulse Resp B/P (MAP) Pulse Ox O2 Delivery O2 Flow Rate FiO2 05/23/17 17:51 71 18 120/77 94 05/23/17 16:48 97 05/23/17 16:19 92 21 126/70 98 Room Air 05/23/17 14:51 72 18 95 Room Air 05/23/17 13:11 66 18 136/88 98 Room Air 05/23/17 13:10 98 Room Air 05/23/17 12:22 63 05/23/17 12:00 64 19 126/79 98 Room Air 05/23/17 12:00 98 Room Air 05/23/17 11:23 36.2 79 20 117/82 96 Room Air Physical Exam GENERAL: Awake, alert, anxious and dyspneic-appearing, in no distress HENT: Normocephalic, atraumatic. Oropharynx unremarkable. EYES: Normal conjunctiva. Sclera non-icteric. NECK: Supple. No nuchal rigidity. FROM. No JVD. RESPIRATORY: Clear to auscultation. CARDIAC: Regular rate, normal rhythm. Extremities warm and well perfused. Pulses equal. ABDOMEN: Soft, non-distended. No tenderness to palpation. No rebound or guarding. No masses. RECTAL: Deferred. MUSCULOSKELETAL: Chest examination reveals no tenderness. The back is symmetrical on inspection without obvious abnormality. There is no CVA tenderness to palpation. No joint edema. LOWER EXTREMITIES: Calves are equal size bilaterally and non-tender. No edema. No discoloration. NEURO: Normal sensorium. No sensory or motor deficits noted. SKIN: No rash or jaundice noted. Medical Decision & Procedures ER Provider Diagnostic Interpretation: X-ray: Per my interpretation, radiologist review. SINGLE VIEW CHEST CLINICAL HISTORY: Atypical chest pain. FINDINGS: An AP, portable, upright chest radiograph is compared to study dated 05/17/2017 and correlated with chest CT dated 05/18/2017. The examination is degraded by portable technique and patient rotation. The cardiomediastinal silhouette is unremarkable. Chronic interstitial thickening is similar to previous. The lungs and pleural spaces are otherwise clear. No pneumothorax is seen. The skeletal structures are osteopenic. The bony thorax is grossly intact. IMPRESSION: No acute cardiopulmonary abnormality. Electronically signed by: Daniel Bello M.D. 05/23/2017 12:17 PM Dictated Date/Time: 05/23/2017 12:15 PM Laboratory Results 05/23/17 12:25 Red Blood Count 5.46, Mean Corpuscular Volume 91.8, Mean Corpuscular Hemoglobin 31.1, Mean Corpuscular Hemoglobin Concent 33.9, Mean Platelet Volume 10.4, Neutrophils (%) (Auto) 52.4, Lymphocytes (%) (Auto) 32.3, Monocytes (%) (Auto) 11.0, Eosinophils (%) (Auto) 3.3, Basophils (%) (Auto) 0.8, Neutrophils # (Auto ) 2.71, Lymphocytes # (Auto) 1.67, Monocytes # (Auto) 0.57, Eosinophils # (Auto ) 0.17, Basophils # (Auto) 0.04 05/23/17 12:25 Test 05/23/17 12:25 White Blood Count 5.17 K/uL (4.8-10.8) Red Blood Count 5.46 M/uL (4.7-6.1) Hemoglobin 17.0 g/dL (14.0-18.0) Hematocrit 50.1 % (42-52) Mean Corpuscular Volume 91.8 fL (80-100) Mean Corpuscular Hemoglobin 31.1 pg (25-34) Mean Corpuscular Hemoglobin Concent 33.9 g/dl (32-36) Platelet Count 123 K/uL (130-400) Mean Platelet Volume 10.4 fL (7.4-10.4) Neutrophils (%) (Auto) 52.4 % Lymphocytes (%) (Auto) 32.3 % Monocytes (%) (Auto) 11.0 % Eosinophils (%) (Auto) 3.3 % Basophils (%) (Auto) 0.8 % Neutrophils # (Auto) 2.71 K/uL (1.4-6.5) Lymphocytes # (Auto) 1.67 K/uL (1.2-3.4) Monocytes # (Auto) 0.57 K/uL (0.11-0.59) Eosinophils # (Auto) 0.17 K/uL (0-0.5) Basophils # (Auto) 0.04 K/uL (0-0.2) RDW Standard Deviation 48.6 fL (36.4-46.3) RDW Coefficient of Variation 14.5 % (11.5-14.5) Immature Granulocyte % (Auto) 0.2 % Immature Granulocyte # (Auto) 0.01 K/uL (0.00-0.02) Anion Gap 11.0 mmol/L (3-11) Est Creatinine Clear Calc Drug Dose 41.3 ml/min Estimated GFR () 52.4 Estimated GFR (Non- 45.2 BUN/Creatinine Ratio 17.2 (10-20) Calcium Level 9.5 mg/dl (8.5-10.1) Total Bilirubin 1.0 mg/dl (0.2-1) Direct Bilirubin 0.3 mg/dl (0-0.2) Aspartate Amino Transf (AST/SGOT) 35 U/L (15-37) Alanine Aminotransferase (ALT/SGPT) 60 U/L (12-78) Alkaline Phosphatase 65 U/L (45-117) Troponin I < 0.015 ng/ml (0-0.045) Pro-B-Type Natriuretic Peptide 24 pg/ml (0-900) Total Protein 7.2 gm/dl (6.4-8.2) Albumin 3.8 gm/dl (3.4-5.0) Lipase 357 U/L (73-393) Laboratory results reviewed by me Medications Administered Medications (Trade) Dose Ordered Sig/David Route Start Time Stop Time Status Last Admin Dose Admin Albuterol/ Ipratropium (Duoneb) 3 ml NOW STAT INH 05/23/17 12:06 05/23/17 12:08 DC 05/23/17 12:55 3 ML Albuterol/ Ipratropium (Duoneb) 12 ml ONE ONCE INH 05/23/17 14:45 05/23/17 14:46 DC 05/23/17 14:47 12 ML Prednisone (PredniSONE TAB) 60 mg NOW STAT PO 05/23/17 14:33 05/23/17 14:34 DC 05/23/17 14:43 60 MG Azithromycin (Zithromax Tab) 500 mg NOW ONCE PO 05/23/17 14:45 05/23/17 14:46 DC 05/23/17 14:44 500 MG ECG Indication: SOB/dyspnea Rate (beats per minute): 57 Rhythm: sinus bradycardia Findings: LAFB, RBBB, no acute ischemic change Comparison ECG Date: 05/19/17 ED Course 1158: The patient was evaluated in room C10. A complete history and physical exam was performed. 1206: Ordered DuoNeb 3 ml INH. 1428: I reevaluated the patient and he is doing much better. I discussed the exam findings with him and I discussed the treatment plan. He verbalized complete understanding and agreement. 1433: Ordered Prednisone 60 mg PO. 1445: Ordered Azithromycin 500 mg PO, DuoNeb 12 ml INH. Medical Decision The patient's presentation and history were concerning for Pneumonia bronchitis , CHF, PE, dehydration, electrolyte abnormality, arrhythmia, anxiety I reviewed the patient's past medical history, medications, and the nursing notes as described above. The patient is 76 y/o man with a pmhx of pAfib on Eloquis with recent admission and d/c for sob found to have trop elevation with nuclear stress test unremarkable d/c'd on Tuesday presents to ED with persistent SOB since his d/c per HPI. On arrival patient is anxious and dyspneic appearing but in NAD. Sating 100% on RA. CXR unremarkable. Trop negative. WBC and BNP wnl. Patient feeling improvement with duoneb. Given CT chest on last admission demonstrating lower lobe bronchial wall thickening and mucous plugging sx likely related to bronchitis. Given 1hr duo neb, prednisone, and azithro with good effect. Patient feeling improved and comfortable to go home. Has appointment in AM with pcp as f/u from his last admission. Findings and plan for follow-up review with patient. Patient agreeable and d/c'd per discharge instructions. Medication Reconcilliation Current Medication List: was personally reviewed by me Blood Pressure Screening Patient's blood pressure: Normal blood pressure Blood pressure disposition: Did not require urgent referral Impression Primary Impression: Bronchitis Scribe Attestation The scribe's documentation has been prepared under my direction and personally reviewed by me in its entirety. I confirm that the note above accurately reflects all work, treatment, procedures, and medical decision making performed by me. Departure Information Dispostion Home / Self-Care Prescriptions Famotidine (PEPCID) 20 Mg Tab 20 MG PO BID for 14 Days, #28 TAB Prov: Carlton Hart M.D. 05/23/17 Azithromycin (Azithromycin) 250 Mg Tab 1 TAB PO DAILY for 4 Days, #4 TABS Prov: Carlton Hart M.D. 05/23/17 Prednisone (Prednisone) 20 Mg Tab 3 TAB PO DAILY for 4 Days, #12 TAB FOR 4 DAYS Prov: Carlton Hart M.D. 05/23/17 Referrals RV. Nova MD (PCP) Patient Instructions Bronchitis Acute Dc, My [facility] Additional Instructions Please follow up with your primary care physician tomorrow as scheduled for re- evaluation. Your symptoms are likely due to a bronchitis. Otherwise, your exam, EKG, chest xray, and lab results did not show signs of an emergent condition at this time. Take prednisone and Azithromycin as directed. Pepcid for acid reduction. Return to the emergency department for worsening symptoms as described in the accompanying instructions.
--- NOTE | 2017-05-23 12:18 | DIAGNOSTIC IMAGING REPORT ---
SINGLE VIEW CHEST CLINICAL HISTORY: Atypical chest pain. FINDINGS: An AP, portable, upright chest radiograph is compared to study dated 05/17/2017 and correlated with chest CT dated 05/18/2017. The examination is degraded by portable technique and patient rotation. The cardiomediastinal silhouette is unremarkable. Chronic interstitial thickening is similar to previous. The lungs and pleural spaces are otherwise clear. No pneumothorax is seen. The skeletal structures are osteopenic. The bony thorax is grossly intact. IMPRESSION: No acute cardiopulmonary abnormality. Electronically signed by: Daniel Bello M.D. 05/23/2017 12:17 PM Dictated Date/Time: 05/23/2017 12:15 PM
[2017-05-23 12:46] LABS: BASO % 0.8 %; BASO ABS # 0.04 K/uL (0-0.2); COMPLETE YES; EOS % 3.3 %; HEMATOCRIT 50.1 % (42-52); IG% 0.2 %; LYMPH % 32.3 %; LYMPH ABS # 1.67 K/uL (1.2-3.4); MEAN CELL VOLUME 91.8 fL (80-100); MEAN CORPUSCULAR HEMOGLOBIN 31.1 pg (25-34); MEAN CORPUSCULAR HGB CONC 33.9 g/dl (32-36); MEAN PLATELET VOLUME 10.4 fL (7.4-10.4); NEUT % 52.4 %; PLATELET COUNT 123 K/uL (130-400); RED BLOOD COUNT 5.46 M/uL (4.7-6.1); WHITE BLOOD COUNT 5.17 K/uL (4.8-10.8)
[2017-05-23 13:05] LABS: ALT/SGPT 60 U/L (12-78); BLOOD UREA NITROGEN 26 mg/dl (7-18); BUN/CREATININE RATIO 17.2 (10-20); CALCIUM 9.5 mg/dl (8.5-10.1); CARBON DIOXIDE 23 mmol/L (21-32); CHLORIDE 107 mmol/L (98-107); GLUCOSE 86 mg/dl (70-99); POTASSIUM 4.3 mmol/L (3.5-5.1); SODIUM 141 mmol/L (136-145)
[2017-05-23 13:10] LABS: ALKALINE PHOSPHATASE 65 U/L (45-117); AST/SGOT 35 U/L (15-37)
[2017-05-23] MEDS ORDERED: ALBUT/IPRATROP 3MG/0.5MG NEB 3 ML VIAL INH ONE (14:45)
[2017-05-23] MEDS ORDERED: AZITHROMYCIN 250 MG TAB PO ONE (14:45)
[2017-05-23 14:51] VITALS: PULSE 72; O2SAT 95
[2017-05-23] MEDS ORDERED: PRED20TA PO (17:16)
[2017-05-23] MEDS ORDERED: ZTHM250 PO (17:16)
[2017-05-23] MEDS ORDERED: FAMO20TA9 PO (17:17)
[2017-05-23 17:51] VITALS: BP 120/77; PULSE 71; O2SAT 94
[2017-05-30] MEDS ORDERED: ASCA500 PO (05:06)
[2017-05-30] MEDS ORDERED: CHOL100027 PO (05:06)
[2017-05-30] MEDS ORDERED: FLUT0.15 NAE (05:06)
[2017-05-30] MEDS ORDERED: COEN400C3 PO (05:09)
[2017-05-30] MEDS ORDERED: OMEG10007 PO (05:09)
[2017-05-30] MEDS ORDERED: APIX1TAB3 PO (06:40)
[2017-05-30] MEDS ORDERED: METO25TA56 PO (09:30)
== END 2017-05-23 17:54 | disposition home or self-care (01) ==
LOC: C.EDB 11:17 → C.EDC 17:54
DX: J40 Bronchitis, not specified as acute or chronic (principal); I48.91 Unspecified atrial fibrillation; Z79.01 Long term (current) use of anticoagulants; Z79.82 Long term (current) use of aspirin; Z79.899 Other long term (current) drug therapy; H81.10 Benign paroxysmal vertigo, unspecified ear; E78.5 Hyperlipidemia, unspecified; I10 Essential (primary) hypertension; E07.9 Disorder of thyroid, unspecified; G47.30 Sleep apnea, unspecified

== ENCOUNTER 2017-05-30 11:52 | Emergency (ER) | payer OTHER ==
[~2017-05-30] VITALS: Ht 160 cm; Wt 81.8 kg
[~2017-05-30 11:52] MED LIST changes: +APIX1TAB3 PO; +ASCA500 PO; +CHOL100027 PO; +COEN400C3 PO; +FAMO20TA9 PO; +FLUT0.15 NAE; +METO25TA56 PO; +OMEG10007 PO; +ZTHM250 PO
[2017-05-30 12:10] VITALS: Ht 160 cm; Wt 81.8 kg
[2017-05-30] MEDS ORDERED: [UNRECOGNIZED DRUG - OTHER] (12:20)
[2017-05-30] MEDS ORDERED: ALBUT/IPRATROP 3MG/0.5MG NEB 3 ML VIAL INH STA (12:24)
--- NOTE | 2017-05-30 12:35 | EMERGENCY ROOM VISIT NOTE ---
History Report prepared by Meg: Tami Cox Under the Supervision of: Dr. Delvin Condon D.O. First contact with patient: 12:19 Chief Complaint: SHORTNESS OF BREATH Stated Complaint: SOB Nursing Triage Summary: pt c/o sob started at 0400 this am resolved then started about an hour ago. dx with bronchitis told to return if sx worsen History of Present Illness The patient is a 76 year old male who presents to the Emergency Room with complaints of persistent shortness of breath over the past four days. The patient states that he was evaluated last week in the emergency department and diagnosed with bronchitis. He states that for the past four days he has been short of breath, but states that this episode began around 0400. The patient states that he was at his PCP's office this morning and became diaphoretic and told to come to the emergency department for further work up. He states that he has been coughing, noting that he brings up some sputum. The patient states that he did a four day course of Azithromycin and Prednisone. He reports a subjective fever. The patient denies any sick contacts. He denies any swelling or pain in his lower extremities. The patient states that he is a nonsmoker. He denies any history of COPD or emphysema. The patient states that he has been using inhalers. Source of History: patient Onset: past four days Position: other (global) Quality: other (shortness of breath) Timing: other (persistent) Associated Symptoms: + fevers, + diaphoresis, + cough Review of Systems See HPI for pertinent positives & negatives. A total of 10 systems reviewed and were otherwise negative. Past Medical & Surgical Medical Problems: (1) Benign paroxysmal positional vertigo (2) Bronchitis Nos (3) Chronic Sinusitis Nos (4) Elevated troponin (5) Endocrine Disorder Nos (6) Hyperlipidemia Nec/Nos (7) Hypertension Nos (8) Lipoprotein Deficiencies (9) Rapid atrial fibrillation (10) Shortness of breath (11) Tachycardia Nos (12) Thyroid disorder (13) Unspecified Sleep Apnea Family History FHx: heart disease Social History Smoking Status: Never Smoker Alcohol Use: none Drug Use: none Marital Status: single Housing Status: lives with significant other Occupation Status: retired Current/Historical Medications Scheduled Apixaban (Eliquis), 5 MG PO BID Ascorbic Acid (Vitamin C), 500 MG PO DAILY Cholecalciferol (Vitamin D 1000 Unit), 1,000 INTER.UNIT PO DAILY Coenzyme Q10 (Ubidecarenone) (Co Q-10 Maximum Strength), 1 CAP PO TID Fish Oil (Schurz-3), 2 CAP PO BID Fluticasone Propionate (Nasal) (Flonase Allergy Relief), 1 SPRAY ANITA DAILY Metoprolol Tartrate (Lopressor) (Lopressor), 12.5 MG PO BID Scheduled PRN Albuterol Hfa (Ventolin Hfa), 2 PUFFS INH Q4-6 PRN for Wheezing Miscellaneous Medications [digestive guard] Allergies Coded Allergies: Theophylline (Verified Adverse Reaction, Intermediate, HIGH BP,TACHYCARDIA , 05/30/17) Physical Exam Vital Signs Date Time Temp Pulse Resp B/P (MAP) Pulse Ox O2 Delivery O2 Flow Rate FiO2 05/30/17 13:34 62 20 125/76 97 Room Air 05/30/17 13:33 98 Room Air 05/30/17 12:10 37.0 68 18 110/75 97 Room Air Physical Exam GENERAL: Patient is awake, alert, and in no acute distress. Patient is resting comfortably and showing no signs of anxiety EYES: The conjunctivae are clear. The pupils are round and reactive. EARS, NOSE, MOUTH AND THROAT: The nose is without any evidence of any deformity. Mucous membranes are moist tongue is midline NECK: The neck is nontender and supple. RESPIRATORY: Breath sounds are diminished throughout with scattered rhonchi, rales at both bases CARDIOVASCULAR: Regular rate and rhythm noted there no murmurs rubs or gallops normal S1 normal S2 GASTROINTESTINAL: The abdomen is soft. Bowel sounds are present in all quadrants. Abdomen is nontender MUSCULOSKELETAL/EXTREMITIES: There is no evidence of gross deformity full range of motion is noted in the hips and shoulders SKIN: There is no obvious evidence of any rash. There are no petechiae, pallor or cyanosis noted. NEUROLOGIC: Patient is awake alert and oriented x3 strength is symmetric patellar reflexes are 2+ bilaterally Medical Decision & Procedures ER Provider Diagnostic Interpretation: X-ray results as stated below per interpretation by me and the radiologist. CHEST 2 VIEWS ROUTINE CLINICAL HISTORY: Respiratory distress. Dyspnea. COMPARISON STUDY: Chest CT May 18, 2017 and chest radiograph May 23, 2017 per FINDINGS: Lung volumes are normal. No pneumothorax or pleural effusion is present. Opacity along the left heart border reflects epicardial fat pad. There is no evidence of pulmonary edema. There is no consolidation to suggest pneumonia. The appearance of the chest is unchanged. IMPRESSION: No acute cardiopulmonary findings. Electronically signed by: Efren Lazo M.D. 05/30/2017 1:27 PM Dictated Date/Time: 05/30/2017 1:26 PM Laboratory Results 05/30/17 12:30 Red Blood Count 5.45, Mean Corpuscular Volume 89.9, Mean Corpuscular Hemoglobin 30.8, Mean Corpuscular Hemoglobin Concent 34.3, Mean Platelet Volume 11.3, Neutrophils (%) (Auto) 52.4, Lymphocytes (%) (Auto) 34.9, Monocytes (%) (Auto) 9.3, Eosinophils (%) (Auto) 3.0, Basophils (%) (Auto) 0.2, Neutrophils # (Auto) 3.48, Lymphocytes # (Auto) 2.32, Monocytes # (Auto) 0.62, Eosinophils # (Auto) 0.20, Basophils # (Auto) 0.01 05/30/17 12:30 Test 05/30/17 12:30 05/30/17 13:40 White Blood Count 6.64 K/uL (4.8-10.8) Red Blood Count 5.45 M/uL (4.7-6.1) Hemoglobin 16.8 g/dL (14.0-18.0) Hematocrit 49.0 % (42-52) Mean Corpuscular Volume 89.9 fL (80-100) Mean Corpuscular Hemoglobin 30.8 pg (25-34) Mean Corpuscular Hemoglobin Concent 34.3 g/dl (32-36) Platelet Count 157 K/uL (130-400) Mean Platelet Volume 11.3 fL (7.4-10.4) Neutrophils (%) (Auto) 52.4 % Lymphocytes (%) (Auto) 34.9 % Monocytes (%) (Auto) 9.3 % Eosinophils (%) (Auto) 3.0 % Basophils (%) (Auto) 0.2 % Neutrophils # (Auto) 3.48 K/uL (1.4-6.5) Lymphocytes # (Auto) 2.32 K/uL (1.2-3.4) Monocytes # (Auto) 0.62 K/uL (0.11-0.59) Eosinophils # (Auto) 0.20 K/uL (0-0.5) Basophils # (Auto) 0.01 K/uL (0-0.2) RDW Standard Deviation 45.7 fL (36.4-46.3) RDW Coefficient of Variation 13.9 % (11.5-14.5) Immature Granulocyte % (Auto) 0.2 % Immature Granulocyte # (Auto) 0.01 K/uL (0.00-0.02) Prothrombin Time 11.3 SECONDS (9.0-12.0) Prothromb Time International Ratio 1.1 (0.9-1.1) Activated Partial Thromboplast Time 26.4 SECONDS (21.0-31.0) Partial Thromboplastin Ratio 1.0 Anion Gap 7.0 mmol/L (3-11) Est Creatinine Clear Calc Drug Dose 43.8 ml/min Estimated GFR () 57.0 Estimated GFR (Non- 49.1 BUN/Creatinine Ratio 19.0 (10-20) Calcium Level 9.1 mg/dl (8.5-10.1) Total Bilirubin 0.7 mg/dl (0.2-1) Aspartate Amino Transf (AST/SGOT) 29 U/L (15-37) Alanine Aminotransferase (ALT/SGPT) 62 U/L (12-78) Alkaline Phosphatase 61 U/L (45-117) Total Creatine Kinase 114 U/L (39-308) Creatine Kinase MB 2.3 ng/ml (0.5-3.6) Creatine Kinase MB Ratio 2.0 (0-3.0) Troponin I < 0.015 ng/ml (0-0.045) Pro-B-Type Natriuretic Peptide 154 pg/ml (0-900) Total Protein 6.8 gm/dl (6.4-8.2) Albumin 3.6 gm/dl (3.4-5.0) Globulin 3.2 gm/dl (2.5-4.0) Albumin/Globulin Ratio 1.1 (0.9-2) Urine Color YELLOW Urine Appearance CLEAR (CLEAR) Urine pH 5.0 (4.5-7.5) Urine Specific [place] 1.027 (1.000-1.030) Urine Protein NEG (NEG) Urine Glucose (UA) NEG (NEG) Urine Ketones 1+ (NEG) Urine Occult Blood NEG (NEG) Urine Nitrite NEG (NEG) Urine Bilirubin NEG (NEG) Urine Urobilinogen NEG (NEG) Urine Leukocyte Esterase NEG (NEG) Laboratory results per my review. Medications Administered Medications (Trade) Dose Ordered Sig/David Route Start Time Stop Time Status Last Admin Dose Admin Albuterol/ Ipratropium (Duoneb) 3 ml NOW STAT INH 05/30/17 12:24 05/30/17 12:25 DC 05/30/17 12:33 3 ML ECG Indication: SOB/dyspnea Rate (beats per minute): 57 Rhythm: sinus bradycardia Findings: RBBB, no ectopy Comparison ECG Date: 05/23/17 Change: no significant change ED Course 1221: The patient was evaluated in room B4B. A complete history and physical examination were performed. 1224: Ordered DuoNeb 3 ml INH. 1400: I reevaluated the patient and he is resting comfortably. I discussed the exam findings with him and I discussed the treatment plan. He verbalized complete understanding and agreement. He is ready to go home. Medical Decision Differential diagnosis: Etiologies such as infections, reactive airway disease, pneumonia, pneumothorax , COPD, CHF, cardiac ischemia, pulmonary embolism, musculoskeletal, gastrointestinal, as well as others were entertained. Medication Reconcilliation Current Medication List: was personally reviewed by me Blood Pressure Screening Patient's blood pressure: Normal blood pressure Blood pressure disposition: Did not require urgent referral Impression Primary Impression: Bronchitis Scribe Attestation The scribe's documentation has been prepared under my direction and personally reviewed by me in its entirety. I confirm that the note above accurately reflects all work, treatment, procedures, and medical decision making performed by me. Departure Information Dispostion Home / Self-Care Referrals No Doctor, Assigned (PCP) RV. Nova MD Forms HOME CARE DOCUMENTATION FORM, IMPORTANT VISIT INFORMATION Patient Instructions Bronchitis Acute, My [facility] Additional Instructions Continue all medications as prescribed. Follow-up with your family tomorrow as scheduled. Rest and avoid any strenuous activity. Discussed the possibility with your family doctor that you may require further follow-up with a wheel and axle inspector to evaluate the cause of her cough.
[2017-05-30 12:54] LABS: BASO % 0.2 %; BASO ABS # 0.01 K/uL (0-0.2); COMPLETE YES; IG% 0.2 %; LYMPH % 34.9 %; LYMPH ABS # 2.32 K/uL (1.2-3.4); MEAN CELL VOLUME 89.9 fL (80-100); MEAN CORPUSCULAR HEMOGLOBIN 30.8 pg (25-34); MEAN CORPUSCULAR HGB CONC 34.3 g/dl (32-36); MEAN PLATELET VOLUME 11.3 fL (7.4-10.4); MONO % 9.3 %; NEUT % 52.4 %; PLATELET COUNT 157 K/uL (130-400); RED BLOOD COUNT 5.45 M/uL (4.7-6.1); WHITE BLOOD COUNT 6.64 K/uL (4.8-10.8)
[2017-05-30 12:59] LABS: INR 1.1 (0.9-1.1); PROTHROMBIN TIME (PATIENT) 11.3 SECONDS (9.0-12.0)
[2017-05-30 13:09] LABS: ALT/SGPT 62 U/L (12-78); BLOOD UREA NITROGEN 27 mg/dl (7-18); CALCIUM 9.1 mg/dl (8.5-10.1); CARBON DIOXIDE 26 mmol/L (21-32); CHLORIDE 107 mmol/L (98-107); GLUCOSE 99 mg/dl (70-99); POTASSIUM 3.9 mmol/L (3.5-5.1); SODIUM 140 mmol/L (136-145)
[2017-05-30 13:15] LABS: ALB/GLOB RATIO 1.1 (0.9-2); ALKALINE PHOSPHATASE 61 U/L (45-117); AST/SGOT 29 U/L (15-37)
--- NOTE | 2017-05-30 13:28 | DIAGNOSTIC IMAGING REPORT ---
CHEST 2 VIEWS ROUTINE CLINICAL HISTORY: Respiratory distress. Dyspnea. COMPARISON STUDY: Chest CT May 18, 2017 and chest radiograph May 23, 2017 per FINDINGS: Lung volumes are normal. No pneumothorax or pleural effusion is present. Opacity along the left heart border reflects epicardial fat pad. There is no evidence of pulmonary edema. There is no consolidation to suggest pneumonia. The appearance of the chest is unchanged. IMPRESSION: No acute cardiopulmonary findings. Electronically signed by: Efren Lazo M.D. 05/30/2017 1:27 PM Dictated Date/Time: 05/30/2017 1:26 PM
[2017-05-30 13:33] VITALS: O2SAT 98
[2017-05-30 13:58] LABS: URINE APPEARANCE CLEAR (CLEAR); URINE BILIRUBIN NEG (NEG); URINE COLOR YELLOW; URINE NITRITE NEG (NEG); URINE SPECIFIC GRAVITY 1.027 (1.000-1.030); UROBILINOGEN NEG (NEG)
[2017-05-30 13:59] LABS: MANUAL MICROSCOPIC REQUIRED? NO; REVIEW REQ? NO
[2017-05-30 14:54] VITALS: BP 135/85; PULSE 64; TEMP 37; O2SAT 92
== END 2017-05-30 14:55 | disposition home or self-care (01) ==
LOC: C.EDB 11:54
DX: J40 Bronchitis, not specified as acute or chronic (principal); H81.10 Benign paroxysmal vertigo, unspecified ear; E78.5 Hyperlipidemia, unspecified; I10 Essential (primary) hypertension; I48.91 Unspecified atrial fibrillation; G47.30 Sleep apnea, unspecified; E07.9 Disorder of thyroid, unspecified; Z79.01 Long term (current) use of anticoagulants; Z79.899 Other long term (current) drug therapy

== ENCOUNTER 2019-07-27 00:20 | Observation (INO) ==
[2019-07-27] MEDS ORDERED: METOPROLOL TARTRATE 1 MG/ML VIAL IV STA (00:31)
[2019-07-27 00:53] LABS: Basophils # (auto) 0.04 K/uL (0-0.2); Basophils % (auto) 0.7 %; Eosinophils # (auto) 0.27 K/uL (0-0.5); Eosinophils % (auto) 4.5 %; Hematocrit (blood only) 43.1 % (42-52); Hemoglobin 14.9 g/dL (14.0-18.0); Immature Granulocytes # (auto) 0.01 K/uL (0.00-0.02); Immature Granulocytes % (auto) 0.2 %; Lymphocytes # (auto) 2.28 K/uL (1.2-3.4); Lymphocytes % (auto) 37.8 %; Mean Corpuscular Hemoglobin 31.6 pg (25-34); Mean Corpuscular Hgb Conc 34.6 g/dL (32-36); Mean Corpuscular Volume 91.5 fL (80-100); Mean Platelet Volume 10.1 fL (7.4-10.4); Monocytes # (auto) 0.51 K/uL (0.11-0.59); Monocytes % (auto) 8.5 %; Neutrophils # (auto) 2.92 K/uL (1.4-6.5); Neutrophils % (auto) 48.3 %; Platelet Count 137 K/uL (130-400); RDW Coefficient of Variation 15.3 % (11.5-14.5); RDW Standard Deviation 51.7 fL (36.4-46.3); Red Blood Count 4.71 M/uL (4.7-6.1); White Blood Count 6.03 K/uL (4.8-10.8)
[2019-07-27] MEDS ORDERED: SODIUM CHLORIDE 0.9% 1000ML 250 ML IV ONE ×2 (01:00→02:14)
[2019-07-27 01:03] LABS: Partial Thromboplastin Ratio 0.9; Partial Thromboplastin Time 24.5 Seconds (21.0-31.0); Prothrombin Time 10.3 Seconds (9.0-12.0)
[2019-07-27] MEDS: METOPROLOL TARTRATE 1 MG/ML VIAL IV PRN ×2 (01:17→01:41)
[2019-07-27 01:41] LABS: Alanine Aminotransferase 34 U/L (12-78); Albumin Globulin Ratio 1.1 (0.9-2); Albumin Level 3.6 gm/dl (3.4-5.0); Alkaline Phosphatase 82 U/L (45-117); Aspartate Aminotransferase 24 U/L (15-37); BUN Creatinine Ratio 16.6 (10-20); Bilirubin,Total 0.5 mg/dl (0.2-1); Blood Urea Nitrogen 22 mg/dl (7-18); Calcium 8.6 mg/dl (8.5-10.1); Carbon Dioxide 23 mmol/L (21-32); Chloride 111 mmol/L (98-107); Creatinine Clr Calc Pharmacy 42.8 ml/min; Est GFR (African American) 58.8; Est GFR (Non-African American) 50.7; Globulin 3.3 gm/dl (2.5-4.0); Glucose 108 mg/dl (70-99); Magnesium 2.2 mg/dl (1.8-2.4); Potassium 3.9 mmol/L (3.5-5.1); Sodium 142 mmol/L (136-145); Total Protein 6.9 gm/dl (6.4-8.2); Troponin I < 0.015 ng/ml (0-0.045)
[2019-07-27] MEDS ORDERED: dilTIAZem HCl 5 MG/ML 5 ML VIAL IV STA (02:14)
[2019-07-27] MEDS ORDERED: NITROGLYCERIN SL 0.4 MG/TAB TAB SL PRN (04:30)
--- NOTE | 2019-07-27 04:48 | History & Physical Report ---
Date of Service July 27, 2019 Assessment & Plan (1) Rapid atrial fibrillation: Patient is a 79yo M PMH afib, CAD s/p stent placement Mar 2019, thyroid dysfunction, HLD, HTN, admitted for Afib with RVR Afib with RVR -Return to NSR in the ER. -Repeat ECG with sinus chris and 1st degree AV block -Admit to tele -Prev concern for SSS, was to est with cardiology locally--will consult here; appreciate recs -PRN lopressor -Trend troponins -Repeat echo -Cont home toprol XL 25 daily -Mag >2, will replete for K>4. -Cont DAPT -As pt returned to regular rhythm, will defer heparin infusion -Pt prev on eliquis, but was non compliant; would discuss further. [address] s core of 4. CAD s/p L circumflex stenting March 2019 -Cont DAPT -trend troponins -cardiology consult -Pt allegedly has nuc stress on Aug 02 at [facility] Creatinine elevation -Pt has declined outpatient f/u for this -IVF; cont to monitor HLD -Resume rosuvastatin -Stress importance of compliance HTN -Resume home toprol Thyroid disorder -TSH WNL on admission -Routine outpatient f/u Code: full DVTP: defer to day team; has DAPT on board Dispo: admit to tele (2) Thyroid disorder: (3) Presence of stent in left circumflex coronary artery: (4) CAD (coronary artery disease): (5) Creatinine elevation: (6) Hyperlipidemia: (7) Hypertension: History of Present Illness Chief Complaint: Palpitations Primary Care Provider: Law Emerson MD Patient is a 79yo M PMH afib, CAD s/p stent placement Mar 2019, thyroid dysfunction, HLD, HTN, who presented to the ER with concerns of elevated HR. He states that he woke up from sleep at 1030pm with a racing heart. He denied dyspnea, CP, lightheadedness, diaphoresis. He reports he did eat 2 burgers from [employer] and was doing some heavy lifting last evening, citing over-exertion as the cause of this episode. In the ER, he was given 2L IVF, lopressor boluses x 2, and 10 IV diltiazem, when he converted to sinus bradycardia with 1st degree AV block. Labwork revealed a normal CBC, relatively normal BMP, Mag 2.2, LFTs nl, Troponin negative, TSH nl. Of note, on chart review patient diagnosed with Afib in 2013, and had been placed on metoprolol bid, eliquis 5 bid, flecainide 50 bid, but stopped all of these meds on his own as he did not like taking medications. This past summer, he had an episode of indigestion which was found to be an HI. He had a stent placed in L circumflex art, and was started on ASA, toprol succinate 25 daily, brillinta, and rosuvastatin 40. He reports he is compliant with his meds aside from rosuvastatin, which he stopped on his own. Repeat cath in May 2019 revealed <50% blockages in other coronary arteries. Prior records indicate concern for SSS as his HR frequently would flip from 40 to 140. Plan was to establish with cardiology locally. This has not occurred yet. Patient states he has a nuclear stress test scheduled for Aug 02 in [place]. Allergies Allergy/AdvReac Type Severity Reaction Status Date / Time theophylline AdvReac Intermediate HIGH Verified 07/27/19 00:39 BP,TACHYCARDIA Home Medications Home Medications Medication Instructions Recorded Confirmed Type coenzyme Q10 300 mg capsule 300 mg PO DAILY 06/23/19 07/27/19 History nitroglycerin 0.4 mg sublingual 0.4 mg SL Q5M PRN 06/23/19 07/27/19 History tablet rosuvastatin 40 mg tablet 40 mg PO DAILY 06/23/19 07/27/19 History metoprolol succinate 25 mg 25 mg PO DAILY #90 tab 06/25/19 07/27/19 Rx tablet,extended release 24 hr ticagrelor 90 mg tablet 90 mg PO BID #180 tab 06/25/19 07/27/19 Rx aspirin 81 mg PO DAILY 07/27/19 07/27/19 History Past Med/Surg History Medical History Abnormal finding on thyroid function test (Acute) AF (paroxysmal atrial fibrillation) (Acute) Afib (Acute 12/18/13) Anxiety disorder due to medical condition (Resolved) Bradycardia (Acute) CAD (coronary artery disease) Headache (Acute) Hearing loss (Acute) Hyperlipidemia (Acute) Hypertension (Acute) Obstructive sleep apnea (Acute) Presence of stent in left circumflex coronary artery Shortness of breath on exertion (Acute) Sleep disturbance (Acute) Thrombocytopenia (Acute) Thyroid disorder (Chronic) Surgical History S/P appendectomy S/P knee surgery S/P tonsillectomy Family History Sister Hypertension Hypothyroidism Mother Leukemia Father Myocardial infarction Uncle Myocardial infarction Social History Preferred Language: Greek Communication Ability: Effective Visual Impairment: No Limitations Hearing 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: Normal 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 Palpitations on presentation no longer present. Physical Exam Constitutional: WD/WN, vitals as above Eyes: PERRL, conjunctivae normal, anicteric sclerae ENMT: external ear and nose normal, oropharynx normal Neck: normal visual inspection Respiratory: normal respiratory effort, lungs clear to auscultation Cardiovascular: RRR, no murmur, no edema Gastrointestinal (Abdomen): normal bowel sounds, soft, nontender, no hepatosplenomegaly Musculoskeletal: no cyanosis or clubbing, extremities motor strength 5/5 Skin: no rashes, warm and dry Neurologic: PERRL, EOMI, accommodation nl, no face palsy, no dysarthria Psychiatric: A+Ox3, euthymic affect Results & Data Vital Signs (Past 12 Hours) Vital Signs Temp Pulse Pulse Resp BP BP Pulse Ox 07/27/19 04:15 62 16 112/74 96 07/27/19 02:45 67 20 108/59 L 94 07/27/19 02:30 79 20 102/70 94 07/27/19 02:15 124 H 20 109/78 96 07/27/19 01:19 120 H 20 106/75 97 07/27/19 01:17 127 H 106/75 07/27/19 00:48 124 H 20 94/68 L 95 07/27/19 00:23 97.7 F 132 H 20 127/92 96 Laboratory Results 07/27/19 07/27/19 07/27/19 Range/Units 00:35 00:35 00:35 WBC 6.03 (4.8-10.8) K/uL RBC 4.71 (4.7-6.1) M/uL Hgb 14.9 (14.0-18.0) g/dL Hct 43.1 (42-52) % MCV 91.5 (80-100) fL MCH 31.6 (25-34) pg MCHC 34.6 (32-36) g/dL RDW Std Deviation 51.7 H (36.4-46.3) fL RDW Coeff of Meche 15.3 H (11.5-14.5) % Plt Count 137 (130-400) K/uL MPV 10.1 (7.4-10.4) fL Immature Gran % (Auto) 0.2 % Neut % (Auto) 48.3 % Lymph % (Auto) 37.8 % [place] % (Auto) 8.5 % Eos % (Auto) 4.5 % Baso % (Auto) 0.7 % Immature Gran # (Auto) 0.01 (0.00-0.02) K/uL Neut # (Auto) 2.92 (1.4-6.5) K/uL Lymph # (Auto) 2.28 (1.2-3.4) K/uL [place] # (Auto) 0.51 (0.11-0.59) K/uL Eos # (Auto) 0.27 (0-0.5) K/uL Baso # (Auto) 0.04 (0-0.2) K/uL PT 10.3 (9.0-12.0) Seconds INR 1.0 (0.9-1.1) APTT 24.5 (21.0-31.0) Seconds PTT Ratio 0.9 Sodium 142 (136-145) mmol/L Potassium 3.9 (3.5-5.1) mmol/L Chloride 111 H (98-107) mmol/L Carbon Dioxide 23 (21-32) mmol/L Anion Gap 8.0 (3-11) BUN 22 H (7-18) mg/dl Creatinine 1.34 (0.6-1.4) mg/dl Est Cr Clr Drug Dosing 42.8 ml/min Est GFR ( Amer) 58.8 Est GFR (Non-Af Amer) 50.7 BUN/Creatinine Ratio 16.6 (10-20) Glucose 108 H (70-99) mg/dl Calcium 8.6 (8.5-10.1) mg/dl Magnesium 2.2 (1.8-2.4) mg/dl Total Bilirubin 0.5 (0.2-1) mg/dl AST 24 (15-37) U/L ALT 34 (12-78) U/L Alkaline Phosphatase 82 (45-117) U/L Troponin I < 0.015 (0-0.045) ng/ml Total Protein 6.9 (6.4-8.2) gm/dl Albumin 3.6 (3.4-5.0) gm/dl Globulin 3.3 (2.5-4.0) gm/dl Albumin/Globulin Ratio 1.1 (0.9-2) TSH 4.210 (0.300-4.500) uIu/ml Specimen Hemolysis ECG Indication: palpitations Rate (beats per minute): 53 Rhythm: sinus bradycardia Findings: + RBBB and + left axis deviation Code Status & VTE Plan Code Status Full Supervising Physician Co-Signing Physician Notes Patient was seen and examined by me personally. I reviewed the chart, the orders and discussed the case in detail with Dr. Natalia Brush MD . I read this H&P and agree with its contents to entirety. Resident Activity Tracking Resident Involvement: Resident Care Provided Care Provided: Adult Hospital Medicine
[2019-07-27] MEDS ORDERED: POLYETHYLENE (MIRALAX) 17 GM PACK PO PRN (05:37)
[2019-07-27] MEDS ORDERED: ONDANSETRON INJ 2 MG/ML 2 ML VIAL IV PRN (05:37)
[2019-07-27] MEDS ORDERED: MAGNESIUM HYDROXIDE SUSP 30 ML UDC PO PRN (05:37)
[2019-07-27] MEDS ORDERED: POTASSIUM CHLORIDE 10 MEQ TABCR PO STA (05:37)
[2019-07-27] MEDS ORDERED: ALUMINUM/MAGNESIUM SUSP 30 ML UDC PO PRN (05:37)
[2019-07-27] MEDS ORDERED: ACETAMINOPHEN 325 MG TAB PO PRN (05:37)
[2019-07-27] MEDS: SODIUM CHLORIDE 0.9% 1000ML 1,000 ML IV SCH ×2 (06:06→14:41)
--- NOTE | 2019-07-27 06:33 | XRay Report ---
XR chest 1V portable CLINICAL HISTORY: tachycardia COMPARISON STUDY: May 23, 2017 FINDINGS: The cardiac and mediastinal contours are normal. There is no evidence of focal pulmonary co nsolidation. There is no evidence of failure. No pleural effusions are visualized.[There is minor lef t basilar atelectasis/scarring. IMPRESSION: No active disease in the chest. Electronically signed by: Primo Cordero M.D. 07/27/2019 6:32 AM
--- NOTE | 2019-07-27 06:42 | Billing Data ---
Coding Level of Care Code 67561 OBS Care - Level 2
[2019-07-27] MEDS ORDERED: ASPIRIN 81 MG CHEW PO SCH (09:00)
[2019-07-27] MEDS ORDERED: TICAGRELOR 90 MG TAB PO SCH (09:00)
[2019-07-27] MEDS ORDERED: ROSUVASTATIN CALCIUM 20 MG TAB PO SCH (09:00)
[2019-07-27] MEDS ORDERED: METOPROLOL SUCC 25MG EXT REL TAB PO SCH (09:00)
--- NOTE | 2019-07-27 10:48 | Cardiology Consultation ---
Date of Consultation July 27, 2019 Assessment & Plan (1) Paroxysmal atrial fibrillation: Afib RVR on admission, converting to NSR overnight. Continue metoprolol 25 mg daily. Unable to titrate dose given resting bradycardia. No significant pauses or symptomatic bradycardia [id number] score of 4 Likely would need anticoagulation, however given recent stent on 04/17/19 also needs antiplatelet therapy. Defer to Dr. Choudhary's note for guidelines and recommendations in regards to antiplatelet and antithrombotic therapy. (2) Presence of stent in left circumflex coronary artery: No anginal symptoms during this admission Cardiac enxymaex negative x2 No acute EKG changes Continue home medications He did report chest pain several weeks ago and is to undergo nuclear stress testing as outpatinet at [facility] with Dr. Arauz. Upon review of systems today, benea denies recent or recurrent chest pain. (3) Hypertension: Continue home medications Supervising Physician Co-Signing Physician Notes Cardiology Attending Note: I personally performed a history and physical examination on Mr Devries. Agree with Duyen Broderick PA-C's findings, assessment and plan with additions as noted below. S: Patient feeling well. Presented with subjective complaint of feeling elevated heart rate, not chest pain. This was different from his recent anginal symptoms prompting the recent cardiac cath at [facility]. Was found to have AF, RVR, converted to SR after IV diltiazem and metoprolol boluses, remains in SR. Exam: CV: RRR, no murmurs rubs or gallops, No edema. Pulm: CTAB Neuro: no focal deficits Data: Echo , normal LA size and volume. Normal LV wall motion and LVEF. No significant valve disease Impression: 1. PAF, first documented episode since approximately 2013. 2. Coronary heart disease, NSTEMI 03/2019, SABINA to L Cx, has non obstructive residual multivessel CAD. 3. HTN 4. Dyslipidemia Discussion / Recommendations: Patient with [id number] score of 4 for risk factors of age > 75 (2 points), HTN, and vascular disease. This predicts a 4% annual stroke risk. Antithrombotic therapy for stroke prevention therefore indicated. Pt however is on dual antiplatelet therapy with ASA and Brilinta. Would have increased bleeding risk with triple therapy. Most recent guidelines recommend consideration of dual therapy in this situation with clopidogrel and and direct oral anticoagulant such as Eliquis. I had a discussion about this with the patient. After further discussion he expressed his preference to keep medications as they are without change. I think this is a reasonable option given that he had a single 6 hour episode of AF. Would consider a follow up 2 week monitor to assess occult AF burden as outpatient, as increased AF burden may sway things toward adding Eliquis. In terms of rhythm control, would continue current dose of metoprolol. HR relatively slow in SR therefore not enough room to up titrate. I do not think his SR in the 50-60 bpm range is consistent with tachy chris syndrome and would recommend ongoing observation and reassessment as outpt prior to consideration of antiarrhythmic medication or other. Disposition: Pt eager for discharge , and I believe he may be discharged. In terms of cardiology follow up, he tells me he has an upcoming visit with [facility] cardiology which he plans to cancel. I offered him follow up with Cheryl Brannon, , Dr Allison, or other provider, and he also declines this option. He would like to follow up with cardiology at [facility], I recommend he calls and schedules a follow up visit for a 1-2 week interval, he has the phone number. Per patient's request, I did reach out to Dr Arauz of [facility] cardiology who had recently performed the patient's cardiac catheterization to coordinate care. I left a message, but I have not heard back yet. I will update him when I hear back. History of Present Illness Reason for Consultation: Afib RVR; CAD Requesting Physician: Dr. Shen Attending Physician: Dr. Choudhary History of Present Illness Patient is a 79-year-old male known to [facility] cardiology services having seen Dr. Allison as a new patient in May 2019 following recent non-ST elevation [place] where he received 1 drug-eluting stent to the left circumflex on 04/17/[address] [facility] while he was [place]ing [place]. Per cath records from [place], patient also had residual 80% stenosis in the proximal LAD and 70% stenosis in the RCA. Future coronary intervention was to be considered. At the time of his follow-up appointment in May, with Dr. Allison, patient reported intermittent chest tightness and was sent for repeat cardiac catheterization at [facility] with Dr. Arauz on 06/14/19. Cardiac catheterization demonstrated 50% stenosis at the proximal RCA with FFR measurements of 0.93. 50% stenosis of the mid LAD at the trifurcation of 2 diagonal arteries, FFR across that lesion was 0.88. FFR across the D2 was also greater than 0.9 and not significant. There was 50% stenosis of the ostial large diagonal 1. FFR across that lesion was 0.83. The prior stent in left circumflex was patent. No significant obstructive coronary artery disease was identified and ongoing medical management was recommended at that time. Per chart review, patient called Dr. Arauz approximately 2 weeks after cardiac catheterization with complaints of recurrent chest discomfort. He was scheduled for a nuclear stress test in [place] which is arranged for 08/02/2019. Patient has been taking aspirin, Brilinta, statin and metoprolol since hospital discharge. He reports compliance with medications. Patient reports he was in usual state of health last evening when he ate a late dinner and carried heavy bags up the steps when he developed sudden onset tachycardia. Symptoms did not resolve quickly and he came to the emergency room for evaluation where he was found to be in A. fib RVR. He successfully converted to normal sinus rhythm with several doses of IV diltiazem and IV metoprolol. Cardiac enzymes unremarkable. No acute ischemic changes on EKG is noted with findings of right bundle branch block. He denied recurrent chest pain with A. fib RVR. He does report a remote history of atrial fibrillation dating back to 2013. He reports he used to be on metoprolol, flecainide and Eliquis. He stopped these medical therapies previously in 2016 on his own after making diet changes with a rn correctional. At time of consult patient reports feeling well. No recurrent sense of palpitations or tachypalpitations. No recent chest pain or unusual shortness of breath. No dizziness, syncope or near syncope. No recent illness, fever cough or chills. No orthopnea, PND, lower extremity edema. Allergies Allergy/AdvReac Type Severity Reaction Status Date / Time theophylline AdvReac Intermediate HIGH Verified 07/27/19 00:39 BP,TACHYCARDIA Home Medications Home Medications Medication Instructions Recorded Confirmed Type coenzyme Q10 300 mg capsule 300 mg PO DAILY 06/23/19 07/27/19 History nitroglycerin 0.4 mg sublingual 0.4 mg SL Q5M PRN 06/23/19 07/27/19 History tablet rosuvastatin 40 mg tablet 40 mg PO DAILY 06/23/19 07/27/19 History metoprolol succinate 25 mg 25 mg PO DAILY #90 tab 06/25/19 07/27/19 Rx tablet,extended release 24 hr ticagrelor 90 mg tablet 90 mg PO BID #180 tab 06/25/19 07/27/19 Rx aspirin 81 mg PO DAILY 07/27/19 07/27/19 History Patient History Medical History Abnormal finding on thyroid function test (Acute) AF (paroxysmal atrial fibrillation) (Acute) Afib (Acute 12/18/13) Anxiety disorder due to medical condition (Resolved) Bradycardia (Acute) CAD (coronary artery disease) Headache (Acute) Hearing loss (Acute) Hyperlipidemia (Acute) Hypertension (Acute) Obstructive sleep apnea (Acute) Presence of stent in left circumflex coronary artery Shortness of breath on exertion (Acute) Sleep disturbance (Acute) Thrombocytopenia (Acute) Thyroid disorder (Chronic) Surgical History S/P appendectomy S/P knee surgery S/P tonsillectomy Family History Sister Hypertension Hypothyroidism Mother Leukemia Father Myocardial infarction Uncle Myocardial infarction Social History Preferred Language: Peruvian Communication Ability: Effective Visual Impairment: No Limitations Hearing Ability: Normal 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 Required: No Beliefs That Will Affect Care: None marital status: Single Current Living Situation: Alone current occupational status: retired Other Information That Helps Us Care for You: No Feels Safe at Home: Yes Safety Concerns: Feels Safe At This Time Smoking Status: Never smoker Second Hand Exposure: No ; Hx Alcohol Use: No Hx Substance Use: No Childhood Exposure to Second-Hand Smoke: No Seatbelt Use: always Review of Systems Review of Systems: All systems reviewed & are unremarkable except as noted in HPI & below Physical Exam Constitutional: WD/WN, vitals as above well developed; no acute distress Neck: trachea midline, no thyromegaly normal visual inspection Respiratory: normal respiratory effort, lungs clear to auscultation Cardiovascular: RRR, no murmur, no edema Vessels: no JVD Gastrointestinal (Abdomen): normal bowel sounds, soft, nontender, no hepatosplenomegaly Musculoskeletal: no cyanosis or clubbing, extremities motor strength 5/5 Neurologic: PERRL, EOMI, accommodation nl, no face palsy, no dysarthria Results & Data Vital Signs (Past 12 Hours) Vital Signs Temp Pulse Pulse Resp BP BP Pulse Ox 07/27/19 08:36 62 112/69 07/27/19 06:51 36.6 C 54 L 20 114/75 94 07/27/19 05:20 36.4 C L 56 L 18 142/80 H 96 07/27/19 04:15 62 16 112/74 96 07/27/19 02:45 67 20 108/59 L 94 07/27/19 02:30 79 20 102/70 94 07/27/19 02:15 124 H 20 109/78 96 07/27/19 01:19 120 H 20 106/75 97 07/27/19 01:17 127 H 106/75 07/27/19 00:48 124 H 20 94/68 L 95 07/27/19 00:23 36.5 C 132 H 20 127/92 96 Laboratory Results 07/27/19 07/27/19 07/27/19 Range/Units 11:56 05:49 00:35 WBC (4.8-10.8) K/uL RBC (4.7-6.1) M/uL Hgb (14.0-18.0) g/dL Hct (42-52) % MCV (80-100) fL MCH (25-34) pg MCHC (32-36) g/dL RDW Std Deviation (36.4-46.3) fL RDW Coeff of Meche (11.5-14.5) % Plt Count (130-400) K/uL MPV (7.4-10.4) fL Immature Gran % (Auto) % Neut % (Auto) % Lymph % (Auto) % [place] % (Auto) % Eos % (Auto) % Baso % (Auto) % Immature Gran # (Auto) (0.00-0.02) K/uL Neut # (Auto) (1.4-6.5) K/uL Lymph # (Auto) (1.2-3.4) K/uL [place] # (Auto) (0.11-0.59) K/uL Eos # (Auto) (0-0.5) K/uL Baso # (Auto) (0-0.2) K/uL PT (9.0-12.0) Seconds INR (0.9-1.1) APTT (21.0-31.0) Seconds PTT Ratio Sodium 142 (136-145) mmol/L Potassium 3.9 (3.5-5.1) mmol/L Chloride 111 H (98-107) mmol/L Carbon Dioxide 23 (21-32) mmol/L Anion Gap 8.0 (3-11) BUN 22 H (7-18) mg/dl Creatinine 1.34 (0.6-1.4) mg/dl Est Cr Clr Drug Dosing 42.8 ml/min Est GFR ( Amer) 58.8 Est GFR (Non-Af Amer) 50.7 BUN/Creatinine Ratio 16.6 (10-20) Glucose 108 H (70-99) mg/dl Calcium 8.6 (8.5-10.1) mg/dl Magnesium 2.2 (1.8-2.4) mg/dl Total Bilirubin 0.5 (0.2-1) mg/dl AST 24 (15-37) U/L ALT 34 (12-78) U/L Alkaline Phosphatase 82 (45-117) U/L Troponin I Pending 0.037 < 0.015 (0-0.045) ng/ml Total Protein 6.9 (6.4-8.2) gm/dl Albumin 3.6 (3.4-5.0) gm/dl Globulin 3.3 (2.5-4.0) gm/dl Albumin/Globulin Ratio 1.1 (0.9-2) TSH 4.210 (0.300-4.500) uIu/ml Specimen Hemolysis 07/27/19 07/27/19 Range/Units 00:35 00:35 WBC 6.03 (4.8-10.8) K/uL RBC 4.71 (4.7-6.1) M/uL Hgb 14.9 (14.0-18.0) g/dL Hct 43.1 (42-52) % MCV 91.5 (80-100) fL MCH 31.6 (25-34) pg MCHC 34.6 (32-36) g/dL RDW Std Deviation 51.7 H (36.4-46.3) fL RDW Coeff of Meche 15.3 H (11.5-14.5) % Plt Count 137 (130-400) K/uL MPV 10.1 (7.4-10.4) fL Immature Gran % (Auto) 0.2 % Neut % (Auto) 48.3 % Lymph % (Auto) 37.8 % [place] % (Auto) 8.5 % Eos % (Auto) 4.5 % Baso % (Auto) 0.7 % Immature Gran # (Auto) 0.01 (0.00-0.02) K/uL Neut # (Auto) 2.92 (1.4-6.5) K/uL Lymph # (Auto) 2.28 (1.2-3.4) K/uL [place] # (Auto) 0.51 (0.11-0.59) K/uL Eos # (Auto) 0.27 (0-0.5) K/uL Baso # (Auto) 0.04 (0-0.2) K/uL PT 10.3 (9.0-12.0) Seconds INR 1.0 (0.9-1.1) APTT 24.5 (21.0-31.0) Seconds PTT Ratio 0.9 Sodium (136-145) mmol/L Potassium (3.5-5.1) mmol/L Chloride (98-107) mmol/L Carbon Dioxide (21-32) mmol/L Anion Gap (3-11) BUN (7-18) mg/dl Creatinine (0.6-1.4) mg/dl Est Cr Clr Drug Dosing ml/min Est GFR ( Amer) Est GFR (Non-Af Amer) BUN/Creatinine Ratio (10-20) Glucose (70-99) mg/dl Calcium (8.5-10.1) mg/dl Magnesium (1.8-2.4) mg/dl Total Bilirubin (0.2-1) mg/dl AST (15-37) U/L ALT (12-78) U/L Alkaline Phosphatase (45-117) U/L Troponin I (0-0.045) ng/ml Total Protein (6.4-8.2) gm/dl Albumin (3.4-5.0) gm/dl Globulin (2.5-4.0) gm/dl Albumin/Globulin Ratio (0.9-2) TSH (0.300-4.500) uIu/ml Specimen Hemolysis Diagnostic Findings EKG on arrival to ER demonstrated: Atrial fibrillation/flutter with rapid ventricular response, RBBB Repeat EKG Sinus bradycardia with 1st degree A-V block Left axis deviation Right bundle branch block Telemetry reviewed: Atrial fibrillation, successfully converting to normal sinus rhythm shortly after midnight. 1.6-second conversion pause noted. Since that time he has remained in normal sinus rhythm, sinus bradycardia with heart rates ranging approximately 55 bpm to 65 bpm. No significant pauses or bradycardia arrhythmias. Cardiac Cath report reviewed, dated 06/14/19 at [facility]: There is a 50% stenosis of proximal RCA. FFR across the lesion was 0.93.There is a 50% stenosis of mid LAD at the trifurcation of 2 diagonal arteries. FFR across the lesion was 0.88. FFR across the D2 was also > 0.9 (not significant)There is a 50% stenosis of ostial large D1. FFR across the lesion was 0.83.Prior stent in LCx is patent.No significant obstructive coronary artery disease identified on this coronary angiography.The coronary arteries have diffuse mild to moderate irregularities.The left ventricular end diastolic pressure was 14 mmHg (normal). Cardiac Cath performed April 17 2019 at outside facility in [place]: 1. LAD 80% proximal stenosis, complex trifurcation lesion with MANDI-3 flow. 2. Right coronary artery with 70% proximal lesion 3. Left circumflex with 99% stenosis with MANDI-2 flow in setting of non ST elevation [place] - Receiving 1 SABINA to the Left Circ 4. EF 50% with mild infralateral hypokinesis Medications Administered Current Inpatient Medications Acetaminophen (Tylenol) 650 mg PO Q4H PRN PRN Reason: Pain or Fever Stop: 08/26/19 05:36 Al Hydrox/Mg Hydrox/Simethicone (Maalox) 15 ml PO Q4H PRN PRN Reason: Dyspepsia Stop: 08/26/19 05:36 Aspirin (Aspirin Chew) 81 mg PO DAILY [facility] Stop: 08/26/19 08:59 Last Admin: 07/27/19 08:37 Dose: 81 mg Documented by: Sodium Chloride (Nss 1000ml) 1,000 mls @ 125 mls/hr IV .Q8H [facility] Stop: 08/26/19 05:36 Last Admin: 07/27/19 06:06 Dose: 125 mls/hr Documented by: Magnesium Hydroxide (Milk Of Magnesia) 30 ml PO Q12H PRN PRN Reason: Constipation Stop: 08/26/19 05:36 Metoprolol Succinate (Toprol Xl) 25 mg PO DAILY [facility] Stop: 08/26/19 08:59 Last Admin: 07/27/19 08:38 Dose: 25 mg Documented by: Metoprolol Tartrate (Lopressor) 5 mg IV Q5M PRN PRN Reason: Tachycardia Stop: 08/26/19 00:30 Last Admin: 07/27/19 01:41 Dose: 5 mg Documented by: Nitroglycerin (Nitrostat) 0.4 mg SL Q5M PRN PRN Reason: chest pain Stop: 08/26/19 04:29 Ondansetron HCl (Zofran) 4 mg IV Q6H PRN PRN Reason: Nausea Stop: 08/26/19 05:36 Polyethylene Glycol (Miralax Powder Packet) 17 gm PO DAILY PRN PRN Reason: Constipation Stop: 08/26/19 05:36 Rosuvastatin Calcium (Crestor) 40 mg PO DAILY [facility] Stop: 08/26/19 08:59 Last Admin: 07/27/19 08:38 Dose: 40 mg Documented by: Ticagrelor (Brilinta) 90 mg PO BID [facility] Stop: 08/26/19 08:59 Last Admin: 07/27/19 08:38 Dose: 90 mg Documented by:
[2019-07-27 11:48] VITALS: TEMP 97.5
[2019-07-27 15:06] VITALS: BP 149/75; PULSE 54; O2SAT 97
--- NOTE | 2019-07-27 15:52 | Discharge Summary ---
Date of Service July 27, 2019 Admission HPI Per Admitting Provider Patient is a 79yo M PMH afib, CAD s/p stent placement Mar 2019, thyroid dysfunction, HLD, HTN, who presented to the ER with concerns of elevated HR. He states that he woke up from sleep at 1030pm with a racing heart. He denied dyspnea, CP, lightheadedness, diaphoresis. He reports he did eat 2 burgers from [facility] and was doing some heavy lifting last evening, citing over-exertion as the cause of this episode. In the ER, he was given 2L IVF, lopressor boluses x 2, and 10 IV diltiazem, when he converted to sinus bradycardia with 1st degree AV block. Labwork revealed a normal CBC, relatively normal BMP, Mag 2.2, LFTs nl, Troponin negative, TSH nl. Of note, on chart review patient diagnosed with Afib in 2013, and had been placed on metoprolol bid, eliquis 5 bid, flecainide 50 bid, but stopped all of these meds on his own as he did not like taking medications. This past summer, he had an episode of indigestion which was found to be an MA. He had a stent placed in L circumflex art, and was started on ASA, toprol succinate 25 daily, brillinta, and rosuvastatin 40. He reports he is compliant with his meds aside from rosuvastatin, which he stopped on his own. Repeat cath in May 2019 revealed <50% blockages in other coronary arteries. Prior records indicate concern for SSS as his HR frequently would flip from 40 to 140. Plan was to establish with cardiology locally. This has not occurred yet. Patient states he has a nuclear stress test scheduled for Aug 02 in [place]. Principal Diagnosis rapid a.fib, resolved; spontaneously converted back to NSR Discharge Exam Constitutional well developed and well nourished; no acute distress ENMT external ear and nose normal, oropharynx normal Respiratory normal respiratory effort, lungs clear to auscultation Cardiovascular Rate/Rhythm: regular rate and regular rhythm Heart Sounds: normal S1 and normal S2; no murmur Vessels: posterior tibial pulses present and dorsalis pedis pulses present; no JVD Extremities: no edema Gastrointestinal (Abdomen) normal bowel sounds, soft, nontender, no hepatosplenomegaly Psychiatric A+Ox3, euthymic affect Discharge Data Allergies Allergy/AdvReac Type Severity Reaction Status Date / Time theophylline AdvReac Intermediate HIGH Verified 07/27/19 00:39 BP,TACHYCARDIA Consultations cardiology - Elvin Choudhary DO Procedures Performed echocardiogram - Normal LA size and volume. Normal LV wall motion and LVEF. No significant valve disease. Hospital Course (1) Rapid atrial fibrillation: The patient was in a.fib for approximately 6 hours (most of this pre- hospital). He spontaneously converted back to NSR in the ER. He was admitted to the telemetry unit and remained in NSR for the remainder of his brief stay. HRs were generally 50s to 60s. Echocardiogram showed preserved EF with normal sized left atrium and normal valve function. Troponins were negative x 3. He was seen in consult by Dr Elvin Choudhary, [facility]. CHADS-VASc score was 4. A lengthy discussion was held with the patient and Dr Choudhary regarding anticoagulation. Despite the CHADS-VASc score it was felt that anticoagulation would be deferred for now in light of infrequent a.fib (last documented episode was 2013) and his concurrent use of aspirin and brilinta. The patient preferred NOT to initiate anticoagulation as well. Dr Choudhary suggested an outpatient event monitor to quantitate any additional a.fib burden. If additional episodes of PAF were identified then a stronger argument for initiating anticoagulation would be made at that time. No medication changes or additions were made during this stay. He will remain on low-dose beta pavithra as previous. Tachy-chris syndrome was not felt to be present. The patient was advised to follow-up with cardiology shortly after discharge. However, he reported that he wanted to see [facility] [place] as opposed to any civil drafting technician in [place]. The patient stated he would make this follow-up appointment on his own. (2) Thyroid disorder: TSH this admission was 4. He is not on thyroid medication. Recommend repeat TSH in about 1 year to ensure he is not developing any early hypothyroid state. (3) Presence of stent in left circumflex coronary artery: See HPI for further details. Continue aspirin, brilinta, beta pavithra, and crestor. (4) CAD (coronary artery disease): See HPI for details (5) Hyperlipidemia: Continue high-intensity statin. (6) Hypertension: BPs mildly elevated during the admission. If BPs continue to be suboptimal as outpatient consider addition of MARIETTA or ARB low-dose if creatinine will allow. (7) Chronic kidney disease, stage 3a: Baseline Cr 1.3/1.4. Creatinine was indeed 1.3 this admission. Baseline CrCl is typically 40s. Total Time Total Time Spent Total Time Spent (In Minutes): 25 Total Time Includes: Examination of the Patient, Discharge Planning, Medication Reconciliation and Communication With Other Providers Discharge Plan Discharge Items Patient Disposition: Home - Self-Care Reason For Visit: Rapid Atrial fibrillation Discharge Diagnosis: Rapid atrial fibrillation - resolved; conversion back to normal rhythm. Activity: Resume your previous activity Non-emergency contact: Primary Care Provider and Superintendent Compressor Stations Call non-emergency contact if: you have any medication questions and your symptoms worsen Follow-up/Referrals: Law Fields MD [Primary Care Provider] - 08/01/19 11:00 am (Please, follow up at Dr. Nova's office with her associate, Nga MICHAEL, on TuesdayAugust 01 at 11:00 am. *If you need to change this appointment, call their office at [phone].) Diet: Heart Healthy Addtl Attending Provider Instructions: You were admitted for an episode of rapid atrial fibrillation. Fortunately you converted fairly quickly back to normal rhythm. You remained in normal rhythm for the remainder of your stay. You were seen by Dr Choudhary from [facility]. No new medications or adjustments in medications were recommended. We are going to defer on anticoagulation (blood thinners) for now. Recommendations - 1. please follow-up with [facility] in [place] 2. please follow-up with Dr Mendoza within about 1 week 3. consider buying a "fit-bit" watch which can track your heart rate day-to-day at home Return to [facility] if - * you have palpitations, rapid heart rate, or any concern you are back in a.fib * you have chest pains * you have shortness of breath * any other concerns Pending Studies at Discharge: No Stand-Alone Forms: My [facility] Retroficiency, Smoking Cessation Medications and DC Order Prescriptions: Continued coenzyme Q10 300 mg capsule 300 mg PO DAILY RF: 0 rosuvastatin [Crestor] 40 mg tablet 40 mg PO DAILY RF: 0 nitroglycerin 0.4 mg tablet, sublingual 0.4 mg SL Q5M PRN (Reason: chest pain) RF: 0 Brilinta 90 mg tablet 90 mg PO BID Qty: 180 RF: 0 metoprolol succinate 25 mg tablet extended release 24 hr 25 mg PO DAILY Qty: 90 RF: 3 aspirin 81 mg tablet,chewable 81 mg PO DAILY RF: 0 Discharge Orders: Discharge Order (Routine); Ordered 07/27/19 Ordered By: Seng Shen Admission Data Admit Date/Time: 07/27/19 04:36 Attending Provider: Seng Shen Admit Provider: Natalia Brush Primary Care Provider: Law Fields V. Other Providers: Wesley Enamorado ; Elvin Choudhary Other Interventions: Discharge Summary Assessment (RN) Last Done: 07/27/19 15:57 DC Date/Time DO NOT enter until pt leaves facility: 07/27/19 16:21
--- NOTE | 2019-07-30 10:46 | XCELERA ---
[id number] \\[email or web address]\[id number]
--- NOTE | 2019-08-03 07:12 | Emergency Department Note ---
History of Present Illness General Chief complaint: Tachycardia Stated complaint: AFIB,POUNDING AND RACING Time Seen by Provider: 07/27/19 00:29 Source: patient Mode of arrival: ambulatory Limitations: no limitations History of Present Illness Onset (ago): hour(s) 1 Location: chest Severity: similar to prior episodes Pain Consistency: + now resolved (pounding) Maximum Pain Intensity: 2 Relieved By: + none Treatments prior to arrival: none Pt is a 79 yo male with h/o atrial fib who presents with approximately 1 hr of pounding, racing heart. Pt state he has some epigastric discomfort but believes he "overdid" it eating 2 burgers this evening. He was also doing some heavy lifting. Pt denies clear SOB. He denies recent illness, nausea, vomiting. He does admit to recent coronary stent placement this last summer. Home Medications Home Medications Medication Instructions Recorded Confirmed Type coenzyme Q10 300 mg capsule 300 mg PO DAILY 06/23/19 07/31/19 History nitroglycerin 0.4 mg sublingual 0.4 mg SL Q5M PRN 06/23/19 07/31/19 History tablet rosuvastatin 40 mg tablet 40 mg PO DAILY 06/23/19 07/31/19 History metoprolol succinate 25 mg 25 mg PO DAILY #90 tab 06/25/19 07/31/19 Rx tablet,extended release 24 hr ticagrelor 90 mg tablet 90 mg PO BID #180 tab 06/25/19 07/31/19 Rx aspirin 81 mg PO DAILY 07/27/19 07/31/19 History Allergies Allergy/AdvReac Type Severity Reaction Status Date / Time theophylline AdvReac Intermediate HIGH Verified 07/27/19 00:39 BP,TACHYCARDIA Past Med/Surg History Medical History Abnormal finding on thyroid function test (Acute) AF (paroxysmal atrial fibrillation) (Acute) Afib (Acute 12/18/13) Anxiety disorder due to medical condition (Resolved) Bradycardia (Acute) CAD (coronary artery disease) Headache (Acute) Hearing loss (Acute) Hyperlipidemia (Acute) Hypertension (Acute) Obstructive sleep apnea (Acute) Presence of stent in left circumflex coronary artery Shortness of breath on exertion (Acute) Sleep disturbance (Acute) Thrombocytopenia (Acute) Thyroid disorder (Chronic) Surgical History S/P appendectomy S/P knee surgery S/P tonsillectomy Family History Sister Hypertension Hypothyroidism Mother Leukemia Father Myocardial infarction Uncle Myocardial infarction Social History Preferred Language: Pry[place]in[place] Communication Ability: Effective Visual Impairment: No Limitations Hearing Ability: Normal 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 and A total of 10 systems reviewed and were otherwise negative Physical Exam Vital signs reviewed. General: Well-appearing 79 yo male, in no significant distress. HEENT: No scleral icterus, PERRLA, neck supple. Atraumatic. Cardiovascular: tachycardic and irregular, no extra sounds. Pulmonary: Clear to auscultation bilaterally, normal work of breathing. Abdomen: Soft, mild epigastric discomfort to palpation, nondistended, positive bowel sounds. Musculoskeletal: Atraumatic, no peripheral edema. Neurologic: Patient awake alert and oriented x 3 Skin: Warm, dry, no rash Course Course Differential diagnosis: Etiologies such as shingles, musculoskeletal pain, pericarditis, myocarditis, cardiac ischemia, pericardial tamponade, pneumonia, pneumothorax, pleural effusion, hemothorax, pleurisy, aortic pathology, pulmonary embolism, intra- abdominal process, as well as others were considered. Administered Medications Discontinued Medications Aspirin (Aspirin Chew) 81 mg PO DAILY ARIEL Stop: 08/26/19 08:59 Last Admin: 07/27/19 08:37 Dose: 81 mg Documented by: [id number] Diltiazem HCl (Cardizem) 10 mg IV NOW STA Stop: 07/27/19 02:15 Last Admin: 07/27/19 02:20 Dose: 10 mg Documented by: [id number] Cosigned by: [id number] Sodium Chloride (Nss 1000ml) 250 mls @ 999 mls/hr IV .Q16M ONE Stop: 07/27/19 01:15 Last Infusion: 07/27/19 01:19 Dose: 0 mls/hr Documented by: [id number] Admin: 07/27/19 01:03 Dose: 999 mls/hr Documented by: [id number] Sodium Chloride (Nss 1000ml) 250 mls @ 999 mls/hr IV .Q16M ONE Stop: 07/27/19 02:29 Last Infusion: 07/27/19 02:33 Dose: 0 mls/hr Documented by: [id number] Admin: 07/27/19 02:17 Dose: 999 mls/hr Documented by: [id number] Sodium Chloride (Nss 1000ml) 1,000 mls @ 125 mls/hr IV .Q8H ARIEL Stop: 08/26/19 05:36 Last Admin: 07/27/19 14:41 Dose: Not Given Documented by: [id number] Infusion: 07/27/19 14:32 Dose: 0 mls/hr Documented by: [id number] Admin: 07/27/19 06:06 Dose: 125 mls/hr Documented by: [id number] Metoprolol Succinate (Toprol Xl) 25 mg PO DAILY ARIEL Stop: 08/26/19 08:59 Last Admin: 07/27/19 08:38 Dose: 25 mg Documented by: [id number] Metoprolol Tartrate (Lopressor) 5 mg IV NOW STA Stop: 07/27/19 00:32 Last Admin: 07/27/19 00:43 Dose: 5 mg Documented by: [id number] Metoprolol Tartrate (Lopressor) 5 mg IV Q5M PRN PRN Reason: Tachycardia Stop: 08/26/19 00:30 Last Admin: 07/27/19 01:41 Dose: 5 mg Documented by: [id number] Admin: 07/27/19 01:17 Dose: 5 mg Documented by: [id number] Potassium Chloride (Klor-Con M10) 10 meq PO NOW STA Stop: 07/27/19 05:38 Last Admin: 07/27/19 08:37 Dose: 10 meq Documented by: [id number] Rosuvastatin Calcium (Crestor) 40 mg PO DAILY ARIEL Stop: 08/26/19 08:59 Last Admin: 07/27/19 08:38 Dose: 40 mg Documented by: [id number] Ticagrelor (Brilinta) 90 mg PO BID ARIEL Stop: 08/26/19 08:59 Last Admin: 07/27/19 08:38 Dose: 90 mg Documented by: [id number] Medical Decision Making Medical Records Attestation: I reviewed the patient's medical records. Home Medications Current Medication List: was personally reviewed by me Laboratory Data Attestation: I reviewed the patient's lab results. Result diagrams: 07/27/19 00:35 07/27/19 00:35 Lab Results 07/27/19 07/27/19 07/27/19 Range/Units 00:35 00:35 00:35 WBC 6.03 (4.8-10.8) K/uL RBC 4.71 (4.7-6.1) M/uL Hgb 14.9 (14.0-18.0) g/dL Hct 43.1 (42-52) % MCV 91.5 (80-100) fL MCH 31.6 (25-34) pg MCHC 34.6 (32-36) g/dL RDW Std Deviation 51.7 H (36.4-46.3) fL RDW Coeff of Meche 15.3 H (11.5-14.5) % Plt Count 137 (130-400) K/uL MPV 10.1 (7.4-10.4) fL Immature Gran % (Auto) 0.2 % Neut % (Auto) 48.3 % Lymph % (Auto) 37.8 % Coles % (Auto) 8.5 % Eos % (Auto) 4.5 % Baso % (Auto) 0.7 % Immature Gran # (Auto) 0.01 (0.00-0.02) K/uL Neut # (Auto) 2.92 (1.4-6.5) K/uL Lymph # (Auto) 2.28 (1.2-3.4) K/uL Coles # (Auto) 0.51 (0.11-0.59) K/uL Eos # (Auto) 0.27 (0-0.5) K/uL Baso # (Auto) 0.04 (0-0.2) K/uL PT 10.3 (9.0-12.0) Seconds INR 1.0 (0.9-1.1) APTT 24.5 (21.0-31.0) Seconds PTT Ratio 0.9 Sodium 142 (136-145) mmol/L Potassium 3.9 (3.5-5.1) mmol/L Chloride 111 H (98-107) mmol/L Carbon Dioxide 23 (21-32) mmol/L Anion Gap 8.0 (3-11) BUN 22 H (7-18) mg/dl Creatinine 1.34 (0.6-1.4) mg/dl Est Cr Clr Drug Dosing 42.8 ml/min Est GFR ( Amer) 58.8 Est GFR (Non-Af Amer) 50.7 BUN/Creatinine Ratio 16.6 (10-20) Glucose 108 H (70-99) mg/dl Calcium 8.6 (8.5-10.1) mg/dl Magnesium 2.2 (1.8-2.4) mg/dl Total Bilirubin 0.5 (0.2-1) mg/dl AST 24 (15-37) U/L ALT 34 (12-78) U/L Alkaline Phosphatase 82 (45-117) U/L Troponin I < 0.015 (0-0.045) ng/ml Total Protein 6.9 (6.4-8.2) gm/dl Albumin 3.6 (3.4-5.0) gm/dl Globulin 3.3 (2.5-4.0) gm/dl Albumin/Globulin Ratio 1.1 (0.9-2) TSH 4.210 (0.300-4.500) uIu/ml Specimen Hemolysis Imaging Data Radiologist's Impression: XR chest 1V portable CLINICAL HISTORY: tachycardia COMPARISON STUDY: May 23, 2017 FINDINGS: The cardiac and mediastinal contours are normal. There is no evidence of focal pulmonary consolidation. There is no evidence of failure. No pleural effusions are visualized.[There is minor left basilar atelectasis/scarring. IMPRESSION: No active disease in the chest. Electronically signed by: Primo Cordero M.D. 07/27/2019 6:32 AM Dictated: 07/27/19631 Transcribed: 07/27/19631 ECG Data Attestation: I personally reviewed and interpreted this ECG as follows: Indication: + other (palpitations) Rate (beats per minute): 149 Rhythm: + atrial fibrillation ECG Intervals/blocks: + Right Bundle branch block ECG ST segments: + ST depression (Anterior) and + repolarization abnormalities Comparison ECG Date: from (05/30/17) Change: the following changes noted (rapid atrial fib is new, ST depression anteriorly new) Blood Pressure Blood Pressure Findings: Normal blood pressure Blood Pressure Disposition: did not require urgent referral MDM Narrative This pt was evaluated and appeared to be in no distress. IV access was obtained and lab work was drawn. PT was placed on the mail officer, found to be in afib wih RVR. EKG confirms these findings. Pt was medicated with IV metoprolol 5 mg x 1 with minimal improvement. He was given 250 mL IV NSS for borderline hypotension and an additional 5 mg IV metoprolol for persistent tachycardia. Pt remained in atrial fib, but rate was much improved. Lab work is reassuring w ith K of 3.9, Mag 2.2 and neg troponin. CXR is clear. Pt was reevaluated and felt improved. Given his history of [place], atrial fib, he will be evaluated by the hospitalist for further management. Impression & Plan Rapid atrial fibrillation Discharge Plan Visit Data *Final* Discharge Date/Time: 07/27/19 04:59 Chief Complaint: Tachycardia Stated Complaint: AFIB,POUNDING AND RACING ED Provider: Tricia Villanueva Discharge Problem: Rapid atrial fibrillation Patient Disposition: Admitted As Inpatient Discharge Instructions Interventions: ED Discharge Assessment Last Done: 07/27/19 04:59
== END 2019-07-27 16:21 | disposition home or self-care (01) ==
LOC: ED 00:20 → 2S 00:20 → SUATTDRO 04:36 → 2S 04:59
DX: Z79.82 Long term (current) use of aspirin; I25.10 Atherosclerotic heart disease of native coronary artery without angina pectoris; Z79.899 Other long term (current) drug therapy; I48.0 Paroxysmal atrial fibrillation; Z95.818 Presence of other cardiac implants and grafts; I10 Essential (primary) hypertension; Z88.8 Allergy status to other drugs, medicaments and biological substances; E07.9 Disorder of thyroid, unspecified; Z82.49 Family history of ischemic heart disease and other diseases of the circulatory system; G47.33 Obstructive sleep apnea (adult) (pediatric); F41.9 Anxiety disorder, unspecified; E78.5 Hyperlipidemia, unspecified

== ENCOUNTER 2022-10-20 13:35 | Observation (INO) ==
--- NOTE | 2022-10-20 13:54 | Emergency Department Note ---
Impression & Plan Hypertensive urgency, History of CAD (coronary artery disease), Nonadherence to medication ED Provider Note NAME: MANA PADILLA AGE: 82 SEX: M : 1940 ARRIVES VIA: Walk-In INFORMANT: Patient, ED PROVIDER(S): Marino Escobar MD CHIEF COMPLAINT: High blood pressure MEDICAL DECISION MAKING: Patient presents due to concern for high blood pressure. Blood work is obtained along with an EKG Patient's blood work shows mild leukopenia white count of 4.3 with a normal H&H and platelet count. Kidney function is unremarkable with normal electrolytes BSG 24 but not DKA. COVID-negative. I did speak with on-call cardiology who stated that if the patient was asymptomatic and blood pressures were improving that he may restart his home metoprolol. This was discussed in consultation with Dr. Carvalho. However, the patient had persistently elevated blood pressures greater than 220 systolic. Given the patient's persistent hypertension and medication noncompliance and history of known CAD status post stent placement do believe the patient would benefit from inpatient treatment and further monitoring and medical management of his hypertensive urgency. The patient was ordered IV Lopressor. I did speak the on-call hospitalist service Dr. Amaral and the patient was admitted to the medicine service. Chest x-ray was clear. Critical Care: I have personally spent 35 minutes of critical care time in direct management of this patient. This includes bedside care, interpretation of diagnostic studies, and testing, discussion with consultants, patient, and family members, and other require inpatient management activities. This 35 minutes is in excess of all separately billable procedures. Prior /Outside records reviewed: I did review the patient's most recent outpatient note with Huang Benavides with cardiology Differential diagnosis: Benign hypertension, hypertensive emergency, cardiovascular pathology, toxicol ogic, pheochromocytoma, electrolyte abnormality, renal disease, endorgan damage, as well as other pathologies. Diagnostics, as interpreted by me: ECG: Sinus rhythm, rate of 62, wide QRS, left axis deviation right bundle branch block pattern. No ST elevations. Cardiac monitoring: An order was placed for continuous cardiac monitoring. The monitor shows a rate of 67 with sinus rhythm. Patient was placed on pulse oximetry Medical decision rules: None Imaging studies: See below HPI: Patient presents due to concern for high blood pressure. The patient was at a routine eye appointments when he was told that his blood pressure was "anayeli high." Patient states that he took himself off his own metoprolol 1 month prior. Patient states that he was not instructed to do so but he did it because he was "down." Patient denies any chest pain or shortness of breath. He does have occasional headaches. The patient does have 2 eating junk food yesterday including Doritos and salt. Patient denies any nausea vomiting or diarrhea. No alcohol or tobacco no increase in stress PAST MEDICAL HISTORY: See Below PAST SURGICAL HISTORY: See Below SOCIAL HISTORY: See Below HOME MEDICATIONS: See Below ALLERGIES: See Below VITALS: See Below PHYSICAL EXAMINATION: GENERAL: NAD, wearing a mask, non-toxic. Wearing glasses. EYE EXAM: Left-sided conjunctival injection without any entrapment or proptosis. PERRL, no anisocoria and EOM's grossly intact w/o pain. NECK: Supple, no nuchal rigidity, no adenopathy, non-tender. No signs of meningismus. FROM of the neck with good chin to chest and neck extension. No stridor. LUNGS: Clear to auscultation. Normal chest wall mechanics. HEART: NSR, no MRG. ABDOMEN: Abdomen soft, non-tender, normo-active bowel sounds, no masses, no rebound or guarding. BACK: No CVA TTP. SKIN: No rashes and no bruising. UPPER EXTREMITIES: Upper extremities are grossly normal. LOWER EXTREMITIES: Grossly normal, no edema. NEURO EXAM: A&O x3, cranial nerves II-XII grossly intact, normal speech, moves all 4 extremities. Past Med/Surg History Medical History Afib (12/18/13) PAROXYSMAL - 2013, 2019 Anxiety disorder due to medical condition Bradycardia CAD (coronary artery disease) Headache Hearing loss Hyperlipidemia Hypertension Obstructive sleep apnea Presence of stent in left circumflex coronary artery Rectal bleeding Sleep disturbance Thrombocytopenia Surgical History S/P appendectomy S/P knee surgery right - torn meniscus S/P tonsillectomy Family History Sister Hypertension Hypothyroidism Mother Leukemia Father Myocardial infarction Uncle Myocardial infarction Denies family history of Ovarian cancer Prostate cancer Breast cancer Lung cancer Colorectal cancer Stroke Social History Smoking Status: Never smoker Second Hand Exposure: No; Do You Dip or Chew Tobacco: No; Tobacco Cessation Education Requested by Patient: No Hx Alcohol Use: No Hx Substance Use: No Preferred Language: Maltese Communication Ability: Effective Visual Impairment: No Limitations Hearing Ability: Normal [place] Hand Required: No Beliefs That Will Affect Care: None marital status: Single Current Living Situation: Alone current occupational status: retired 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 Other Information That Helps Us Care for You: No Feels Safe at Home: Yes Safety Concerns: Feels Safe At This Time Childhood Exposure to Second-Hand Smoke: No Seatbelt Use: always Assistive Devices: Glasses and Hearing Aid - Left Allergies Allergies Allergy/AdvReac Type Severity Reaction Status Date / Time theophylline AdvReac Intermediate HIGH Verified 10/20/22 16:40 BP,TACHYCARDIA Home Meds Previous Rx's Medication Instructions Recorded nitroglycerin 0.4 mg sublingual 0.4 mg sublingual Q5M PRN chest 08/23/19 tablet pain #25 tabs aspirin 81 mg tablet,delayed 81 mg PO DAILY #90 tabs 07/29/21 release (John Low Dose Aspirin) metoprolol succinate 25 mg 50 mg PO DAILY #180 tabs 07/29/21 tablet,extended release 24 hr Results & Data (ED) Vital Signs Vital Signs - 24 hr 10/20/22 13:37 10/20/22 13:51 10/20/22 14:03 Temperature 36.8 C Temperature Source Temporal Artery Scan Pulse Rate 63 64 Pulse Rate from SpO2 Sensor Pulse Rhythm Respiratory Rate 20 27 H Respiratory Effort / Characteristics Non-Labored Spontaneous Non-Labored Spontaneous Respiratory Depth Normal Normal Respiratory Pattern Regular Regular Blood Pressure 219/108 H Blood Pressure [Right Arm] 227/108 H Blood Pressure Mean 145 Blood Pressure Mean [Right Arm] 147 Blood Pressure Position [Right Arm] Sitting Pulse Oximetry 96 97 Oxygen Delivery Method Room Air Room Air Oxygen Flow Rate Sepsis Recent Fever Within 48 Hours No Sepsis New/Unexplained Change in Mental Status No Sepsis Action Taken by Nursing No Action Required 10/20/22 14:01 10/20/22 14:02 10/20/22 15:13 Temperature Temperature Source Pulse Rate 66 64 64 Pulse Rate from SpO2 Sensor 64 Pulse Rhythm Regular Respiratory Rate 18 23 18 Respiratory Effort / Characteristics Respiratory Depth Respiratory Pattern Blood Pressure Blood Pressure [Right Arm] Blood Pressure Mean Blood Pressure Mean [Right Arm] Blood Pressure Position [Right Arm] Pulse Oximetry 95 96 Oxygen Delivery Method Room Air Room Air Oxygen Flow Rate 0 Sepsis Recent Fever Within 48 Hours Sepsis New/Unexplained Change in Mental Status Sepsis Action Taken by Nursing 10/20/22 15:13 10/20/22 15:30 10/20/22 15:30 Temperature Temperature Source Pulse Rate 64 Pulse Rate from SpO2 Sensor Pulse Rhythm Respiratory Rate 19 Respiratory Effort / Characteristics Respiratory Depth Respiratory Pattern Blood Pressure 222/94 H 186/91 H Blood Pressure [Right Arm] Blood Pressure Mean 136 122 Blood Pressure Mean [Right Arm] Blood Pressure Position [Right Arm] Pulse Oximetry Oxygen Delivery Method Oxygen Flow Rate Sepsis Recent Fever Within 48 Hours Sepsis New/Unexplained Change in Mental Status Sepsis Action Taken by Nursing 10/20/22 16:58 10/20/22 16:08 10/20/22 16:08 Temperature Temperature Source Pulse Rate 62 65 Pulse Rate from SpO2 Sensor Pulse Rhythm Respiratory Rate 27 H Respiratory Effort / Characteristics Respiratory Depth Respiratory Pattern Blood Pressure 227/97 H 222/106 H Blood Pressure [Right Arm] Blood Pressure Mean 144 Blood Pressure Mean [Right Arm] Blood Pressure Position [Right Arm] Pulse Oximetry Oxygen Delivery Method Oxygen Flow Rate Sepsis Recent Fever Within 48 Hours Sepsis New/Unexplained Change in Mental Status Sepsis Action Taken by Nursing 10/20/22 16:10 10/20/22 16:10 10/20/22 16:30 Temperature Temperature Source Pulse Rate 68 63 Pulse Rate from SpO2 Sensor 67 62 Pulse Rhythm Respiratory Rate 24 23 Respiratory Effort / Characteristics Respiratory Depth Respiratory Pattern Blood Pressure 230/99 H Blood Pressure [Right Arm] Blood Pressure Mean 142 Blood Pressure Mean [Right Arm] Blood Pressure Position [Right Arm] Pulse Oximetry 95 94 Oxygen Delivery Method Room Air Room Air Oxygen Flow Rate Sepsis Recent Fever Within 48 Hours Sepsis New/Unexplained Change in Mental Status Sepsis Action Taken by Nursing 10/20/22 16:59 10/20/22 16:59 10/20/22 17:00 Temperature Temperature Source Pulse Rate 60 61 Pulse Rate from SpO2 Sensor 60 61 Pulse Rhythm Respiratory Rate 21 22 Respiratory Effort / Characteristics Respiratory Depth Respiratory Pattern Blood Pressure 227/97 H Blood Pressure [Right Arm] Blood Pressure Mean 140 Blood Pressure Mean [Right Arm] Blood Pressure Position [Right Arm] Pulse Oximetry 96 96 Oxygen Delivery Method Room Air Room Air Oxygen Flow Rate Sepsis Recent Fever Within 48 Hours Sepsis New/Unexplained Change in Mental Status Sepsis Action Taken by Long Term Medications Current Medication List: was personally reviewed by me Laboratory Data Attestation: I reviewed the patient's lab results. 10/20/22 14:08 10/21/22 06:37 Lab Results 10/20/22 10/20/22 10/20/22 Range/Units 14:05 14:08 16:14 WBC 4.36 L (4.8-10.8) K/ul RBC 4.65 L (4.70-6.10) M/uL Hgb 14.4 (14.0-18.0) g/dl Hct 42.3 (42.0-52.0) % MCV 91.0 (80.0-100.0) fL MCH 31.0 (25.0-34.0) pg MCHC 34.0 (32.0-36.0) g/dL RDW Std Deviation 46.3 (36.4-46.3) fL RDW Coeff of Meche 13.8 (11.5-14.5) % Plt Count 134 (130-400) K/uL MPV 10.3 (9.4-12.4) fL Immature Gran % (Auto) 0.0 % Neut % (Auto) 54.7 % Lymph % (Auto) 31.0 % Gregory % (Auto) 9.2 % Eos % (Auto) 4.6 % Baso % (Auto) 0.5 % Neut # (Auto) 2.39 (1.40-6.50) K/uL Lymph # (Auto) 1.35 (1.2-3.4) K/uL Gregory # (Auto) 0.40 (0.11-0.59) K/uL Eos # (Auto) 0.20 (0-0.50) K/uL Baso # (Auto) 0.02 (0-0.2) K/uL Immature Gran # (Auto) 0.00 L (0.01-0.20) K/uL Sodium 140 (136-145) mmol/L Potassium 3.8 (3.5-5.1) mmol/L Chloride 106 (98-107) mmol/L Carbon Dioxide 29 (21-32) mmol/L Anion Gap 5 (3-11) BUN 19 (6-23) mg/dl Creatinine 1.36 (0.6-1.4) mg/dl Est Cr Clr Drug Dosing 40.6 ml/min Est GFR ( Amer) 56.6 ml/min Est GFR (Non-Af Amer) 48.8 ml/min BUN/Creatinine Ratio 14.0 (10-20) Glucose 124 H (70-99(Fasting)) mg/dl Calcium 9.4 (8.5-10.1) mg/dl Total Bilirubin 0.5 (0.2-1.0) mg/dl AST 22 (13-39) U/L ALT 18 (7-52) U/L Alkaline Phosphatase 62 (34-104) U/L Troponin I High Sens 5.7 (0-20) pg/ml Total Protein 6.9 (6.0-8.3) gm/dl Albumin 4.3 (3.4-5.0) gm/dl Globulin 2.6 (2.5-4.0) gm/dl Albumin/Globulin Ratio 1.7 (0.9-2) SARS-CoV-2, RNA, NAAT NEGATIVE (NEGATIVE) Administered Medications Aspirin (Aspirin 81 Mg Ectab) 81 mg PO DAILY [facility] Stop: 11/19/22 19:35 Last Admin: 10/21/22 07:35 Dose: 81 mg Documented By: Admin: 10/20/22 20:58 Dose: 81 mg Documented By: ELISE Hydralazine HCl (Hydralazine Hcl 20 Mg/Ml Vial) 10 mg IV Q8H PRN PRN Reason: systolic BP >190 Stop: 11/19/22 19:35 Last Admin: 10/20/22 21:43 Dose: 10 mg Documented By: ELISE Metoprolol Succinate (Metoprolol Succ 25mg Ext Rel Tab) 25 mg PO HS [facility] Stop: 11/19/22 20:59 Last Admin: 10/20/22 20:57 Dose: 25 mg Documented By: ELISE Discontinued Medications Amlodipine Besylate (Amlodipine Besylate 5 Mg Tab) 5 mg PO NOW STA Stop: 10/20/22 17:45 Last Admin: 10/20/22 18:03 Dose: 5 mg Documented By: BING Metoprolol Tartrate (Metoprolol Tartrate 1 Mg/Ml Vial) 5 mg IV NOW STA Stop: 10/20/22 16:50 Last Admin: 10/20/22 16:58 Dose: 5 mg Documented By: BING Imaging Data Radiologist's Impression: Chest X-Ray 10/20/22 14:01 XR chest 1V portable CLINICAL HISTORY: Hypertension. COMPARISON STUDY: Chest CT May 18, 2017. Chest radiograph September 06, 2019. FINDINGS: Lung volumes are normal. Lungs are clear. There is no pneumothorax or pleural effusion. Cardiac size is stable. Mediastinal contours are normal. There is no evidence for pulmonary edema. IMPRESSION: No acute cardiopulmonary findings. ACT 112: Negative or not required by law. Electronically signed by: Efren Lazo M.D. 10/20/2022 3:06 PM Discharge Plan Visit Data Chief Complaint: Hypertension Stated Complaint: HYPERTENSION ED Provider: Marino Escobar Discharge Problem: Hypertensive urgency, History of CAD (coronary artery disease), Nonadherence to medication Patient Disposition: Admitted As Inpatient Discharge Instructions Interventions: ED Discharge Assessment Last Done: 10/20/22 19:11
[2022-10-20 14:36] LABS: Basophils # (auto) 0.02 K/uL (0-0.2); Basophils % (auto) 0.5 %; Eosinophils % (auto) 4.6 %; Hematocrit (blood only) 42.3 % (42.0-52.0); Hemoglobin 14.4 g/dl (14.0-18.0); Lymphocytes # (auto) 1.35 K/uL (1.2-3.4); Mean Platelet Volume 10.3 fL (9.4-12.4); Monocytes % (auto) 9.2 %; Neutrophils # (auto) 2.39 K/uL (1.40-6.50); Neutrophils % (auto) 54.7 %; Platelet Count 134 K/uL (130-400); RDW Coefficient of Variation 13.8 % (11.5-14.5); RDW Standard Deviation 46.3 fL (36.4-46.3); Red Blood Count 4.65 M/uL (4.70-6.10); White Blood Count 4.36 K/ul (4.8-10.8)
[2022-10-20 14:44] LABS: Albumin Globulin Ratio 1.7 (0.9-2); Albumin Level 4.3 gm/dl (3.4-5.0); Bilirubin,Total 0.5 mg/dl (0.2-1.0); Calcium 9.4 mg/dl (8.5-10.1); Creatinine Clr Calc Pharmacy 40.6 ml/min; Est GFR (African American) 56.6 ml/min; Est GFR (Non-African American) 48.8 ml/min; Globulin 2.6 gm/dl (2.5-4.0); Potassium 3.8 mmol/L (3.5-5.1); Total Protein 6.9 gm/dl (6.0-8.3)
[2022-10-20 14:50] LABS: Troponin I High Sensitivity 5.7 pg/ml (0-20)
--- NOTE | 2022-10-20 15:07 | XRay Report ---
XR chest 1V portable CLINICAL HISTORY: Hypertension. COMPARISON STUDY: Chest CT May 18, 2017. Chest radiograph September 06, 2019. FINDINGS: Lung volumes are normal. Lungs are clear. There is no pneumothorax or pleural effusion. Car diac size is stable. Mediastinal contours are normal. There is no evidence for pulmonary edema. IMPRESSION: No acute cardiopulmonary findings. ACT 112: Negative or not required by law. Electronically signed by: Efren Lazo M.D. 10/20/2022 3:06 PM
--- NOTE | 2022-10-20 15:29 | Electrocardiogram Report ---
Test Reason : Blood Pressure : / mmHG Vent. Rate : 062 BPM Atrial Rate : 062 BPM P-R Int : 196 ms QRS Dur : 124 ms QT Int : 422 ms P-R-T Axes : 036 -46 026 degrees QTc Int : 428 ms Normal sinus rhythm Right bundle branch block Left anterior fascicular block Bifascicular block Abnormal ECG When compared with ECG of 06-SEP-2019 11:18, T wave inversion no longer evident in Anterior leads Confirmed by Delvin Carvalho ([id number]) on 10/20/2022 3:29:14 PM Referred By: Confirmed By:Delvin Carvalho
[2022-10-20] MEDS ORDERED: METOPROLOL TARTRATE 1 MG/ML VIAL IV STA (16:49)
--- NOTE | 2022-10-20 17:15 | History & Physical Report ---
Date of Service October 20, 2022 Assessment & Plan (1) Hypertensive urgency: Plan: Fortunately minimal symptoms related to his uncontrolled HTN except mild headache. Can't say for certain if left eye symptoms are directly related to uncontrolled HTN or not. EKG stable. Troponin negative. Looks well and feels well overall. Suspect that his BPs simply sonia due to noncompliance with usual med regimen at home. Lopressor 5mg IV x 1 given in ER without any effect. Simply resume his metoprolol succinate 25mg x 1 this evening. Also add amlodipine 5mg x 1 now. Hydralazine 10mg IV prn for SBP>190. Check BMP, TSH, and echo in am. (2) PAF (paroxysmal atrial fibrillation): Plan: Keep on tele. No PAF since 2019. He is NOT on chronic anticoagulation. Resume beta pavithra. (3) CAD (coronary artery disease): Plan: Despite #1 no current or recent ischemic symptoms. resume BB. Continue aspirin. Uncertain why he is not on statin therapy - previous LDLs have been >100. HS troponin negative. (4) Chronic kidney disease, stage 3a: Plan: Baseline CrCl about 40. BMP am for stability. (5) Dyslipidemia: Plan: Previous LDLs on lipid profiles have been 140 or higher over the last 5-6 years. In light of CAD uncertain why he is not on statin therapy. Will d/w patient. (6) Acute left eye pain: Plan: Saw his eye physician today. Was placed on steroid drops for such? He does have evidence of subconjunctival hemorrhage which is benign & self- limiting. By pt's report his ocular pressures & retina were wnl. Will need to find out about his steroid drops and when his eye f/u should be. Plan DVT proph - if he stays beyond tomorrow will add chemical DVT proph place on observation status History of Present Illness Chief Complaint: elevated blood pressure Primary Care Provider: Law Fields MD 82yo male with history of paroxysmal a.fib, CAD s/p MD with stent placement, and hyperlipidemia presents from his local eye physician's office due to markedly elevated blood pressure. The patient reports having had mild frontal headaches for a few days as well as mild left eye pain for a day or two. He went to [facility] today to have the eye evaluated. By his report his ocular pressures were normal, and he was told that his retina was normal. He was prescribed a steroid eye drop for the left eye. While at the visit he had his blood pressure checked and the systolic was >200. He was advised to report to the ER for evaluation. During my assessment he states his headache has started to improve. He was given IV lopressor 5mg x 1 prior to my arrival and his SBP improved to ~190. He denies ANY recent chest pain, dyspnea, focal neurological deficits, or other changes in his health. He admits to taking himself off his metoprolol about 1 month ago stating he felt that he didn't need it any longer. Denies any prior diagnosis of HTN, stating "my blood pressure was always good." He follows with [facility] in [place] but has not seen them in over a year. Last echocardiogram was ~2 years ago to his recollection. Allergies Allergy/AdvReac Type Severity Reaction Status Date / Time theophylline AdvReac Intermediate HIGH Verified 10/20/22 16:40 BP,TACHYCARDIA Home Medications Medication Instructions Recorded Confirmed Type nitroglycerin 0.4 mg sublingual 0.4 mg sublingual Q5M PRN chest 08/23/19 10/20/22 Rx tablet pain #25 tabs aspirin 81 mg tablet,delayed 81 mg PO DAILY #90 tabs 07/29/21 10/20/22 Rx release (John Low Dose Aspirin) metoprolol succinate 25 mg 50 mg PO DAILY #180 tabs 07/29/21 10/20/22 Rx tablet,extended release 24 hr Past Med/Surg History Medical History (Updated 10/20/22 @ 21:06 by Seng Shen) Afib (12/18/13) PAROXYSMAL - 2013, 2019 Anxiety disorder due to medical condition Bradycardia CAD (coronary artery disease) Headache Hearing loss Hyperlipidemia Hypertension Obstructive sleep apnea Presence of stent in left circumflex coronary artery Rectal bleeding Sleep disturbance Thrombocytopenia Surgical History S/P appendectomy S/P knee surgery right - torn meniscus S/P tonsillectomy Family History Sister Hypertension Hypothyroidism Mother Leukemia Father Myocardial infarction Uncle Myocardial infarction Denies family history of Ovarian cancer Prostate cancer Breast cancer Lung cancer Colorectal cancer Stroke Social History (Updated 10/20/22 @ 21:07 by Seng Shen) Smoking Status: Never smoker Second Hand Exposure: No; Do You Dip or Chew Tobacco: No; Tobacco Cessation Education Requested by Patient: No Hx Alcohol Use: No Hx Substance Use: No Preferred Language: Pakistani Communication Ability: Effective Visual Impairment: No Limitations Hearing Ability: Normal Aircraft Servicer Required: No Beliefs That Will Affect Care: None marital status: Single Current Living Situation: Alone current occupational status: retired 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 [employer] Other Information That Helps Us Care for You: No Feels Safe at Home: Yes Safety Concerns: Feels Safe At This Time Childhood Exposure to Second-Hand Smoke: No Seatbelt Use: always Assistive Devices: Glasses and Hearing Aid - Left Review of Systems Review of Systems: gen - normal appetite, no weight change; no fevers/chills eye - left eye pain, injection; no blurred vision HENT - no sore throat, runny nose, or congestion; chronic hearing loss CV - no orthopnea, edema, chest pain, palpitations pulm - no cough or dyspnea GI - no abd pain, nausea, emesis, diarrhea, BRBPR - positive for urinary frequency and nocturia; no hesitancy or dribbling musculo - denies joint pains skin - no rash endo - no diabetes neuro - mild headaches x 3 days; no focal neuro deficits or motor weakness lymph - no lymph nodes psych - no depression Physical Exam Physical Exam: gen - NAD, pleasant, a/o x 3 eye - subconjunctival hemorrhage medial left eye; PERRL; no photophobia HENT - MMM, no lesions; hearing aid left ear canal neck - no JVD, no bruits, no masses heart - RRR, s1 s2, no murmur lungs - mild fine dry bibasilar rales, otherwise CTA b/l abd - soft NT ND BS+ ext - no edema, pulses 2+ b/l skin - no rash neuro - strength 5/5 x 4 exts musculo - no joint effusions psych - a/o x 3 vascular - radial pulses 2+ b/l Results & Data Results & Data ([facility]) Vital Signs (Past 12 Hours) Vital Signs Temp Pulse Resp BP BP Pulse Ox O2 Del Method 10/20/22 16:58 62 227/97 H 10/20/22 15:30 64 19 10/20/22 15:30 186/91 H 10/20/22 15:13 222/94 H 10/20/22 15:13 64 18 10/20/22 14:02 64 23 96 Room Air 10/20/22 14:01 66 18 95 Room Air 10/20/22 14:03 64 10/20/22 13:51 27 H 227/108 H 97 Room Air 10/20/22 13:37 36.8 C 63 20 219/108 H 96 Room Air O2 Flow Rate 10/20/22 16:58 10/20/22 15:30 10/20/22 15:30 10/20/22 15:13 10/20/22 15:13 10/20/22 14:02 10/20/22 14:01 0 10/20/22 14:03 10/20/22 13:51 10/20/22 13:37 Laboratory Results Laboratory Results - last 24 hr 10/20/22 10/20/22 10/20/22 14:05 14:08 16:14 WBC 4.36 L RBC 4.65 L Hgb 14.4 Hct 42.3 MCV 91.0 MCH 31.0 MCHC 34.0 RDW Std Deviation 46.3 RDW Coeff of Meche 13.8 Plt Count 134 MPV 10.3 Immature Gran % (Auto) 0.0 Neut % (Auto) 54.7 Lymph % (Auto) 31.0 [place] % (Auto) 9.2 Eos % (Auto) 4.6 Baso % (Auto) 0.5 Neut # (Auto) 2.39 Lymph # (Auto) 1.35 [place] # (Auto) 0.40 Eos # (Auto) 0.20 Baso # (Auto) 0.02 Immature Gran # (Auto) 0.00 L Sodium 140 Potassium 3.8 Chloride 106 Carbon Dioxide 29 Anion Gap 5 BUN 19 Creatinine 1.36 Est Cr Clr Drug Dosing 40.6 Est GFR ( Amer) 56.6 Est GFR (Non-Af Amer) 48.8 BUN/Creatinine Ratio 14.0 Glucose 124 H Calcium 9.4 Total Bilirubin 0.5 AST 22 ALT 18 Alkaline Phosphatase 62 Troponin I High Sens 5.7 Total Protein 6.9 Albumin 4.3 Globulin 2.6 Albumin/Globulin Ratio 1.7 Urine Color Urine Appearance Urine pH Ur Specific [place] Urine Protein Urine Glucose (UA) Urine Ketones Urine Blood Urine Nitrite Urine Bilirubin Urine Urobilinogen Ur Leukocyte Esterase SARS-CoV-2, RNA, NAAT NEGATIVE 10/20/22 18:33 WBC RBC Hgb Hct MCV MCH MCHC RDW Std Deviation RDW Coeff of Meche Plt Count MPV Immature Gran % (Auto) Neut % (Auto) Lymph % (Auto) [place] % (Auto) Eos % (Auto) Baso % (Auto) Neut # (Auto) Lymph # (Auto) [place] # (Auto) Eos # (Auto) Baso # (Auto) Immature Gran # (Auto) Sodium Potassium Chloride Carbon Dioxide Anion Gap BUN Creatinine Est Cr Clr Drug Dosing Est GFR ( Amer) Est GFR (Non-Af Amer) BUN/Creatinine Ratio Glucose Calcium Total Bilirubin AST ALT Alkaline Phosphatase Troponin I High Sens Total Protein Albumin Globulin Albumin/Globulin Ratio Urine Color Yellow Urine Appearance Clear Urine pH 7.0 Ur Specific [place] 1.010 Urine Protein Negative Urine Glucose (UA) Negative Urine Ketones Negative Urine Blood Negative Urine Nitrite Negative Urine Bilirubin Negative Urine Urobilinogen Negative Ur Leukocyte Esterase Negative SARS-CoV-2, RNA, NAAT Diagnostic Findings Chest X-Ray 10/20/22 14:01 XR chest 1V portable CLINICAL HISTORY: Hypertension. COMPARISON STUDY: Chest CT May 18, 2017. Chest radiograph September 06, 2019. FINDINGS: Lung volumes are normal. Lungs are clear. There is no pneumothorax or pleural effusion. Cardiac size is stable. Mediastinal contours are normal. There is no evidence for pulmonary edema. IMPRESSION: No acute cardiopulmonary findings. ACT 112: Negative or not required by law. Electronically signed by: Efren Lazo M.D. 10/20/2022 3:06 PM EKG - my reading - NSR, RBBB, no ST changes Code Status & VTE Plan Code Status full code PG Care Time/CCT Total # of Minutes Spent Total Time Spent with Patient: Total time spent is greater than 50% in coordination of care (as documented) at patient's floor/unit and/or counseling patient: Coding Level of Care Code 60374 INT INP/OBS CARE 2/55MIN Diagnoses Hypertensive urgency I16.0 PAF (paroxysmal atrial fibrillation) I48.0 CAD (coronary artery disease) I25.10 Chronic kidney disease, stage 3a N18.3 Dyslipidemia E78.5 Acute left eye pain H57.12
[2022-10-20] MEDS ORDERED: amLODIPine BESYLATE 5 MG TAB PO STA (17:44)
[2022-10-20 19:09] LABS: Appearance Urine Clear (Clear); Bilirubin Urine Negative (Negative); Blood Urine Negative (Negative); Color Urine Yellow; Glucose Urine UA Negative (Negative); Ketones Urine Negative (Negative); Leukocyte Esterase Urine Negative (Negative); Nitrite Urine Negative (Negative); Protein Urine Negative (Negative); Urobilinogen Urine Negative (Negative)
[2022-10-20] MEDS ORDERED: NITROGLYCERIN SL 0.4 MG/TAB TAB SL PRN (19:36)
[2022-10-20] MEDS ORDERED: ONDANSETRON INJ 2 MG/ML 2 ML VIAL IV PRN (19:36)
[2022-10-20] MEDS ORDERED: ACETAMINOPHEN 325 MG TAB PO PRN (19:36)
[2022-10-20] MEDS ORDERED: hydrALAZINE HCL 20 MG/ML VIAL IV PRN (19:36)
[2022-10-20] MEDS: METOPROLOL SUCC 25MG EXT REL TAB PO SCH (20:57)
[2022-10-20] MEDS: ASPIRIN 81 MG ECTAB PO SCH (20:58)
[2022-10-21 07:26] LABS: BUN Creatinine Ratio 16.4 (10-20); Creatinine Clr Calc Pharmacy 42.5 ml/min; Est GFR (African American) 60.9 ml/min; Est GFR (Non-African American) 52.5 ml/min; Potassium 3.8 mmol/L (3.5-5.1)
[2022-10-21] MEDS: ASPIRIN 81 MG ECTAB PO SCH (07:35)
--- NOTE | 2022-10-21 14:18 | XCELERA ---
[id number]
[2022-10-21] MEDS ORDERED: TAMSULOSIN HCL 0.4 MG CAP PO ONE (17:15)
--- NOTE | 2022-10-21 19:50 | Hospitalist Progress Note ---
Date of Service October 21, 2022 Assessment & Plan (1) Hypertensive urgency: Plan: Much improved s/p resumption of metoprolol succinate, 1 dose of norvasc 5mg last pm, and 1 dose of IV hydralazine. SBPs <150 since then. Cont metoprolol succ. In light of probable BPH will use flomax; will not restart amlodipine. Watch overnight to trend BPs on combination of BB + alpha pavithra. Echo wnl. No end-organ symptoms. (2) PAF (paroxysmal atrial fibrillation): Plan: No PAF overnight. No documented PAF since 2019. He is NOT on chronic anticoagulation. Cont beta pavithra. (3) CAD (coronary artery disease): Plan: Despite #1 no current or recent ischemic symptoms. Continue BB. Continue aspirin. Previous LDLs have been >100 - he states statins made him feel poorly, but he is willing to try 1 again at some point. HS troponin negative. (4) Chronic kidney disease, stage 3a: Plan: Baseline CrCl about 40. BMP today stable. (5) Dyslipidemia: Plan: Previous LDLs on lipid profiles have been 140 or higher over the last 5-6 years. In light of CAD should be on statin therapy. see above. (6) Acute left eye pain: Plan: Saw his eye physician yesterday. Was placed on steroid drops for such. He does have evidence of subconjunctival hemorrhage which is benign & self- limiting. By pt's report his ocular pressures & retina were wnl. Steroid drops were sent into his pharmacy for him. Can start this tomorrow am upon d/c. Plan observe overnight home tomorrow if BPs reasonably controlled Admission and Anticipated Discharge Date Admission Date: October 20, 2022 Subjective patient feeling well offers no c/o chest pain, dyspnea, MOSES, palpitations no recurrent headache eating well BPs have improved very nicely overnight mainly with PO meds but also 1 dose IV hydralazine tele wnl echo returned with normal EF left eye discomfort is improved Review of Systems Review of Systems: gen - good energy, appetite wnl cv - no orthopnea pulm - no cough GI - no N/V Physical Exam Physical Exam: gen - NAD, pleasant, a/o x 3 eye - subconjunctival hemorrhage medial left eye improved HENT - MMM neck - no JVD heart - RRR, s1 s2, no murmur lungs - mild fine dry bibasilar rales, otherwise CTA b/l abd - soft NT ND BS+ ext - no edema, pulses 2+ b/l Results & Data Results & Data ([facility]) Vital Signs (Past 12 Hours) Vital Signs Temp Pulse Pulse Resp BP Pulse Ox O2 Del Method 10/21/22 15:32 61 10/21/22 15:27 37.0 C 66 18 146/80 H 95 Room Air 10/21/22 11:27 37 C 61 18 146/64 H 95 Room Air 10/21/22 08:04 36.8 C 57 L 20 130/84 98 Room Air Laboratory Results Laboratory Results - last 24 hr 10/21/22 10/21/22 06:37 06:37 Sodium 140 Potassium 3.8 Chloride 107 Carbon Dioxide 27 Anion Gap 6 BUN 21 Creatinine 1.28 Est Cr Clr Drug Dosing 42.5 Est GFR ( Amer) 60.9 Est GFR (Non-Af Amer) 52.5 BUN/Creatinine Ratio 16.4 Glucose 107 H Calcium 9.0 TSH 3.686 Diagnostic Findings echo - EF 60-65%, no WMA, no LVH PG Care Time/CCT Total # of Minutes Spent Total Time Spent with Patient: Total time spent is greater than 50% in coordination of care (as documented) at patient's floor/unit and/or counseling patient: Coding Level of Care Code 64472 SUB INP/OBS CARE 2/35MIN Diagnoses Hypertensive urgency I16.0 PAF (paroxysmal atrial fibrillation) I48.0 CAD (coronary artery disease) I25.10 Chronic kidney disease, stage 3a N18.3 Dyslipidemia E78.5 Acute left eye pain H57.12
[2022-10-21] MEDS: METOPROLOL SUCC 25MG EXT REL TAB PO SCH (20:37)
[2022-10-22] MEDS: ASPIRIN 81 MG ECTAB PO SCH (08:43)
[2022-10-22] MEDS ORDERED: TAMSULOSIN HCL 0.4 MG CAP PO SCH (09:00)
--- NOTE | 2022-10-22 11:55 | Discharge Summary ---
Date of Service date of admission - October 20, 2022 date of discharge - October 22, 2022 Admission HPI Per Admitting Provider 82yo male with history of paroxysmal a.fib, CAD s/p CO with stent placement, and hyperlipidemia presents from his local eye physician's office due to markedly elevated blood pressure. The patient reports having had mild frontal headaches for a few days as well as mild left eye pain for a day or two. He went to [facility] today to have the eye evaluated. By his report his ocular pressures were normal, and he was told that his retina was normal. He was prescribed a steroid eye drop for the left eye. While at the visit he had his blood pressure checked and the systolic was >200. He was advised to report to the ER for evaluation. During my assessment he states his headache has started to improve. He was given IV lopressor 5mg x 1 prior to my arrival and his SBP improved to ~190. He denies ANY recent chest pain, dyspnea, focal neurological deficits, or other changes in his health. He admits to taking himself off his metoprolol about 1 month ago stating he felt that he didn't need it any longer. Denies any prior diagnosis of HTN, stating "my blood pressure was always good." He follows with [facility] in [place] but has not seen them in over a year. Last echocardiogram was ~2 years ago to his recollection. Principal Diagnosis Hypertensive Urgency Noncompliance Discharge Exam gen - NAD, pleasant, a/o x 3 eye - subconjunctival hemorrhage medial left eye improved HENT - MMM neck - no JVD heart - RRR, s1 s2, no murmur lungs - mild fine dry bibasilar rales, otherwise CTA b/l abd - soft NT ND BS+ ext - no edema, pulses 2+ b/l Discharge Data Allergies Allergy/AdvReac Type Severity Reaction Status Date / Time theophylline AdvReac Intermediate HIGH Verified 10/20/22 16:40 BP,TACHYCARDIA Procedures Performed Echocardiogram - Ordered Studies Chest X-Ray 10/20/22 14:01 XR chest 1V portable CLINICAL HISTORY: Hypertension. COMPARISON STUDY: Chest CT May 18, 2017. Chest radiograph September 06, 2019. FINDINGS: Lung volumes are normal. Lungs are clear. There is no pneumothorax or pleural effusion. Cardiac size is stable. Mediastinal contours are normal. There is no evidence for pulmonary edema. IMPRESSION: No acute cardiopulmonary findings. ACT 112: Negative or not required by law. Electronically signed by: Efren Lazo M.D. 10/20/2022 3:06 PM Hospital Course (1) Hypertensive urgency: Peak systolic BP was 230 at time of ER presentation. He never had chest pain, severe headache, dyspnea, dyspnea on exertion or any blood work abnormalities to suggest end-organ damage or coronary ischemia. Much improved BP control s/p resumption of metoprolol succinate 25mg daily along with institution of tamsulosin 0.4mg daily (this was selected due to probable BPH along with his HTN). Systolic BPs on the above dual therapy were in the 150s by time of discharge. Diastolics were <90. Echo was wnl with preserved EF and no LV wall motion abnormalities. He was asked to purchase a BP cuff for home use, check his BPs twice daily, and follow-up with his PCP within 5 days of discharge. I suspect the cause of his HTN Urgency was noncompliance (he had stopped his metoprolol about 1 month prior to this admission), pain (had several days of left eye pain), dietary indiscretion, and perhaps untreated RENETTA (records indicate a past h/o RENETTA). (2) PAF (paroxysmal atrial fibrillation): No documented PAF since 2019. He is NOT on chronic anticoagulation. Cont beta pavithra (metoprolol succinate 25mg daily --- his prior 50mg dose was not used as he had bradycardia in the 50s with just 25mg). Telemetry while here showed no a.fib. (3) CAD (coronary artery disease): Despite #1 no current or recent ischemic symptoms. Resume metoprolol succinate. Restart aspirin 81mg daily. Previous LDLs have been >100 - he states statins made him feel poorly, but he is willing to try one again at some point. I asked him to follow-up with his PCP to discuss a re-trial of statin therapy. HS troponin was negative despite #1. A refill on SL nitroglycerin for emergency use was given. (4) Chronic kidney disease, stage 3a: Baseline CrCl about 40. Baseline Cr 1.2-1.3. Kidney function was similar while here. (5) Dyslipidemia: Previous LDLs on lipid profiles have been 140 or higher over the last 5-6 years. In light of CAD should be on statin therapy. see discussion above. (6) Acute left eye pain: The patient saw his eye provider on the day of presentation. In fact, it was his eye provider who had discovered the markedly elevated BPs and referred him to the ER. He had presented to his eye provider due to mild left eye pain and injection. He was placed on steroid drops for such. While here it appeared he had evidence of subconjunctival hemorrhage. This improved in appearance during his 48 hour stay. He never had complaints of visual change. By pt's report his ocular pressures & retina were wnl at his eye provider's office. I asked Mr Devries to call his eye provider's office shortly after discharge to initiate a follow-up appointment. He will start the eye drops upon return home. (7) BPH (benign prostatic hyperplasia): Suspected. Patient reported nocturia and frequency. u/a was completely normal while here. He is not a diabetic and glucose levels here were wnl. He was started on flomax once daily. I asked him to f/u with his PCP to have BUZZ to check the prostate, etc. Total Time Total Time Spent Total Time Spent (In Minutes): 40 Discharge Plan Discharge Items Patient Disposition: Home - Self-Care Reason For Visit: UNCONTROLLED HYPERTENSION Discharge Diagnosis: 1. Uncontrolled hypertension - improved 2. Suspected BPH (enlarged prostate) 3. Coronary artery disease 4. Prior h/o atrial fibrillation - none seen while here 5. Left eye pain - improved Activity: Resume your previous activity Non-emergency contact: Primary Care Provider Call non-emergency contact if: you have any medication questions and your symptoms worsen Follow-up/Referrals: Law Fields MD [Primary Care Provider] - (5 days for f/u of blood pressure ) Kelsie Gutiérrez OD [Outside Practitioners] - (please call Dr Gutiérrez for follow-up of left eye problem) Diet: Heart Healthy Addtl Attending Provider Instructions: Mr Devries, You were hospitalized due to markedly elevated blood pressures. Initially your systolic blood pressure ("Top" number) was in the 220-230 range. Your blood pressures improved nicely over your stay with resuming your metoprolol and adding tamsulosin ("flomax"). You had no evidence of heart attack while here. Your echocardiogram was normal. Your heart monitoring showed no atrial fibrillation. Recommendations -- 1. metoprolol succinate 25mg once daily at bedtime - first dose tonight; prescription sent to [facility] * this pill is for your heart and your blood pressure 2. tamsulosin 0.4mg once daily each morning - first dose tomorrow AM; prescription sent to [facility] * this pill is for blood pressure as well as presumed enlarged prostate 3. I have refilled your nitroglycerin tablets to be used as needed for any chest pain; the shelf-life is 1 year of a fresh bottle of nitro 4. RESUME your baby aspirin 81mg daily 5. please purchase a blood pressure automatic machine from [facility]. Pick one that goes around the upper portion of the arm. Check your blood pressures twice daily each day at home. Write the numbers down in a notebook and show these to Dr Mendoza. If your blood pressures continue to be high she may have to add another blood pressure medication. 6. See "DASH" diet handout. This diet has been shown to reduce blood pressure and is a nice, heart friendly diet to follow for overall good health. 7. Please talk to Dr Mendoza about resuming a cholesterol medication for your high cholesterol. Most people who have had heart attacks should be on cholesterol (statin) drugs for their cholesterol. 8. I suspect your frequent night-time urination is from enlarged prostate (known as "BPH"). Please talk to Dr Mendoza about this issue. Your urine culture and urinalysis were completely normal (no infection of the urine found). You could have the beginnings of pre-diabetes (high blood sugars) which can also lead to frequent urination. Dr Mendoza can do a formal diabetes screening on you with future blood work. 9. Follow any previous instructions regarding the eye drops for your left eye as given by Dr Gutiérrez. Follow-up - see Dr Mendoza within 5 days Follow-up - with Dr Gutiérrez, eye provider, as directed Return to [facility] if - * you are getting systolic blood pressure readings consistently >185 at home (systolic number is the "top" number) * you have episodes of chest pain * you have to use nitroglycerin tablets * you are short of breath * you have severe headaches * any other concerns It was our pleasure to care for you! Dr Shen Pending Studies at Discharge: No Stand-Alone Forms: [facility] [employer], Smoking Cessation Medications and DC Order Prescriptions: New tamsulosin 0.4 mg Capsule 0.4 mg PO QAM Qty: 30 5RF Continued aspirin [John Low Dose Aspirin] 81 mg tablet,delayed release (DR/EC) 81 mg PO DAILY Qty: 90 3RF Rx Instructions: PER PT "STOPPED TAKING ABOUT A MONTH AGO". LAST FILLED 02/06/22 FOR 90 DAYS/90 TABS. nitroglycerin 0.4 mg tablet, sublingual 0.4 mg SL Q5M PRN (Reason: chest pain) Qty: 1 0RF Rx Instructions: max 3 tablets in 15 minutes. Changed metoprolol succinate 25 mg tablet extended release 24 hr 25 mg PO DAILY Qty: 30 5RF Rx Instructions: PER PT "STOPPED TAKING ABOUT A MONTH AGO". LAST FILLED 11/02/21 FOR 90 DAYS/180 TABS. Discharge Orders: Discharge Order (Routine); Ordered 10/22/22 Ordered By: Seng Choe/Other Patient Handouts: DASH Plan Eat Heart Healthy Food Admission Data Admit Date/Time: 10/20/22 17:16 Attending Provider: Seng Shen Admit Provider: Seng Shen Primary Care Provider: Law Fields V. Other Providers: Stephen Amaral Other Interventions: Discharge Summary Assessment (RN) Last Done: 10/22/22 11:57 Coding Level of Care Code 52843 INP/OBS DISCH >30 MIN Diagnoses Hypertensive urgency I16.0 PAF (paroxysmal atrial fibrillation) I48.0 CAD (coronary artery disease) I25.10 Chronic kidney disease, stage 3a N18.3 Dyslipidemia E78.5 Acute left eye pain H57.12 BPH (benign prostatic hyperplasia) N40.0
== END 2022-10-22 12:44 | disposition home or self-care (01) ==
LOC: ED 13:35 → 2E 13:35

== ENCOUNTER 2024-03-21 03:51 | Inpatient (IN) ==
[2024-03-21 04:25] LABS: Basophils # (auto) 0.05 K/uL (0.00-0.20); Basophils % (auto) 0.8 %; Eosinophils # (auto) 0.15 K/uL (0.00-0.50); Eosinophils % (auto) 2.3 %; Hematocrit (blood only) 40.9 % (42.0-52.0); Hemoglobin 14.4 g/dl (14.0-18.0); Immature Granulocytes # (auto) 0.02 K/uL (0.01-0.20); Immature Granulocytes % (auto) 0.3 %; Lymphocytes % (auto) 33.8 %; Mean Corpuscular Hemoglobin 29.7 pg (25.0-34.0); Mean Corpuscular Hgb Conc 35.2 g/dL (32.0-36.0); Mean Corpuscular Volume 84.3 fL (80.0-100.0); Monocytes # (auto) 0.56 K/uL (0.11-0.59); Monocytes % (auto) 8.6 %; Neutrophils # (auto) 3.53 K/uL (1.40-6.50); Neutrophils % (auto) 54.2 %; Platelet Count 165 K/uL (130-400); RDW Coefficient of Variation 13.3 % (11.5-14.5); RDW Standard Deviation 41.5 fL (36.4-46.3); Red Blood Count 4.85 M/uL (4.70-6.10); White Blood Count 6.51 K/ul (4.8-10.8)
[2024-03-21 04:39] LABS: Albumin Globulin Ratio 1.9 (0.9-2); Albumin Level 4.5 gm/dl (3.4-5.0); BUN Creatinine Ratio 16.5 (10-20); Bilirubin,Total 0.4 mg/dl (0.2-1.0); Calcium 9.7 mg/dl (8.6-10.3); Creatinine Clr Calc Pharmacy 24.4 ml/min; Est GFR (African American) 31.7 ml/min; Est GFR (Non-African American) 27.4 ml/min; Globulin 2.4 gm/dl (2.5-4.0); Magnesium 2.2 mg/dl (1.7-2.4); Potassium 3.2 mmol/L (3.5-5.1); Total Protein 6.9 gm/dl (6.0-8.3)
[2024-03-21] MEDS: METOPROLOL TARTRATE 1 MG/ML VIAL IV STA (04:40)
[2024-03-21] MEDS: MAGNESIUM SULFATE / D5W 1 GM/100 ML BAG IV SCH (04:40)
[2024-03-21 04:45] LABS: Troponin I High Sensitivity 9.5 pg/ml (0-20)
--- NOTE | 2024-03-21 06:00 | Emergency Department Note ---
Impression & Plan Atrial fibrillation with rapid ventricular response, Sinus pause ED Provider Note NAME: MANA PADILLA AGE: 83 SEX: M : 1940 ARRIVES VIA: Walk-In INFORMANT: Patient, ED PROVIDER(S): Pauline Almaraz MD CHIEF COMPLAINT: A-fib HPI: This is a 83-year-old male presenting for suspected A-fib. Patient states that he woke up at 1:30 in the morning with feelings of heart racing sensation. He notes a history of A-fib and takes Eliquis daily. He notes that he is woken up multiple times throughout the past few days with similar symptoms. He notes by the time he wakes up in the morning however he has no symptoms and feels like he is in sinus rhythm. Tonight he was having persistent symptoms. He denies any chest pain, shortness of breath, fever or chills. No missed doses of Eliquis. ROS: See above HPI for pertinent positives & negatives. A total of 10 systems reviewed and were otherwise negative. PHYSICAL EXAMINATION: General: resting comfortably in no acute distress Head: Normocephalic and atraumatic Eyes: Normal inspection, extraocular muscles intact Ear, nose, throat: Normal external exam Neck: Normal range of motion Respiratory: lungs clear to auscultation bilaterally Cardiovascular: Irregularly irregular rate/rhythm, no murmur GI: soft, nontender, no guarding or rebound Extremities: nontender, moves all extremities Neuro: The patient awake and alert, appropriately conversive, no focal deficits, symmetric faces Skin: Warm, dry, and intact MEDICAL DECISION MAKING: This is an 83-year-old male presenting for A-fib. Patient's EKG/monitor did reveal signs of A-fib at this time. His heart rate jumps from 80s to 120s. -ECG independently interpreted by me with atrial fibrillation, rate of 96, normal axis, normal QRS, normal QTc, no ST segment elevations consistent with STEMI criteria -Patient given IV metoprolol as he is on this at home. I did discuss cardioversion with the patient however he declines this -Patient given 5 mg IV metoprolol and had been stable with heart rates however still between 80 and 110. -Patient on expected and significantly long sinus pause for about 10 seconds. He was symptomatic during this time he felt lightheaded with a headache. -Patient spontaneously regained atrial fibrillation rhythm. Pads were placed with crash cart in the room at this time. Patient remains asymptomatic at this time. -Will continue to watch but will require admission at this time. -Labs reviewed showing no leukocytosis or anemia. Electrolytes show slight hypokalemia, elevated creatinine to 2.18 otherwise. -Discussed with Dr. Bran for admission -Patient agreed to sinus rhythm later observation in the ER Differential diagnosis: A-fib, SVT, tachydysrhythmia, tachybradycardia syndrome ER treatment provided: See below Diagnostics interpreted by me: ECG: ECG independently interpreted by me with A-fib with RVR, rate of 102, right bundle branch block, left anterior fascicular block normal QTc, no ST segment elevations consistent with STEMI criteria Cardiac Monitoring: An order was placed for continuous cardiac monitoring. The monitor shows a rate of 87 with atrial fibrillation rhythm. Laboratory studies: As stated above and show below. Imaging studies: See below. Critical Care Note: I have personally spent 35 minutes of critical care time in the direct management of this patient. This includes bedside care, interpretation of diagnostic studies, and testing, discussion with consultants, patient, and family members, and other required patient management activities. This 35 minutes is in excess of all separately billable procedures. Past Med/Surg History Problem List (Updated 03/22/24 @ 05:48 by Pauline Almaraz MD) Sinus pause (Acute) Paroxysmal atrial fibrillation with conversion pauses Afib (12/18/13) PAROXYSMAL - 2018 Sinus bradycardia Sinus pause CKD (chronic kidney disease) stage 4, GFR 15-29 ml/min Atrial fibrillation with rapid ventricular response (Acute) Hypertensive urgency Renal mass, left CT scan 08/05/2023 Kidney lesion, [place], right US - 08/01/2023 CKD (chronic kidney disease) Hypertension (Acute) Dyslipidemia Tachy-chris syndrome Obstructive sleep apnea (Acute) Hearing loss (Acute) Bradycardia (Acute) Abnormal finding on thyroid function test (Acute) AF (paroxysmal atrial fibrillation) (Acute) CAD (coronary artery disease) Stented coronary artery Head ache (Acute) Health care maintenance BPH (benign prostatic hyperplasia) RBBB (right bundle branch block with left anterior fascicular block) Medical History Exertional rhabdomyolysis Acute kidney injury superimposed on CKD Nonadherence to medication Acute left eye pain PAF (paroxysmal atrial fibrillation) Anticoagulant long-term use Blood in urine Diarrhea Rectal bleeding CAD (coronary artery disease) Chronic kidney disease, stage 3a Presence of stent in left circumflex coronary artery Anxiety disorder due to medical condition Hyperlipidemia Shortness of breath on exertion Sleep disturbance Thrombocytopenia Benign paroxysmal positional vertigo Surgical History S/P tonsillectomy S/P knee surgery S/P appendectomy Family History Sister Hypertension Hypothyroidism Mother Leukemia Father Myocardial infarction Uncle Myocardial infarction Denies family history of Ovarian cancer Prostate cancer Breast cancer Lung cancer Colorectal cancer Stroke Social History Smoking Status: Never smoker Second Hand Exposure: No; Do You Dip or Chew Tobacco: No; Hx Alcohol Use: No Hx Substance Use: No Preferred Language: Irish Communication Ability: Effective Visual Impairment: No Limitations Hearing Ability: Normal Blood Donor Recruiter Required: No Beliefs That Will Affect Care: None marital status: Single Current Living Situation: Alone Current Living Situation Comment: apartment current occupational status: 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 [employer] 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 Safe at Home: Yes Childhood Exposure to Second-Hand Smoke: No Dental Care, Regularly: No Physical Activity Frequency: Does not Exercise Seatbelt Use: always Sunscreen Use: No Assistive Devices: Glasses Allergies Allergies Allergy/AdvReac Type Severity Reaction Status Date / Time theophylline AdvReac Intermediate HIGH Verified 03/06/24 11:26 BP,TACHYCARDIA Home Meds Previous Rx's Medication Instructions Recorded metoprolol succinate 50 mg 50 mg PO DAILY #90 tabs 07/12/23 tablet,extended release 24 hr apixaban 2.5 mg tablet (Eliquis) 2.5 mg PO BID #180 tabs 10/17/23 amlodipine 10 mg tablet 10 mg PO DAILY #30 tabs 03/01/24 doxazosin 2 mg tablet 2 mg PO DAILY #90 tabs 03/15/24 Results & Data (ED) Vital Signs Vital Signs - 24 hr 03/21/24 05:54 03/21/24 06:00 03/21/24 06:00 Pulse Rate 52 L 49 L 47 L Pulse Rate from SpO2 Sensor 51 L 49 L Respiratory Rate 17 17 Blood Pressure 114/92 123/73 Blood Pressure Mean 89 Pulse Oximetry 95 94 Oxygen Delivery Method Room Air 03/21/24 06:01 Pulse Rate 49 L Pulse Rate from SpO2 Sensor Respiratory Rate Blood Pressure Blood Pressure Mean Pulse Oximetry Oxygen Delivery Method Laboratory Data 03/21/24 04:05 03/21/24 04:05 Lab Results 03/21/24 Range/Units 04:05 WBC 6.51 (4.8-10.8) K/ul RBC 4.85 (4.70-6.10) M/uL Hgb 14.4 (14.0-18.0) g/dl Hct 40.9 L (42.0-52.0) % MCV 84.3 (80.0-100.0) fL MCH 29.7 (25.0-34.0) pg MCHC 35.2 (32.0-36.0) g/dL RDW Std Deviation 41.5 (36.4-46.3) fL RDW Coeff of Meche 13.3 (11.5-14.5) % Plt Count 165 (130-400) K/uL MPV 10.0 (9.4-12.4) fL Immature Gran % (Auto) 0.3 % Neut % (Auto) 54.2 % Lymph % (Auto) 33.8 % [place] % (Auto) 8.6 % Eos % (Auto) 2.3 % Baso % (Auto) 0.8 % Neut # (Auto) 3.53 (1.40-6.50) K/uL Lymph # (Auto) 2.20 (1.20-3.40) K/uL [place] # (Auto) 0.56 (0.11-0.59) K/uL Eos # (Auto) 0.15 (0.00-0.50) K/uL Baso # (Auto) 0.05 (0.00-0.20) K/uL Immature Gran # (Auto) 0.02 (0.01-0.20) K/uL Sodium 139 (136-145) mmol/L Potassium 3.2 L (3.5-5.1) mmol/L Chloride 100 (98-107) mmol/L Carbon Dioxide 31 (21-32) mmol/L Anion Gap 8 (3-11) BUN 36 H (6-23) mg/dl Creatinine 2.18 H (0.6-1.4) mg/dl Est Cr Clr Drug Dosing 24.4 ml/min Est GFR ( Amer) 31.7 ml/min Est GFR (Non-Af Amer) 27.4 ml/min BUN/Creatinine Ratio 16.5 (10-20) Glucose 120 H (70-99(Fasting)) mg/dl Calcium 9.7 (8.6-10.3) mg/dl Magnesium 2.2 (1.7-2.4) mg/dl Total Bilirubin 0.4 (0.2-1.0) mg/dl AST 26 (13-39) U/L ALT 21 (7-52) U/L Alkaline Phosphatase 60 (34-104) U/L Troponin I High Sens 9.5 (0-20) pg/ml Total Protein 6.9 (6.0-8.3) gm/dl Albumin 4.5 (3.4-5.0) gm/dl Globulin 2.4 L (2.5-4.0) gm/dl Albumin/Globulin Ratio 1.9 (0.9-2) Administered Medications Heparin Sodium/Dextrose (Heparin Sodium/Dextrose) 25,000 units in 500 mls @ 23 mls/hr IV .[id number] [facility]; Protocol Stop: 04/20/24 18:14 Last Admin: 03/21/24 23:41 Dose: 1,150 units/hr, 23 mls/hr Documented By: AZUL Co-signed By: DALE Discontinued Medications Atropine Sulfate (Atropine Sulfate 0.1 Mg/Ml 10ml Syr) Confirm Administered Dose 2 mg IV .STK-MED ONE Stop: 03/21/24 06:12 Last Admin: 03/21/24 13:28 Dose: Not Given Documented By: ELISA Heparin Sodium (Porcine) (Heparin Sod (Porcine) 1000 Unit/Ml) 5,000 units IV NOW ONE Stop: 03/21/24 18:12 Last Admin: 03/21/24 23:42 Dose: 5,000 units Documented By: AZUL Co-signed By: DALE Heparin Sodium/Dextrose (Heparin Iv Adult Wt-Based Standard W/ Initial Bolus Protocol) 1 each IV NOW STA; Protocol Stop: 03/21/24 17:56 Last Admin: 03/21/24 23:42 Dose: Not Given Documented By: AZUL Magnesium Sulfate/Dextrose (Magnesium Sulfate / D5w) 1 gm in 100 mls @ 200 mls/hr IV Q30M [facility] Stop: 03/21/24 05:15 Last Infusion: 03/21/24 05:59 Dose: Infused Documented By: Admin: 03/21/24 05:18 Dose: 200 mls/hr Documented By: Infusion: 03/21/24 05:10 Dose: Infused Documented By: Admin: 03/21/24 04:40 Dose: 200 mls/hr Documented By: CYNDIE Sodium Chloride (Nss) 1,000 mls @ 80 mls/hr IV .[id number] [facility] Stop: 03/21/24 19:52 Last Infusion: 03/21/24 21:14 Dose: Infused Documented By: Admin: 03/21/24 08:44 Dose: 80 mls/hr Documented By: ELISA Metoprolol Tartrate (Metoprolol Tartrate 1 Mg/Ml Vial) 5 mg IV NOW STA Stop: 03/21/24 04:16 Last Admin: 03/21/24 04:40 Dose: 5 mg Documented By: CYNDIE Potassium Chloride (Potassium Chloride Crtab 20 Meq Tabcr) 40 meq PO NOW STA Stop: 03/21/24 05:47 Last Admin: 03/21/24 06:13 Dose: 40 meq Documented By: ZACK Discharge Plan Visit Data Chief Complaint: Arrhythmia/Palpitations Stated Complaint: AFIB ED Provider: Pauline Almaraz Discharge Problem: Atrial fibrillation with rapid ventricular response, Sinus pause Patient Disposition: Admitted As Inpatient Discharge Instructions Interventions: ED Discharge Assessment Last Done: 03/21/24 07:23
--- NOTE | 2024-03-21 06:06 | History & Physical Report ---
Date of Service March 21, 2024 Assessment & Plan (1) Atrial fibrillation with rapid ventricular response: (2) Sinus bradycardia: (3) Sinus pause: (4) Tachy-chris syndrome: (5) CAD (coronary artery disease): (6) Obstructive sleep apnea: (7) Hypertension: (8) RBBB (right bundle branch block with left anterior fascicular block): (9) CKD (chronic kidney disease) stage 4, GFR 15-29 ml/min: (10) Afib: Plan Tachybradycardia syndrome/paroxysmal atrial fibrillation/atrial fibrillation with RVR/sinus pause status post Lopressor IV/sinus bradycardia/CAD/stented coronary artery history- Patient initially woke up around 1:30 this morning with a sensation of a rapid heart rate and felt like he was in atrial fibrillation with RVR as has happened to him in the past He had had a few episodes over the past few days, but this lasted significantly longer, and was more intense, and so presented to the ED for assessment In the ED was found to be in atrial fibrillation with RVR, with bifascicular block. He was given Lopressor 5 mg IV and magnesium sulfate 2 g IV by the ED, and short ly thereafter developed a lengthy sinus pause and near syncopal event, which he did recover from spontaneously. After the pause, he went into atrial fibrillation with a more controlled rate, and then converted to sinus bradycardia, which is his last EKG recorded. The patient will be admitted to telemetry for serial cardiac enzymes, serial EKG's, cardiac rhythm monitoring and a 2-D echocardiogram with Dopplers. Pacer pads on Hold metoprolol succinate, doxazosin, amlodipine. His last apixaban dosing was at midnight, and if no pacer or procedure is undertaken today, will need to start heparin infusion at around noon today NSS at 80 mL/h x 1 L Klor-Con 40 mEq p.o. x 1 Tylenol 1 g IV every 8 hours as needed for mild pain or fever Hold for any negative inotropes at this time Consult cardiology CKD stage IV- Creatinine on admission is 2.18, with most recent 2.49 on 03/15/2024, and otherwise at a base of 1.55 on 02/16/2024 He had the addition of chlorthalidone 25 mg daily on 03/06/2024, however, this was discontinued due to a worsening of his kidney function, with creatinine 2.49 and potassium 3.0 on 03/15/2024. At that time he had the addition of doxazosin 2 mg daily added when the chlortha lidone was discontinued Laboratories today show a creatinine 2.18, and potassium 3.2, with magnesium 2.2 As noted above will give Klor-Con 40 mEq p.o. x 1 to get a target of 4 Patient did receive magnesium sulfate 2 g IV from the ED prior to magnesium labs being available on an empiric basis NSS at 80 mL/h to x 1 L as noted above, and recheck laboratories in the a.m. History of Present Illness Chief Complaint: The patient reports that around 1:30 AM this morning he was woken up to the sensation of his heart racing. He has a history of paroxysmal atrial fibrillation, for which he takes Eliquis, with his last dose being around midnight before going to bed. He reports that he has had similar instances happen over the past few days, however, this episode lasted much longer, and was more intense. Due to persistence of the symptoms, he presents to the ED for assessment. Primary Care Provider: Law Fields MD The patient is an 83-year-old male with a past medical history including CKD stage III, hypertension, dyslipidemia, tachybradycardia syndrome, [place], bradycardia, paroxysmal atrial fibrillation, CAD, stented coronary artery, BPH, right bundle branch block and left anterior fascicular block. He presents to [facility] emergency department with symptoms of atrial fibrillation with RVR, which EKG initially showed with rate of 102. He received Lopressor 5 mg IV and magnesium sulfate 2 g IV from the ED, and within about an hour he was noted to have a lengthy sinus pause and near syncopal event. He did recover from this spontaneously to atrial fibrillation with RVR again, and then ultimately converted to sinus bradycardia with a heart rate in the upper 40s. Allergies Allergy/AdvReac Type Severity Reaction Status Date / Time theophylline AdvReac Intermediate HIGH Verified 03/06/24 11:26 BP,TACHYCARDIA Home Medications Medication Instructions Recorded Confirmed Type metoprolol succinate 50 mg 50 mg PO DAILY #90 tabs 07/12/23 03/06/24 Rx tablet,extended release 24 hr apixaban 2.5 mg tablet (Eliquis) 2.5 mg PO BID #180 tabs 10/17/23 03/06/24 Rx amlodipine 10 mg tablet 10 mg PO DAILY #30 tabs 03/01/24 03/06/24 Rx doxazosin 2 mg tablet 2 mg PO DAILY #90 tabs 03/15/24 Rx Past Med/Surg History Problem List (Updated 03/21/24 @ 06:28 by Andrew Bagley MD) Afib (12/18/13) PAROXYSMAL - 2018 Sinus bradycardia Sinus pause CKD (chronic kidney disease) stage 4, GFR 15-29 ml/min Atrial fibrillation with rapid ventricular response Hypertensive urgency Renal mass, left CT scan 08/05/2023 Kidney lesion, [place], right US - 08/01/2023 CKD (chronic kidney disease) Hypertension (Acute) Dyslipidemia Tachy-chris syndrome Obstructive sleep apnea (Acute) Hearing loss (Acute) Bradycardia (Acute) Abnormal finding on thyroid function test (Acute) AF (paroxysmal atrial fibrillation) (Acute) CAD (coronary artery disease) Stented coronary artery Head ache (Acute) Health care maintenance BPH (benign prostatic hyperplasia) RBBB (right bundle branch block with left anterior fascicular block) Medical History Exertional rhabdomyolysis Acute kidney injury superimposed on CKD Nonadherence to medication Acute left eye pain PAF (paroxysmal atrial fibrillation) Anticoagulant long-term use Blood in urine Diarrhea Rectal bleeding CAD (coronary artery disease) Chronic kidney disease, stage 3a Presence of stent in left circumflex coronary artery Anxiety disorder due to medical condition Hyperlipidemia Shortness of breath on exertion Sleep disturbance Thrombocytopenia Atrial fibrillation with rapid ventricular response Afib (12/18/13) Benign paroxysmal positional vertigo Surgical History S/P tonsillectomy S/P knee surgery S/P appendectomy Family History Sister Hypertension Hypothyroidism Mother Leukemia Father Myocardial infarction Uncle Myocardial infarction Denies family history of Ovarian cancer Prostate cancer Breast cancer Lung cancer Colorectal cancer Stroke Social History Smoking Status: Never smoker Second Hand Exposure: No; Do You Dip or Chew Tobacco: No; Hx Alcohol Use: No Hx Substance Use: No Preferred Language: Mexican Communication Ability: Effective Visual Impairment: No Limitations Hearing Ability: Normal Knit Goods Mender Required: No Beliefs That Will Affect Care: Spiritual marital status: Single Current Living Situation: Alone current occupational status: 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 Safe at Home: Yes Childhood Exposure to Second-Hand Smoke: No Dental Care, Regularly: No Physical Activity Frequency: Does not Exercise Seatbelt Use: always Sunscreen Use: No Assistive Devices: None Review of Systems Review of Systems: The patient denies shortness of breath, dyspnea on exertion, cough, lower extremity swelling, sore throat, fevers, chills, sweats, weight change, fatigue, nausea, vomiting, diarrhea , constipation, abdominal pain, pelvic pain, blood in urine or stool, dysuria, urinary frequency or urgency, lightheadedness, dizziness, headache, memory loss, rash, abnormal bruising or bleeding, imbalance, focal or generalized weakness, numbness or tingling in arms or legs, generalized arthralgias or myalgias, back or neck pain, or night sweats. The review of systems is otherwise negative other than for that already noted above, and at least 10 systems have been reviewed. Physical Exam Physical Exam: The patient is awake, alert and oriented 3, well developed and well nourished, normocephalic and atraumatic, lying in bed and in no acute distress. HEENT--PERRL, EOMI, mucous membranes and oropharynx normal. Neck--supple. No JVD. No bruits. Thyroid normal, trachea midline, no adenopathy. Heart--sinus bradycardia. No murmurs, rubs or gallops. Lungs--clear bilaterally, no respiratory distress, no accessory muscle use. Abdomen--normal bowel sounds and soft. Nontender. Nondistended, no hernias or masses, no organomegaly. Extremities--no cyanosis or clubbing. No edema. Dermatologic--normal skin turgor, normal color, no abnormal lymph nodes, no rash. Neurologic--cranial nerves II through XII grossly intact. Rheumatologic--normal range of motion. Psychiatric--normal affect. Results & Data Results & Data Vital Signs (Past 12 Hours) Vital Signs Temp Pulse Resp BP Pulse Ox O2 Del Method 03/21/24 06:01 49 L 03/21/24 06:00 49 L 114/92 03/21/24 05:04 94 Room Air 03/21/24 05:00 120/82 03/21/24 04:57 88 7 L 96 03/21/24 04:51 82 19 92 03/21/24 04:48 90 10 L 96 03/21/24 04:40 127/90 03/21/24 04:40 127/90 03/21/24 04:31 137/109 H 03/21/24 04:31 137/109 H 03/21/24 04:12 91 H 19 94 03/21/24 04:09 109 H 03/21/24 04:03 120 H 21 93 03/21/24 04:00 137/97 03/21/24 04:00 137/97 03/21/24 03:57 36.6 C 96 H 20 137/97 94 Room Air Laboratory Results Laboratory Results WBC 6.51 K/ul (4.8-10.8) 03/21/24 04:05 RBC 4.85 M/uL (4.70-6.10) 03/21/24 04:05 Hgb 14.4 g/dl (14.0-18.0) 03/21/24 04:05 Hct 40.9 % (42.0-52.0) L 03/21/24 04:05 MCV 84.3 fL (80.0-100.0) 03/21/24 04:05 MCH 29.7 pg (25.0-34.0) 03/21/24 04:05 MCHC 35.2 g/dL (32.0-36.0) 03/21/24 04:05 RDW Std Deviation 41.5 fL (36.4-46.3) 03/21/24 04:05 RDW Coeff of Meche 13.3 % (11.5-14.5) 03/21/24 04:05 Plt Count 165 K/uL (130-400) 03/21/24 04:05 MPV 10.0 fL (9.4-12.4) 03/21/24 04:05 Immature Gran % (Auto) 0.3 % 03/21/24 04:05 Neut % (Auto) 54.2 % 03/21/24 04:05 Lymph % (Auto) 33.8 % 03/21/24 04:05 [place] % (Auto) 8.6 % 03/21/24 04:05 Eos % (Auto) 2.3 % 03/21/24 04:05 Baso % (Auto) 0.8 % 03/21/24 04:05 Neut # (Auto) 3.53 K/uL (1.40-6.50) 03/21/24 04:05 Lymph # (Auto) 2.20 K/uL (1.20-3.40) 03/21/24 04:05 [place] # (Auto) 0.56 K/uL (0.11-0.59) 03/21/24 04:05 Eos # (Auto) 0.15 K/uL (0.00-0.50) 03/21/24 04:05 Baso # (Auto) 0.05 K/uL (0.00-0.20) 03/21/24 04:05 Immature Gran # (Auto) 0.02 K/uL (0.01-0.20) 03/21/24 04:05 Sodium 139 mmol/L (136-145) 03/21/24 04:05 Potassium 3.2 mmol/L (3.5-5.1) L 03/21/24 04:05 Chloride 100 mmol/L (98-107) 03/21/24 04:05 Carbon Dioxide 31 mmol/L (21-32) 03/21/24 04:05 Anion Gap 8 (3-11) 03/21/24 04:05 BUN 36 mg/dl (6-23) H 03/21/24 04:05 Creatinine 2.18 mg/dl (0.6-1.4) H 03/21/24 04:05 Est Cr Clr Drug Dosing 24.4 ml/min 03/21/24 04:05 Est GFR ( Amer) 31.7 ml/min 03/21/24 04:05 Est GFR (Non-Af Amer) 27.4 ml/min 03/21/24 04:05 BUN/Creatinine Ratio 16.5 (10-20) 03/21/24 04:05 Glucose 120 mg/dl (70-99(Fasting)) H 03/21/24 04:05 Calcium 9.7 mg/dl (8.6-10.3) 03/21/24 04:05 Magnesium 2.2 mg/dl (1.7-2.4) 03/21/24 04:05 Total Bilirubin 0.4 mg/dl (0.2-1.0) 03/21/24 04:05 AST 26 U/L (13-39) 03/21/24 04:05 ALT 21 U/L (7-52) 03/21/24 04:05 Alkaline Phosphatase 60 U/L (34-104) 03/21/24 04:05 Troponin I High Sens 9.5 pg/ml (0-20) 03/21/24 04:05 Total Protein 6.9 gm/dl (6.0-8.3) 03/21/24 04:05 Albumin 4.5 gm/dl (3.4-5.0) 03/21/24 04:05 Globulin 2.4 gm/dl (2.5-4.0) L 03/21/24 04:05 Albumin/Globulin Ratio 1.9 (0.9-2) 03/21/24 04:05 Code Status & VTE Plan Code Status Full code VTE Prophylaxis Plan VTE Prophylaxis will be ordered: Yes PG Care Time/CCT Total # of Minutes Spent Total Time Spent with Patient: Total time spent is greater than 50% in coordination of care (as documented) at patient's floor/unit and/or counseling patient: Coding Level of Care Code 55465 INT INP/OBS CARE 3/75MIN Diagnoses Atrial fibrillation with rapid ventricular response I48.91 Sinus bradycardia R00.1 Sinus pause I45.5 Tachy-chris syndrome I49.5 Coronary artery disease involving [place] coronary artery of [place] heart without angina pectoris I25.10 Coronary Disease-Associated Artery/Lesion type: [place] artery [place] vs. transplanted heart: [place] heart Associated angina: without angina Obstructive sleep apnea G47.33 Primary hypertension I10 Hypertension type: unspecified RBBB (right bundle branch block with left anterior fascicular block) I45.2 CKD (chronic kidney disease) stage 4, GFR 15-29 ml/min N18.4 Afib I48.91 (5) CAD (coronary artery disease) Coronary Disease-Associated Artery/Lesion type: [place] artery [place] vs. transplanted heart: [place] heart Associated angina: without angina Qualified Code(s): I25.10 - Atherosclerotic heart disease of [place] coronary artery without angina pectoris (7) Hypertension Hypertension type: unspecified Qualified Code(s): I10 - Essential (primary) hypertension
[2024-03-21] MEDS: POTASSIUM CHLORIDE CRTAB 20 MEQ TABCR PO STA (06:13)
[2024-03-21] MEDS ORDERED: ACETAMINOPHEN 1000 MG/100 ML IV IV PRN (07:23)
--- NOTE | 2024-03-21 08:25 | Hospitalist Progress Note ---
Date of Service March 21, 2024 Assessment & Plan (1) Tachy-chris syndrome: Plan: Tachybradycardia syndrome/paroxysmal atrial fibrillation/atrial fibrillation with RVR sinus pause and presyncope status post Lopressor IV then sinus bradycardia history of CAD/stented coronary artery ECG shows bifascicular block. Hold metoprolol succinate, doxazosin, amlodipine. His last apixaban dosing was at midnight Consult cardiology (2) CKD (chronic kidney disease) stage 4, GFR 15-29 ml/min: Plan: CKD stage IV- Creatinine on admission is 2.18, with most recent 2.49 on 03/15/2024, and otherwise at a base of 1.55 on 02/16/2024 He had the addition of chlorthalidone 25 mg daily on 03/06/2024, however, this was discontinued due to a worsening of his kidney function, with creatinine 2.49 and potassium 3.0 on 03/15/2024. At that time he had the addition of doxazosin 2 mg daily added when the chlorthalidone was discontinued Laboratories on admission show a creatinine 2.18, and potassium 3.2, with magnesium 2.2 As noted above will give Klor-Con 40 mEq p.o. x 1 to get a target of 4 Patient did receive magnesium sulfate 2 g IV from the ED prior to magnesium labs being available on an empiric basis (3) Obstructive sleep apnea: Plan: offering cpap at night Admission and Anticipated Discharge Date Admission Date: March 21, 2024 Subjective pt is not with any distress at this time is having more periods of palpitations, some dyspnea with exertion excalating of late Physical Exam Physical Exam: cardiac is regular lungs are clear abd is soft Results & Data Results & Data Vital Signs (Past 12 Hours) Vital Signs Temp Pulse Pulse Resp BP BP Pulse Ox 03/21/24 07:31 60 18 119/69 99 03/21/24 06:01 49 L 03/21/24 06:00 47 L 17 123/73 94 03/21/24 06:00 49 L 114/92 03/21/24 05:54 52 L 17 95 03/21/24 05:45 51 L 23 03/21/24 05:30 81 13 114/92 95 03/21/24 05:12 92 H 21 93 03/21/24 05:04 94 03/21/24 05:00 120/82 03/21/24 04:57 88 7 L 96 03/21/24 04:51 82 19 92 03/21/24 04:48 90 10 L 96 03/21/24 04:40 127/90 03/21/24 04:40 127/90 03/21/24 04:31 137/109 H 03/21/24 04:31 137/109 H 03/21/24 04:12 91 H 19 94 03/21/24 04:09 109 H 03/21/24 04:03 120 H 21 93 03/21/24 04:00 137/97 03/21/24 04:00 137/97 03/21/24 03:57 97.9 F 96 H 20 137/97 94 O2 Del Method 03/21/24 07:31 Room Air 03/21/24 06:01 03/21/24 06:00 Room Air 03/21/24 06:00 03/21/24 05:54 03/21/24 05:45 03/21/24 05:30 Room Air 03/21/24 05:12 03/21/24 05:04 Room Air 03/21/24 05:00 03/21/24 04:57 03/21/24 04:51 03/21/24 04:48 03/21/24 04:40 03/21/24 04:40 03/21/24 04:31 03/21/24 04:31 03/21/24 04:12 03/21/24 04:09 03/21/24 04:03 03/21/24 04:00 03/21/24 04:00 03/21/24 03:57 Room Air PG Care Time/CCT Total # of Minutes Spent Total Time Spent with Patient: Total time spent is greater than 50% in coordination of care (as documented) at patient's floor/unit and/or counseling patient: Coding Level of Care Code None Diagnoses Tachy-chris syndrome I49.5 CKD (chronic kidney disease) stage 4, GFR 15-29 ml/min N18.4 Obstructive sleep apnea G47.33
[2024-03-21] MEDS: SODIUM CHLORIDE 0.9% 1,000 ML IV SCH (08:44)
--- NOTE | 2024-03-21 12:14 | Cardiology Consultation ---
Date of Consultation March 21, 2024 Assessment & Plan (1) PAF (paroxysmal atrial fibrillation): (2) Tachy-chris syndrome: (3) Paroxysmal atrial fibrillation with conversion pauses: (4) CAD (coronary artery disease): (5) Stented coronary artery: (6) Dyslipidemia: (7) Hypertension: Plan ASSESSMENT/PLAN: 1. Paroxysmal atrial fibrillation: Symptomatic and has been having more symptoms more recently. Has history of conversion pauses and had a pause here of 5.8 seconds with symptoms, but without conversion. Findings consistent with tachybradycardia syndrome. Continue anticoagulation for stroke risk reduction. Suppressing atrial fibrillation with medication may be challenging. Avoid 1C medications given CAD. Amiodarone/dronedarone/sotalol would further worsen bradycardia, although may be possible if beta-blockers completely discontinued. Could consider A-fib ablation. Could also consider pacemaker given tachybradycardia syndrome and pauses noted during this hospitalization and May 2023. 2. Tachybradycardia syndrome: Discussion as above. Recommend electrophysiology evaluation. Spoke with Dr. Elizondo, who is agreeable to see patient tomorrow to help formulate a more definitive plan. 3. CAD s/p Cx PCI: No angina. Continue aspirin 81 mg daily indefinitely. Recommend high intensity statin therapy, but he has declined this in the past according to records. 4. Dyslipidemia: LDL significantly elevated. He has declined therapy in the outpatient setting. Recommend high intensity statin therapy if he is agreeable. 5. Hypertension: Blood pressure has been normotensive and mildly hypertensive. Can continue outpatient regimen. 6. Disposition: Electrophysiology evaluation tomorrow with Dr. Elizondo. Patient care communicated with Dr. Oliveira of the primary hospitalist service. Thank you for allowing me to participate in the care of your patient. Please call for any other questions or concerns. Sincerely, Jimmie Call M.D. History of Present Illness Reason for Consultation: Paroxysmal atrial fibrillation, symptomatic pause Requesting Physician: Dr. Oliveira Attending Physician: Andrew Bagley MD History of Present Illness Mr. Devries is a very pleasant 83-year-old gentleman with a history significant for paroxysmal atrial fibrillation, CAD s/p Cx PCI (Mar 2019 in setting of NSTEMI), hypertension, dyslipidemia, CKD, and sleep apnea. He is followed in the cardiology office by Mr. Benavides. He has had the following studies/procedures: 1. Cardiac cath March 2019 [place]: Mid LAD 50%. Proximal RCA 50%. D1 ostial 50%. Mild D2. Severe circumflex and underwent PCI. 2. Echo 10/21/2022 [place] [facility]: Normal LV size, wall motion, systolic function. EF 60 to 65%. Mild AI. Mild MR. Normal RVSP. 3. Event monitor 06/29/2023 to 07/28/2023: Predominantly sinus rhythm. Average HR 60. Paroxysmal A-fib up to 4 minutes in duration and overall A-fib burden estimated at 1%. 1 episode (skipped beat) correlated with A-fib with RVR in the 130s. 4. Echo 03/21/2024: Normal LV size, wall motion, systolic function. EF 60 to 65%. Mild AI. Mild MR. Normal RVSP. He was admitted on 03/21/2024 with A-fib with RVR. He states that 3 out of the past 4 days he had episodes of symptomatic atrial fibrillation but typically they would resolve within 90 minutes. On 03/21/2024, he got out of bed to use the restroom and when he went back to bed at approximately 1:30 AM, he developed palpitations described as fluttering sensation, consistent with prior A-fib episodes. It persisted longer than usual and he came to the emergency department. Initial ECG demonstrated A-fib at 96 bpm with RBBB and LAFB. His heart rate was intermittently elevated. He was given intravenous metoprolol 5 mg at 4:40 AM. At 5:21 AM, he had a 5.8-second pause, with symptoms of near syncope/acute lightheadedness. He denies any such symptoms at home and denies syncope. He was in his ER bed at the time of this event. At 5:43 AM, he converted to sinus rhythm. He now feels back to baseline. He had been hospitalized in May 2023 with symptomatic atrial fibrillation and spontaneously converted to sinus rhythm while hospitalized. He had a conversion pause of 4.6 seconds and another pause of 5.7 seconds before maintaining sinus bradycardia in the 50s. He denies melena, hematochezia, hematuria, or other bleeding. He denies edema, syncope, chest pain, shortness of breath, stroke or strokelike symptoms. Review of systems: As above. Review of systems otherwise negative/unremarkable. Family history: Father had CAD. Social history: Denies tobacco, alcohol, or drug abuse. He has not been . No children. Lives alone. 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 He was unaccompanied. Allergies Allergy/AdvReac Type Severity Reaction Status Date / Time theophylline AdvReac Intermediate HIGH Verified 03/06/24 11:26 BP,TACHYCARDIA Home Medications Medication Instructions Recorded Confirmed Type metoprolol succinate 50 mg 50 mg PO DAILY #90 tabs 07/12/23 03/21/24 Rx tablet,extended release 24 hr apixaban 2.5 mg tablet (Eliquis) 2.5 mg PO BID #180 tabs 10/17/23 03/21/24 Rx amlodipine 10 mg tablet 10 mg PO DAILY #30 tabs 03/01/24 03/21/24 Rx doxazosin 2 mg tablet 2 mg PO DAILY #90 tabs 03/15/24 03/21/24 Rx Problem List (Updated 03/21/24 @ 17:49 by Clifton Call MD) Paroxysmal atrial fibrillation with conversion pauses Afib (12/18/13) PAROXYSMAL - 2018 Sinus bradycardia Sinus pause CKD (chronic kidney disease) stage 4, GFR 15-29 ml/min Atrial fibrillation with rapid ventricular response Hypertensive urgency Renal mass, left CT scan 08/05/2023 Kidney lesion, blackfeet, right US - 08/01/2023 CKD (chronic kidney disease) Hypertension (Acute) Dyslipidemia Tachy-chris syndrome Obstructive sleep apnea (Acute) Hearing loss (Acute) Bradycardia (Acute) Abnormal finding on thyroid function test (Acute) AF (paroxysmal atrial fibrillation) (Acute) CAD (coronary artery disease) Stented coronary artery Head ache (Acute) Health care maintenance BPH (benign prostatic hyperplasia) RBBB (right bundle branch block with left anterior fascicular block) Patient History Medical History Exertional rhabdomyolysis Acute kidney injury superimposed on CKD Nonadherence to medication Acute left eye pain PAF (paroxysmal atrial fibrillation) Anticoagulant long-term use Blood in urine Diarrhea Rectal bleeding CAD (coronary artery disease) Chronic kidney disease, stage 3a Presence of stent in left circumflex coronary artery Anxiety disorder due to medical condition Hyperlipidemia Shortness of breath on exertion Sleep disturbance Thrombocytopenia Benign paroxysmal positional vertigo Surgical History S/P tonsillectomy S/P knee surgery S/P appendectomy Family History Sister Hypertension Hypothyroidism Mother Leukemia Father Myocardial infarction Uncle Myocardial infarction Denies family history of Ovarian cancer Prostate cancer Breast cancer Lung cancer Colorectal cancer Stroke Social History Smoking Status: Never smoker Second Hand Exposure: No; Do You Dip or Chew Tobacco: No; Hx Alcohol Use: No Hx Substance Use: No Preferred Language: Yoruba Communication Ability: Effective Visual Impairment: No Limitations Hearing Ability: Normal Program Production Specialist Required: No Beliefs That Will Affect Care: None marital status: Single Current Living Situation: Alone Current Living Situation Comment: apartment current occupational status: retired 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 Alert and oriented. HEENT: Anicteric sclera. Neck: No JVD. No bruits. Normal carotid upstrokes bilaterally. Cardiac: Regular. Normal S1-S2. No murmurs, rubs, or gallops. Pulmonary: Clear to auscultation bilaterally without wheezes, rales, or rhonchi. Abdomen: Soft, nontender, nondistended, with normoactive bowel sounds. No bruits noted. Extremities: 2+ radial pulses bilaterally. 2+ posterior tibialis pulses bilaterally. No edema or cyanosis. Psychiatric: Affect appears appropriate. Results & Data Vital Signs (Past 12 Hours) Vital Signs Temp Pulse Pulse Resp BP BP Pulse Ox 03/21/24 11:39 59 L 18 03/21/24 11:13 57 L 15 145/76 H 98 03/21/24 08:43 66 18 136/106 H 98 03/21/24 07:31 60 18 119/69 99 03/21/24 06:01 49 L 03/21/24 06:00 47 L 17 123/73 94 03/21/24 06:00 49 L 114/92 03/21/24 05:54 52 L 17 95 03/21/24 05:45 51 L 23 03/21/24 05:30 81 13 114/92 95 03/21/24 05:12 92 H 21 93 03/21/24 05:04 94 03/21/24 05:00 120/82 03/21/24 04:57 88 7 L 96 03/21/24 04:51 82 19 92 03/21/24 04:48 90 10 L 96 03/21/24 04:40 127/90 03/21/24 04:40 127/90 03/21/24 04:31 137/109 H 03/21/24 04:31 137/109 H 03/21/24 04:12 91 H 19 94 03/21/24 04:09 109 H 03/21/24 04:03 120 H 21 93 03/21/24 04:00 137/97 03/21/24 04:00 137/97 03/21/24 03:57 36.6 C 96 H 20 137/97 94 O2 Del Method 03/21/24 11:39 03/21/24 11:13 Room Air 03/21/24 08:43 Room Air 03/21/24 07:31 Room Air 03/21/24 06:01 03/21/24 06:00 Room Air 03/21/24 06:00 03/21/24 05:54 03/21/24 05:45 03/21/24 05:30 Room Air 03/21/24 05:12 03/21/24 05:04 Room Air 03/21/24 05:00 03/21/24 04:57 03/21/24 04:51 03/21/24 04:48 03/21/24 04:40 03/21/24 04:40 03/21/24 04:31 03/21/24 04:31 03/21/24 04:12 03/21/24 04:09 03/21/24 04:03 03/21/24 04:00 03/21/24 04:00 03/21/24 03:57 Room Air Laboratory Results Laboratory Results - last 24 hr 03/21/24 04:05 WBC 6.51 RBC 4.85 Hgb 14.4 Hct 40.9 L MCV 84.3 MCH 29.7 MCHC 35.2 RDW Std Deviation 41.5 RDW Coeff of [place] 13.3 Plt Count 165 MPV 10.0 Immature Gran % (Auto) 0.3 Neut % (Auto) 54.2 Lymph % (Auto) 33.8 [place] % (Auto) 8.6 Eos % (Auto) 2.3 Baso % (Auto) 0.8 Neut # (Auto) 3.53 Lymph # (Auto) 2.20 [place] # (Auto) 0.56 Eos # (Auto) 0.15 Baso # (Auto) 0.05 Immature Gran # (Auto) 0.02 Sodium 139 Potassium 3.2 L Chloride 100 Carbon Dioxide 31 Anion Gap 8 BUN 36 H Creatinine 2.18 H Est Cr Clr Drug Dosing 24.4 Est GFR ( Amer) 31.7 Est GFR (Non-Af Amer) 27.4 BUN/Creatinine Ratio 16.5 Glucose 120 H Calcium 9.7 Magnesium 2.2 Total Bilirubin 0.4 AST 26 ALT 21 Alkaline Phosphatase 60 Troponin I High Sens 9.5 Total Protein 6.9 Albumin 4.5 Globulin 2.4 L Albumin/Globulin Ratio 1.9 Diagnostic Findings ECHO 03/21/2024: 1. Normal left ventricular size and systolic function. EF 60-65%. No regional wall motion abnormalities. Mild concentric left ventricular hypertrophy. 2. Mild aortic regurgitation. 3. Mild mitral regurgitation. 4. Normal estimated right ventricular systolic pressure. 5. No significant change from prior study on 10/21/2022. Telemetry personally reviewed: 5.8-second pause at 5:21 AM on 03/21/2024 while still in atrial fibrillation. Converted to sinus rhythm at 5:43 AM and has been in sinus rhythm since. Prior to that, he was in atrial fibrillation with heart rate mostly 70s to 110s. ECGs personally reviewed: ECG 03/21/2024 at 3:59 AM: A-fib 96 bpm. RBBB. LAFB. ECG 03/21/2024 at 5:23 AM: A-fib with RVR 102 bpm. RBBB. LAFB. ECG 03/21/2024 5:51 AM: Sinus bradycardia with first-degree AV block at 50 bpm. RBBB. LAFB. Outpatient event monitor report reviewed as noted above in HPI. Labs notable for abnormal (chronic) renal function, hypokalemia, normal blood counts. Normal high-sensitivity troponin x 1. History and physical report reviewed. Medications Administered Current Inpatient Medications Acetaminophen (Acetaminophen 1000 Mg/100 Ml Iv) 1,000 mg IV Q8H PRN PRN Reason: Pain or Fever Stop: 03/24/24 07:22 Sodium Chloride (Nss) 1,000 mls @ 80 mls/hr IV .[id number] ARIEL Stop: 03/21/24 19:52 Last Admin: 03/21/24 08:44 Dose: 80 mls/hr PG Care Time/CCT Total # of Minutes Spent Total Time Spent with Patient: Total time spent is greater than 50% in coordination of care (as documented) at patient's floor/unit and/or counseling patient: Coding Level of Care Code 87087 INT INP/OBS CARE 375MIN Diagnoses PAF (paroxysmal atrial fibrillation) I48.0 Tachy-chris syndrome I49.5 Paroxysmal atrial fibrillation with conversion pauses I48.0; I49.5 Coronary artery disease involving blackfeet coronary artery of blackfeet heart without angina pectoris I25.10 Coronary Disease-Associated Artery/Lesion type: [place] artery [place] vs. transplanted heart: blackfeet heart Associated angina: without angina Stented coronary artery Z95.5 Dyslipidemia E78.5 Primary hypertension I10 Hypertension type: unspecified (4) CAD (coronary artery disease) Coronary Disease-Associated Artery/Lesion type: [place] artery [place] vs. transplanted heart: blackfeet heart Associated angina: without angina Qualified Code(s): I25.10 - Atherosclerotic heart disease of blackfeet coronary artery without angina pectoris (7) Hypertension Hypertension type: unspecified Qualified Code(s): I10 - Essential (primary) hypertension
[2024-03-21] MEDS: ATROPINE SULFATE 0.1 MG/ML 10ML SYR IV ONE (13:28)
--- NOTE | 2024-03-21 14:01 | XCELERA ---
[id number]
--- NOTE | 2024-03-21 15:40 | Electrocardiogram Report ---
Test Reason : Blood Pressure : / mmHG Vent. Rate : 050 BPM Atrial Rate : 050 BPM P-R Int : 236 ms QRS Dur : 134 ms QT Int : 488 ms P-R-T Axes : 072 -58 025 degrees QTc Int : 444 ms Sinus bradycardia with 1st degree A-V block Right bundle branch block Left anterior fascicular block Bifascicular block Abnormal ECG When compared with ECG of 21-MAR-2024 05:23, Sinus rhythm has replaced Atrial fibrillation Vent. rate has decreased BY 52 BPM Confirmed by Clifton Call ([id number] on 03/21/2024 3:40:09 PM Referred By: REFERRED SELF Confirmed By:Clifton Call
--- NOTE | 2024-03-21 15:40 | Electrocardiogram Report ---
Test Reason : Blood Pressure : / mmHG Vent. Rate : 102 BPM Atrial Rate : 000 BPM P-R Int : 000 ms QRS Dur : 132 ms QT Int : 360 ms P-R-T Axes : 000 -62 000 degrees QTc Int : 469 ms Atrial fibrillation with rapid ventricular response Right bundle branch block Left anterior fascicular block Bifascicular block Abnormal ECG When compared with ECG of 21-MAR-2024 03:59, No significant change was found Confirmed by Clifton Call ([id number] on 03/21/2024 3:39:50 PM Referred By: REFERRED SELF Confirmed By:Clifton Call
--- NOTE | 2024-03-21 15:40 | Electrocardiogram Report ---
Test Reason : Blood Pressure : / mmHG Vent. Rate : 096 BPM Atrial Rate : 000 BPM P-R Int : 000 ms QRS Dur : 126 ms QT Int : 392 ms P-R-T Axes : 000 -55 014 degrees QTc Int : 495 ms Atrial fibrillation Right bundle branch block Left anterior fascicular block Bifascicular block Abnormal ECG When compared with ECG of 16-FEB-2024 14:58, Atrial fibrillation has replaced Sinus rhythm Vent. rate has increased BY 38 BPM QT has lengthened Confirmed by Clifton Call ([id number] on 03/21/2024 3:39:40 PM Referred By: REFERRED SELF Confirmed By:Clifton Call
[2024-03-21 23:22] LABS: INR 1.1 (0.9-1.1)
[2024-03-21 23:29] LABS: ANTI-Xa, UFH(UnfractionatedHep > 1.50 IU/ml (0.3-0.7)
[2024-03-21] MEDS: HEPARIN SODIUM/DEXTROSE 25,000 UNITS/500 ML BAG IV SCH (23:41)
[2024-03-21] MEDS: HEPARIN SOD (PORCINE) 1000 UNIT/ML IV ONE (23:42)
[2024-03-21] MEDS: Heparin IV Adult Wt-Based Standard w/ INITIAL Bolus Protocol IV STA (23:42)
[2024-03-22 06:21] LABS: Basophils # (auto) 0.04 K/uL (0.00-0.20); Basophils % (auto) 0.7 %; Eosinophils # (auto) 0.21 K/uL (0.00-0.50); Eosinophils % (auto) 3.5 %; Hemoglobin 13.2 g/dl (14.0-18.0); Immature Granulocytes # (auto) 0.02 K/uL (0.01-0.20); Immature Granulocytes % (auto) 0.3 %; Lymphocytes # (auto) 1.87 K/uL (1.20-3.40); Lymphocytes % (auto) 30.9 %; Mean Corpuscular Hemoglobin 29.9 pg (25.0-34.0); Mean Corpuscular Hgb Conc 34.7 g/dL (32.0-36.0); Mean Corpuscular Volume 86.2 fL (80.0-100.0); Mean Platelet Volume 10.3 fL (9.4-12.4); Monocytes % (auto) 8.3 %; Neutrophils # (auto) 3.41 K/uL (1.40-6.50); Neutrophils % (auto) 56.3 %; Platelet Count 153 K/uL (130-400); RDW Coefficient of Variation 13.6 % (11.5-14.5); RDW Standard Deviation 42.5 fL (36.4-46.3); Red Blood Count 4.41 M/uL (4.70-6.10); White Blood Count 6.05 K/ul (4.8-10.8)
[2024-03-22 06:39] LABS: Albumin Level 3.8 gm/dl (3.4-5.0); BUN Creatinine Ratio 16.7 (10-20); Calcium 8.6 mg/dl (8.6-10.3); Creatinine Clr Calc Pharmacy 31.7 ml/min; Est GFR (African American) 43.5 ml/min; Est GFR (Non-African American) 37.5 ml/min; Magnesium 2.2 mg/dl (1.7-2.4); Phosphorus 2.6 mg/dl (2.5-4.9); Potassium 3.4 mmol/L (3.5-5.1)
[2024-03-22 07:17] LABS: ANTI-Xa, UFH(UnfractionatedHep 1.18 IU/ml (0.3-0.7)
[2024-03-22] MEDS: ASPIRIN 81 MG ECTAB PO SCH (09:20)
[2024-03-22] MEDS: amLODIPine BESYLATE 5 MG TAB PO SCH (09:20)
[2024-03-22] MEDS: POTASSIUM CHLORIDE CRTAB 20 MEQ TABCR PO SCH (09:21)
[2024-03-22] MEDS ORDERED: NEBIVOLOL 10 MG PO STA (09:43)
--- NOTE | 2024-03-22 09:54 | Cardiology Progress Note ---
Date of Service March 22, 2024 Assessment & Plan (1) PAF (paroxysmal atrial fibrillation): (2) Tachy-chris syndrome: (3) CAD (coronary artery disease): (4) Hypertension: Plan ASSESSMENT/PLAN: 1. Paroxysmal atrial fibrillation: I discussed his atrial fibrillation symptoms with him, he is very aware of the symptoms although does not have hemodynamic symptoms and is not overly bothered by them but tells me he gets worried because he knows the rhythm is not normal. He does not seem to mind having it too much, so I think a trial of rate control would be in order. I am going to add nebivolol (which is nonformulary so I hope they can give it to him here this morning) because that is a good blood pressure medication and a good rate control medication which helps support the heart rate because of its nitrous oxide pathway. I discussed other options with him including antiarrhythmic therapy (which we could use, although with his coronary artery disease our options are potentially limited although he does not have known ischemia) and ablation but he is agreeable to try rate control. I am not too concerned about the pause, he did feel it based on his description and does not recall ever having it before so if he does have worrisome pauses he should be able to tell us. 2. Tachybradycardia syndrome: I believe he does have tachybradycardia syndrome with paroxysmal atrial fibrillation with a moderate heart rate as well as sinus node dysfunction with sinus bradycardia. I did mention the possibility of a pacemaker but at this point I do not think we need to do that but we will need to keep an eye on this. 3. CAD s/p Cx PCI: He has coronary disease but probably not ischemia so we do not have to be too concerned about using antiarrhythmic drugs like flecainide but they can also lower the heart rate. We could use Multaq or amiodarone but those may also lower the heart rate. Tikosyn might be a consideration but I would not do that at this point. 4. Hypertension: Blood pressure has been somewhat high in general, it is mostly the systolic component which would be in part caused by a slow heart rate. Nebivolol is a good blood pressure medication and it may be helpful for this as well as rate control in atrial fibrillation. Admission and Anticipated Discharge Date Admission Date: March 21, 2024 Subjective He is feeling well today, he has had no further symptoms of atrial fibrillation since shortly after admission (and no atrial fibrillation on the monitor). He does recall feeling a momentary funny feeling in his head when he had the pause in the emergency room, he has never felt that before. He does not seem to have symptoms of bradycardia with no exercise limitation, no lightheadedness, dizziness or presyncope. He does not have exertional chest discomfort. He has not been having difficulties on anticoagulation. He is on reduced dose Eliquis which is correct based on his age and kidney function. Physical Exam Physical Exam: Constitutional: Alert, cooperative and in no distress. HEENT: Unremarkable Neck: No jugular venous distention, carotid pulses are normal and equal bilaterally without bruits. Pulmonary: Clear to auscultation bilaterally. Cardiac: Regular rhythm with no murmur, gallop or rub. Abdomen: Soft, nontender with normal bowel sounds. Extremities: No edema. Neurologic: No focal findings. Skin: No rash, ecchymoses or petechiae. Results & Data Vital Signs (Past 12 Hours) Vital Signs Temp Pulse Pulse Resp BP Pulse Ox O2 Del Method 03/22/24 07:42 36.6 C 57 L 18 145/82 H 96 Room Air 03/22/24 03:11 36.7 C 66 14 161/83 H 95 Room Air 03/21/24 23:54 60 03/21/24 23:19 36.6 C 66 14 153/82 H 96 Room Air Laboratory Results Coagulation 03/21/24 Range/Units 21:55 PT 12.0 (9.0-12.0) Seconds CBC 03/22/24 Range/Units 05:22 WBC 6.05 (4.8-10.8) K/ul RBC 4.41 L (4.70-6.10) M/uL Hgb 13.2 L (14.0-18.0) g/dl Hct 38.0 L (42.0-52.0) % Plt Count 153 (130-400) K/uL Neut # (Auto) 3.41 (1.40-6.50) K/uL Lymph # (Auto) 1.87 (1.20-3.40) K/uL [place] # (Auto) 0.50 (0.11-0.59) K/uL Eos # (Auto) 0.21 (0.00-0.50) K/uL Baso # (Auto) 0.04 (0.00-0.20) K/uL Comprehensive Metabolic Panel 03/22/24 Range/Units 05:22 Sodium 138 (136-145) mmol/L Potassium 3.4 L (3.5-5.1) mmol/L Chloride 103 (98-107) mmol/L Carbon Dioxide 27 (21-32) mmol/L BUN 28 H (6-23) mg/dl Creatinine 1.68 H D (0.6-1.4) mg/dl Glucose 115 H (70-99(Fasting)) mg/dl Calcium 8.6 (8.6-10.3) mg/dl Albumin 3.8 (3.4-5.0) gm/dl Intake and Output 03/21/24 03/22/24 03/22/24 22:59 06:59 14:59 Intake Total 1100 / 1350 250 / 1350 175.567 / 175.567 Output Total 250 / 1050 800 / 1050 Balance 850 / 300 -550 / 300 175.567 / 175.567 Intake: IV 1000 / 1000 175.567 / 175.567 Heparin Sodium/Dextrose 25,000 175.567 / 175.567 units In 500 ml @ 1,150 UNITS/ HR 23 mls/hr IV .[id number] [facility] Rx #:[id number] Sodium Chloride 0.9% 1,000 ml @ 1000 / 1000 80 mls/hr IV .[id number] [facility] Rx#: [id number] Oral 100 / 350 250 / 350 Output: Urine 250 / 1050 800 / 1050 Other: Weight 74.3 kg Weight Measurement Method Built in [facility] Diagnostic Findings Telemetry: Sinus bradycardia, rate consistently in the 50s to 60s, no atrial fibrillation since shortly after presentation. His heart rate in the emergency room was averaging between 100 and 120 visually so not excessively fast in atrial fibrillation. PG Care Time/CCT Total # of Minutes Spent Total Time Spent with Patient: Total time spent is greater than 50% in coordination of care (as documented) at patient's floor/unit and/or counseling patient: Coding Level of Care Code 90589 SUB INP/OBS CARE 3/50MIN Diagnoses PAF (paroxysmal atrial fibrillation) I48.0 Tachy-chris syndrome I49.5 Coronary artery disease involving [place] coronary artery of [place] heart without angina pectoris I25.10 Coronary Disease-Associated Artery/Lesion type: [place] artery Three Affiliated vs. transplanted heart: [place] heart Associated angina: without angina Primary hypertension I10 Hypertension type: unspecified (3) CAD (coronary artery disease) Coronary Disease-Associated Artery/Lesion type: [place] artery Three Affiliated vs. transplanted heart: [place] heart Associated angina: without angina Qualified Code(s): I25.10 - Atherosclerotic heart disease of [place] coronary artery without angina pectoris (4) Hypertension Hypertension type: unspecified Qualified Code(s): I10 - Essential (primary) hypertension
[2024-03-22 10:15] LABS: ANTI-Xa, UFH(UnfractionatedHep 0.79 IU/ml (0.3-0.7)
--- NOTE | 2024-03-22 17:33 | Discharge Summary ---
Discharge Summary Date of Service March 22, 2024 Principal Dx & Hospital Course #1 = Principal Diagnosis (1) Tachy-chris syndrome: Tachybradycardia syndrome/paroxysmal atrial fibrillation/atrial fibrillation with RVR sinus pause and presyncope status post Lopressor IV then sinus bradycardia history of CAD/stented coronary artery ECG shows bifascicular block. concern for tachy chris syndrome by EP replace metoprolol with nebivolol per Dr Abraham recommendation, resume amlodipine resume apixaban discussion with EP for future ablation as outpt (2) CKD (chronic kidney disease) stage 4, GFR 15-29 ml/min: CKD stage IV- improved stopping diuretic if additional blood pressure control is needed will increase nebivolol (3) Obstructive sleep apnea: Notes For Next Care Provider Patient is nebivolol may need to be increased. Blood pressure control should be with increasing nebivolol patient did have a poor response to diuretic therapy causing acute kidney injury. Admission HPI Per Admitting Provider The patient is an 83-year-old male with a past medical history including CKD stage III, hypertension, dyslipidemia, tachybradycardia syndrome, R[place], bradycardia, paroxysmal atrial fibrillation, CAD, stented coronary artery, BPH, right bundle branch block and left anterior fascicular block. He presents to the emergency department with symptoms of atrial fibrillation with RVR, which EKG initially showed with rate of 102. He received Lopressor 5 mg IV and magnesium sulfate 2 g IV from the ED, and within about an hour he was noted to have a lengthy sinus pause and near syncopal event. He did recover from this spontaneously to atrial fibrillation with RVR again, and then ultimately converted to sinus bradycardia with a heart rate in the upper 40s. Discharge Exam pt has regular rhythm lungs are clear Updated Medication List Medication Instructions Recorded Confirmed Type apixaban 2.5 mg tablet (Eliquis) 2.5 mg PO BID #180 tabs 10/17/23 03/21/24 Rx amlodipine 10 mg tablet 10 mg PO DAILY #30 tabs 03/01/24 03/21/24 Rx aspirin 81 mg tablet,delayed 81 mg PO QAM #30 tabs 03/22/24 Rx release nebivolol 5 mg tablet 5 mg PO DAILY #30 tabs 03/22/24 Rx Hospital Stay Data Consultations 03/21/24 06:28 ED Decision to Admit Stat 07/31/24 10:54 Consult Cardiology Routine 03/21/24 17:57 Consult Cardiac Electrophysiology Routine Pending Results Patient Have Any Pending Studies at Discharge: Yes Discharge Instructions Given to Patient (Per Discharging Provider) you have been recommended to start on a new medicine Nebivolol, please get this from a pharmacy and start today 03/22/24. stopping metoprolol resume your Eliquis tonight your lyme test is pending and if positive will call with follow up Total Time Total Time Spent Total Time Spent (In Minutes): It required greater than 30 minutes to prepare this patient for discharge. Coding Level of Care Code 46877 INP/OBS DISCH >30 MIN Diagnoses Tachy-chris syndrome I49.5 CKD (chronic kidney disease) stage 4, GFR 15-29 ml/min N18.4 Obstructive sleep apnea G47.33
--- NOTE | 2024-03-22 22:26 | Electrocardiogram Report ---
Test Reason : Blood Pressure : / mmHG Vent. Rate : 063 BPM Atrial Rate : 063 BPM P-R Int : 222 ms QRS Dur : 130 ms QT Int : 480 ms P-R-T Axes : 025 -50 013 degrees QTc Int : 491 ms Sinus rhythm with 1st degree A-V block Right bundle branch block Left anterior fascicular block Bifascicular block Abnormal ECG When compared with ECG of 21-MAR-2024 05:51, No significant change was found Confirmed by Clifton Call ([id number]) on 03/22/2024 10:26:03 PM Referred By: REFERRED SELF Confirmed By:Clifton Call
== END 2024-03-22 12:12 | disposition home or self-care (01) | DRG 309 ==
LOC: SUATTDRO → ED 03:51 → SUATTDRO 06:05 → EDINP 06:05 → 4W 07:23

== ENCOUNTER 2024-06-03 20:15 | Observation (INO) ==
--- NOTE | 2024-06-03 20:31 | Emergency Department Note ---
Impression & Plan Chest pain, CKD (chronic kidney disease) stage 3, GFR 30-59 ml/min ED Provider Note NAME: MANA PADILLA AGE: 83 SEX: M : 1940 ARRIVES VIA: Walk-In INFORMANT: Patient, ED PROVIDER(S): Marino Escobar MD CHIEF COMPLAINT: Chest pain MEDICAL DECISION MAKING: Patient presents due to concern for chest pain. IV was established and blood work was obtained along with an EKG. EKG without acute ischemia. Patient with a normal white count hemoglobin and platelet count. Kidney function with creatinine 1.65. Patient does have history of chronic kidney disease. Troponin negative. Urinalysis negative for obvious infection. BioFire negative. Chest x-ray does not show obvious pneumonia or pneumothorax. Given the patient reported that his symptoms felt similar but worse compared to his prior heart attack I do believe the patient would benefit from chest pain workup and observation. Patient does not have any current pain at this time. The patient was ordered. His aspirin as well as as needed nitro. I did speak the on-call hospitalist service Dr. Bran the patient was admitted to the medicine service. Discussion w/ other healthcare providers: None Prior /Outside records reviewed: None Differential diagnosis: Cardiac ischemia, aortic dissection, pulmonary embolism, pneumothorax, pneumonia, pericarditis, myocarditis, GERD, cholecystitis, pancreatitis, musculoskeletal, as well as other pathologies were considered. Diagnostics, as interpreted by me: ECG: Sinus bradycardia, first-degree AV block, rate of 55 prolonged IL, wide QRS right bundle branch block pattern, T wave inversions anteriorly. T wave inversions appear to be old from comparison March 22, 2024. Cardiac monitoring: An order was placed for continuous cardiac monitoring. The monitor shows a rate of 62 with sinus rhythm. Patient was placed on pulse oximetry Medical decision rules: Heart score Imaging studies: I informally interpreted the patient's chest x-ray does not show obvious pneumonia or pneumothorax with formal report to follow. HPI: Patient presents due to concern for chest pain. The patient reports that he had chest pain since midday today. The patient describes as left-sided nonradiating and sharp. The patient does take aspirin as well as Eliquis does have a known history of A-fib as well as prior NE. He is followed with Huang Benavides. Patient denies any exertional symptoms no nausea vomiting or diaphoresis. No abdominal pain. Patient reports he has had some associated dry cough as well as congestion for which she is taking antibiotics and other medications. Patient denies any recent travel no leg swelling or calf pain. Patient denies any prior history of DVT or PE. The patient did not take anything for symptoms today. Patient reports that this feels similar to his NE but worse. Pain is nonradiating. PAST MEDICAL HISTORY: See Below PAST SURGICAL HISTORY: See Below SOCIAL HISTORY: See Below HOME MEDICATIONS: See Below ALLERGIES: See Below VITALS: See Below PHYSICAL EXAMINATION: GENERAL: NAD, non-toxic. Wearing glasses. EYE EXAM: Normal conjunctiva. PERRL, no anisocoria and EOM's grossly intact w/o pain. OROPHARYNX: Moist mucus membranes, grossly normal dentition. NECK: Trachea midline, no stridor. Supple, no nuchal rigidity, no adenopathy, non-tender. No signs of meningismus. FROM of the neck with good chin to chest and neck extension. LUNGS: Clear to auscultation. Normal chest wall mechanics. HEART: NSR, no MRG. ABDOMEN: Abdomen soft, non-tender, no masses, no rebound or guarding. BACK: No CVA TTP. SKIN: No rashes and no bruising. UPPER EXTREMITIES: Upper extremities are grossly normal. LOWER EXTREMITIES: Grossly normal, no edema. Negative Homans' sign bilaterally. NEURO EXAM: A&O x3, cranial nerves II-XII grossly intact, normal speech, moves all 4 extremities. Past Med/Surg History Problem List (Updated 06/04/24 @ 00:50 by Marino Escobar MD) CKD (chronic kidney disease) stage 3, GFR 30-59 ml/min (Acute) Chest pain (Acute) Atypical chest pain Paroxysmal atrial fibrillation with conversion pauses Sinus bradycardia Hypertensive urgency Renal mass, left CT scan 08/05/2023 Kidney lesion, [place], right US - 08/01/2023 CKD (chronic kidney disease) Tachy-chris syndrome Obstructive sleep apnea (Acute) Hearing loss (Acute) Bradycardia (Acute) Abnormal finding on thyroid function test (Acute) AF (paroxysmal atrial fibrillation) (Acute) CAD (coronary artery disease) Head ache (Acute) Health care maintenance BPH (benign prostatic hyperplasia) Medical History CKD (chronic kidney disease) stage 4, GFR 15-29 ml/min RBBB (right bundle branch block with left anterior fascicular block) Dyslipidemia Hypertension Exertional rhabdomyolysis Acute kidney injury superimposed on CKD Nonadherence to medication Acute left eye pain Anticoagulant long-term use Blood in urine Diarrhea Rectal bleeding CAD (coronary artery disease) Chronic kidney disease, stage 3a Presence of stent in left circumflex coronary artery Anxiety disorder due to medical condition Hyperlipidemia Shortness of breath on exertion Sleep disturbance Thrombocytopenia Benign paroxysmal positional vertigo Surgical History Stented coronary artery S/P tonsillectomy S/P knee surgery right - torn meniscus S/P appendectomy Family History Sister Hypertension Hypothyroidism Mother Leukemia Father Myocardial infarction Uncle Myocardial infarction Denies family history of Ovarian cancer Prostate cancer Breast cancer Lung cancer Colorectal cancer Stroke Social History Smoking Status: Never smoker Second Hand Exposure: No; Do You Dip or Chew Tobacco: No; Hx Alcohol Use: No Hx Substance Use: No Preferred Language: Thai Communication Ability: Effective Visual Impairment: No Limitations Hearing Ability: Normal Laboratory Immunologist Required: No Beliefs That Will Affect Care: None marital status: Single Current Living Situation: Alone Current Living Situation Comment: apartment current occupational status: retired 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 Feels Safe at Home: Yes Childhood Exposure to Second-Hand Smoke: No Dental Care, Regularly: No Physical Activity Frequency: Does not Exercise Seatbelt Use: always Sunscreen Use: No Assistive Devices: Glasses Allergies Allergies Allergy/AdvReac Type Severity Reaction Status Date / Time theophylline AdvReac Intermediate HIGH Verified 06/01/24 15:36 BP,TACHYCARDIA Home Meds Previous Rx's Medication Instructions Recorded apixaban 2.5 mg tablet (Eliquis) 2.5 mg PO BID #180 tabs 10/17/23 aspirin 81 mg tablet,delayed 81 mg PO QAM #30 tabs 03/22/24 release nebivolol 5 mg tablet 5 mg PO DAILY #30 tabs 03/22/24 amlodipine 10 mg tablet 10 mg PO DAILY #30 tabs 04/19/24 doxycycline monohydrate 100 mg 100 mg PO BID 7 days #14 caps 06/01/24 capsule Results & Data (ED) Vital Signs Vital Signs - 24 hr 06/03/24 20:16 06/03/24 20:24 06/03/24 20:32 Temperature 36.3 C L Temperature Source Temporal Artery Scan Pulse Rate 59 L 63 Pulse Rate [Finger] 57 L Pulse Rhythm Pulse Rhythm [Finger] Pulse Strength [Finger] Respiratory Rate 19 18 Respiratory Effort / Characteristics Non-Labored Spontaneous Non-Labored Spontaneous Respiratory Depth Normal Normal Respiratory Pattern Blood Pressure 173/84 H Blood Pressure [Right Arm] 157/87 H Blood Pressure Mean 113 Blood Pressure Mean [Right Arm] 110 Blood Pressure Position [Right Arm] Sitting Pulse Oximetry 98 95 Oxygen Delivery Method Room Air Room Air Oxygen Flow Rate Sepsis Recent Fever Within 48 Hours No Sepsis New/Unexplained Change in Mental Status N/A Sepsis Action Taken by Nursing No Action Required 06/03/24 20:32 06/03/24 22:11 06/03/24 23:06 Temperature Temperature Source Pulse Rate 57 L Pulse Rate [Finger] 53 L 52 L Pulse Rhythm Regular Pulse Rhythm [Finger] Regular Regular Pulse Strength [Finger] Normal Normal Respiratory Rate 18 18 18 Respiratory Effort / Characteristics Non-Labored Spontaneous Non-Labored Spontaneous Respiratory Depth Normal Normal Respiratory Pattern Regular Blood Pressure Blood Pressure [Right Arm] 152/88 H 164/87 H Blood Pressure Mean Blood Pressure Mean [Right Arm] 109 112 Blood Pressure Position [Right Arm] Sitting Sitting Pulse Oximetry 95 94 93 Oxygen Delivery Method Room Air Room Air Room Air Oxygen Flow Rate Sepsis Recent Fever Within 48 Hours Sepsis New/Unexplained Change in Mental Status Sepsis Action Taken by Nursing 06/04/24 00:05 06/04/24 00:20 Temperature Temperature Source Pulse Rate 95 H 54 L Pulse Rate [Finger] Pulse Rhythm Pulse Rhythm [Finger] Pulse Strength [Finger] Respiratory Rate 18 Respiratory Effort / Characteristics Respiratory Depth Respiratory Pattern Blood Pressure 171/107 H Blood Pressure [Right Arm] Blood Pressure Mean Blood Pressure Mean [Right Arm] Blood Pressure Position [Right Arm] Pulse Oximetry 98 Oxygen Delivery Method Nasal Cannula Oxygen Flow Rate 2 Sepsis Recent Fever Within 48 Hours Sepsis New/Unexplained Change in Mental Status Sepsis Action Taken by Residential Medications Current Medication List: was personally reviewed by me Laboratory Data Attestation: I reviewed the patient's lab results. 06/03/24 20:40 06/03/24 20:40 Lab Results 06/03/24 06/03/24 06/03/24 Range/Units 20:40 22:20 23:14 WBC 5.37 (4.8-10.8) K/ul RBC 4.70 (4.70-6.10) M/uL Hgb 14.1 (14.0-18.0) g/dl Hct 41.3 L (42.0-52.0) % MCV 87.9 (80.0-100.0) fL MCH 30.0 (25.0-34.0) pg MCHC 34.1 (32.0-36.0) g/dL RDW Std Deviation 47.4 H (36.4-46.3) fL RDW Coeff of [place] 14.7 H (11.5-14.5) % Plt Count 156 (130-400) K/uL MPV 9.7 (9.4-12.4) fL Immature Gran % (Auto) 0.4 % Neut % (Auto) 51.2 % Lymph % (Auto) 33.5 % [place] % (Auto) 9.1 % Eos % (Auto) 4.7 % Baso % (Auto) 1.1 % Neut # (Auto) 2.75 (1.40-6.50) K/uL Lymph # (Auto) 1.80 (1.20-3.40) K/uL [place] # (Auto) 0.49 (0.11-0.59) K/uL Eos # (Auto) 0.25 (0.00-0.50) K/uL Baso # (Auto) 0.06 (0.00-0.20) K/uL Immature Gran # (Auto) 0.02 (0.01-0.20) K/uL Sodium 138 (136-145) mmol/L Potassium 3.9 (3.5-5.1) mmol/L Chloride 103 (98-107) mmol/L Carbon Dioxide 25 (21-32) mmol/L Anion Gap 10 (3-11) BUN 29 H (6-23) mg/dl Creatinine 1.65 H (0.6-1.4) mg/dl Est Cr Clr Drug Dosing 33.3 ml/min eGFR 41.46 BUN/Creatinine Ratio 17.6 (10-20) Glucose 105 H (70-99(Fasting)) mg/dl Calcium 10.0 (8.6-10.3) mg/dl Total Bilirubin 0.6 (0.2-1.0) mg/dl AST 23 (13-39) U/L ALT 16 (7-52) U/L Alkaline Phosphatase 71 (34-104) U/L Troponin I High Sens 5.9 (0-20) pg/ml Total Protein 7.3 (6.0-8.3) gm/dl Albumin 4.7 (3.4-5.0) gm/dl Globulin 2.6 (2.5-4.0) gm/dl Albumin/Globulin Ratio 1.8 (0.9-2) Lipase 41 (11-82) U/L Urine Color Yellow Urine Appearance Clear (Clear) Urine pH 6.0 (4.5-7.5) Ur Specific [place] 1.010 (1.000-1.030) Urine Protein Negative (Negative) Urine Glucose (UA) Negative (Negative) Urine Ketones Negative (Negative) Urine Blood Negative (Negative) Urine Nitrite Negative (Negative) Urine Bilirubin Negative (Negative) Urine Urobilinogen Negative (Negative) Ur Leukocyte Esterase Negative (Negative) Urine WBC (Auto) 0-5 (0-5) /hpf Urine RBC (Auto) 3-5 H (0-2) /hpf U Hyaline Cast (Auto) 0-2 (0-2) /lpf U Epithel Cells (Auto) 0-2 (0-2) /hpf Urine Bacteria (Auto) None Seen (None Seen) Adenovirus (PCR) Not Detected (NotDetected) B. pertussis DNA (PCR) Not Detected (NotDetected) B.parapertussis DNA PCR Not Detected (NotDetected) C. pneumoniae DNA (PCR) Not Detected (NotDetected) Coronavirus OC43 (PCR) Not Detected (NotDetected) Coronavirus HKU1 (PCR) Not Detected (NotDetected) Coronavirus 229E (PCR) Not Detected (NotDetected) SARS-CoV-2 (PCR) Not Detected (NotDetected) Coronavirus NL63 (PCR) Not Detected (NotDetected) Human Metapneumovir PCR Not Detected (NotDetected) Influenza Type A (PCR) Not Detected (NotDetected) Influenza Type B (PCR) Not Detected (NotDetected) M. pneumoniae (PCR) Not Detected (NotDetected) Parainfluenza 1 (PCR) Not Detected (NotDetected) Parainfluenza 2 (PCR) Not Detected (NotDetected) Parainfluenza 3 (PCR) Not Detected (NotDetected) Parainfluenza 4 (PCR) Not Detected (NotDetected) RSV (PCR) Not Detected (NotDetected) Entero/Rhino (PCR) Not Detected (NotDetected) Administered Medications Discontinued Medications Apixaban (Apixaban 2.5 Mg Tab) 2.5 mg PO ONE ONE Stop: 06/03/24 22:31 Last Admin: 06/03/24 23:05 Dose: 2.5 mg Documented By: THIEN Aspirin (Aspirin Chew 324 Mg) 324 mg PO NOW STA Stop: 06/03/24 22:04 Last Admin: 06/03/24 22:11 Dose: 324 mg Documented By: THIEN Ceftriaxone Sodium (Rocephin) 2,000 mg in 50 mls @ 100 mls/hr IV NOW STA Stop: 06/03/24 22:58 Last Infusion: 06/03/24 23:15 Dose: Infused Documented By: Admin: 06/03/24 22:39 Dose: 100 mls/hr Documented By: THIEN Methylprednisolone (Methylprednisolone 125 Mg/2 Ml Vial) 20 mg IV NOW STA Stop: 06/03/24 22:42 Last Admin: 06/03/24 23:05 Dose: 20 mg Documented By: THIEN Discharge Plan Visit Data Chief Complaint: Chest Pain Stated Complaint: CHEST PAIN ED Provider: Marino Escobar Discharge Problem: Chest pain, CKD (chronic kidney disease) stage 3, GFR 30-59 ml/min Patient Disposition: Being Evaluated by Surgeon Discharge Instructions Interventions: ED Discharge Assessment Last Done: 06/04/24 00:05 Forms Stand Alone Forms: [employer] Prescriptions Prescriptions: No Action Eliquis 2.5 mg tablet 2.5 mg PO BID Qty: 180 3RF amlodipine 10 mg tablet 10 mg PO DAILY Qty: 30 11RF doxycycline monohydrate 100 mg capsule 100 mg PO BID 7 Days Qty: 14 0RF aspirin 81 mg Tablet,Delayed Release (Dr/Ec) 81 mg PO QAM Qty: 30 0RF nebivolol 5 mg tablet 5 mg PO DAILY Qty: 30 5RF Referrals Referrals: Law Fields MD [Primary Care Provider] - Discharge Problem: Chest pain Qualifiers: Chest pain type: unspecified Qualified Code(s): R07.9 - Chest pain, unspecified CKD (chronic kidney disease) stage 3, GFR 30-59 ml/min Qualifiers: Chronic kidney disease stage 3 subtype: stage 3b (GFR 30-44) Qualified Code(s): N18.32 - Chronic kidney disease, stage 3b
[2024-06-03 20:58] LABS: Basophils # (auto) 0.06 K/uL (0.00-0.20); Basophils % (auto) 1.1 %; Eosinophils # (auto) 0.25 K/uL (0.00-0.50); Eosinophils % (auto) 4.7 %; Hematocrit (blood only) 41.3 % (42.0-52.0); Hemoglobin 14.1 g/dl (14.0-18.0); Immature Granulocytes # (auto) 0.02 K/uL (0.01-0.20); Immature Granulocytes % (auto) 0.4 %; Lymphocytes % (auto) 33.5 %; Mean Corpuscular Hgb Conc 34.1 g/dL (32.0-36.0); Mean Corpuscular Volume 87.9 fL (80.0-100.0); Mean Platelet Volume 9.7 fL (9.4-12.4); Monocytes # (auto) 0.49 K/uL (0.11-0.59); Monocytes % (auto) 9.1 %; Neutrophils # (auto) 2.75 K/uL (1.40-6.50); Neutrophils % (auto) 51.2 %; Platelet Count 156 K/uL (130-400); RDW Coefficient of Variation 14.7 % (11.5-14.5); RDW Standard Deviation 47.4 fL (36.4-46.3); White Blood Count 5.37 K/ul (4.8-10.8)
[2024-06-03 21:15] LABS: Albumin Globulin Ratio 1.8 (0.9-2); Albumin Level 4.7 gm/dl (3.4-5.0); BUN Creatinine Ratio 17.6 (10-20); Bilirubin,Total 0.6 mg/dl (0.2-1.0); Creatinine Clr Calc Pharmacy 33.3 ml/min; Globulin 2.6 gm/dl (2.5-4.0); Potassium 3.9 mmol/L (3.5-5.1); Total Protein 7.3 gm/dl (6.0-8.3)
[2024-06-03 21:22] LABS: Troponin I High Sensitivity 5.9 pg/ml (0-20)
[2024-06-03] MEDS ORDERED: NITROGLYCERIN SL 0.4 MG/TAB TAB SL PRN (22:03)
[2024-06-03] MEDS: ASPIRIN CHEW 324 MG PO STA (22:11)
[2024-06-03] MEDS: cefTRIAXone SODIUM 2,000 MG/50 ML BAG IV STA (22:39)
--- NOTE | 2024-06-03 22:55 | History & Physical Report ---
Date of Service June 03, 2024 Assessment & Plan (1) Atypical chest pain: (2) Paroxysmal atrial fibrillation with conversion pauses: (3) Sinus bradycardia: (4) CKD (chronic kidney disease): (5) Tachy-chris syndrome: (6) AF (paroxysmal atrial fibrillation): (7) CAD (coronary artery disease): (8) BPH (benign prostatic hyperplasia): Plan Atypical chest pain/tachybradycardia syndrome/PAF/hypertension/sinus bradycardia with first-degree heart block/CAD- The patient will be admitted to telemetry for serial cardiac enzymes, serialEKGs, cardiac rhythm monitoring Initial troponin 5.9 EKG with sinus bradycardia 55 with first-degree heart block and right bundle br anch block, with no significant change compared to 03/21/2024 Most recent echocardiogram from 03/21/2024 with ejection fraction 60-65%, mild aortic regurgitation and mitral regurgitation, and no significant change compared to 10/21/2022 Continue amlodipine, aspirin, apixaban and nebivolol. Upper respiratory infection- Sputum Gram stain and culture Hold doxycycline PO Place on ceftriaxone 2 g IV daily first dose now Methylprednisolone 20 mg IV now, and reassess response Suspect chest discomfort may be secondary to URI CKD- Creatinine 1.65 on admission, with range 1.68-1.91 Followed serially BPH- Follow urine output Nursing does report the patient is urinating frequently at this time Send urinalysis and urine culture and sensitivity History of Present Illness Chief Complaint: The patient presents to the emergency department with the development of short episodes of left parasternal chest pain at about 11:00 this morning, and intermittently throughout the day. He has had a respiratory infection over the past month, having completed a initial antibiotic treatment a few weeks ago, and now is on his third day of a doxycycline prescription. He continues to have large volumes of thick mucus production. Primary Care Provider: Law Fields MD The patient is an 83-year-old male with a past medical history including paroxysmal atrial fibrillation with conversion pauses, tachybradycardia syndrome, left renal mass, CKD, RENET[place], BPH with LUTS and hypertension. He presents to the emergency department with symptoms as noted above. His most recent hospitalization to [facility] was from 03/21-03/22/2024 for tachybradycardia syndrome with atrial fibrillation and sinus pauses. Allergies Allergy/AdvReac Type Severity Reaction Status Date / Time theophylline AdvReac Intermediate HIGH Verified 06/01/24 15:36 BP,TACHYCARDIA Home Medications Medication Instructions Recorded Confirmed Type apixaban 2.5 mg tablet (Eliquis) 2.5 mg PO BID #180 tabs 10/17/23 06/01/24 Rx aspirin 81 mg tablet,delayed 81 mg PO QAM #30 tabs 03/22/24 06/01/24 Rx release nebivolol 5 mg tablet 5 mg PO DAILY #30 tabs 03/22/24 06/01/24 Rx amlodipine 10 mg tablet 10 mg PO DAILY #30 tabs 04/19/24 06/01/24 Rx doxycycline monohydrate 100 mg 100 mg PO BID 7 days #14 caps 06/01/24 06/01/24 Rx capsule Past Med/Surg History Problem List (Updated 06/03/24 @ 22:50 by Anderw Bagley MD) Atypical chest pain Paroxysmal atrial fibrillation with conversion pauses Sinus bradycardia Hypertensive urgency Renal mass, left CT scan 08/05/2023 Kidney lesion, [place], right [place] - 08/01/2023 CKD (chronic kidney disease) Tachy-chris syndrome Obstructive sleep apnea (Acute) Hearing loss (Acute) Bradycardia (Acute) Abnormal finding on thyroid function test (Acute) AF (paroxysmal atrial fibrillation) (Acute) CAD (coronary artery disease) Head ache (Acute) Health care maintenance BPH (benign prostatic hyperplasia) Medical History CKD (chronic kidney disease) stage 4, GFR 15-29 ml/min RBBB (right bundle branch block with left anterior fascicular block) Dyslipidemia Hypertension Exertional rhabdomyolysis Acute kidney injury superimposed on CKD Nonadherence to medication Acute left eye pain Anticoagulant long-term use Blood in urine Diarrhea Rectal bleeding CAD (coronary artery disease) Chronic kidney disease, stage 3a Presence of stent in left circumflex coronary artery Anxiety disorder due to medical condition Hyperlipidemia Shortness of breath on exertion Sleep disturbance Thrombocytopenia Benign paroxysmal positional vertigo Surgical History Stented coronary artery S/P tonsillectomy S/P knee surgery S/P appendectomy Family History Sister Hypertension Hypothyroidism Mother Leukemia Father Myocardial infarction Uncle Myocardial infarction Denies family history of Ovarian cancer Prostate cancer Breast cancer Lung cancer Colorectal cancer Stroke Social History Smoking Status: Never smoker Second Hand Exposure: No; Do You Dip or Chew Tobacco: No; Hx Alcohol Use: No Hx Substance Use: No Preferred Language: Citizen Of [place] Communication Ability: Effective Visual Impairment: No Limitations Hearing Ability: Normal Speech And Language Specialist Required: No Beliefs That Will Affect Care: None marital status: Single Current Living Situation: Alone Current Living Situation Comment: apartment current occupational status: retired current occupation: [employer] Feels Safe at Home: Yes Childhood Exposure to Second-Hand Smoke: No Dental Care, Regularly: No Physical Activity Frequency: Does not Exercise Seatbelt Use: always Sunscreen Use: No Assistive Devices: Glasses Review of Systems Review of Systems: The patient denies palpitations, lower extremity swelling, sore throat, fevers, chills, sweats, nausea, vomiting, diarrhea , constipation, abdominal pain, pelvic pain, blood in urine or stool, dysuria, urinary frequency or urgency, lightheadedness, dizziness, headache, memory loss, loss of consciousness, rash, abnormal bruising or bleeding, imbalance, focal or generalized weakness, numbness or tingling in arms or legs, generalized arthralgias or myalgias, back or neck pain, or night sweats. The review of systems is otherwise negative other than for that already noted above, and at least 10 systems have been reviewed. Physical Exam Physical Exam: The patient is awake, alert and oriented 3, well developed and well nourished, normocephalic and atraumatic, lying in bed and in no acute distress. HEENT--PERRL, EOMI, mucous membranes and oropharynx dry. Neck--supple.No JVD. No bruits. Thyroid normal, trachea midline, no adenopathy. Heart--normal S1 and S2.No murmurs, rubs or gallops. Lungs--clear bilaterally, no respiratory distress, no accessory muscle use. Abdomen--normal bowel sounds and soft. Nontender. Nondistended, no hernias or masses,no organomegaly. Extremities--no cyanosis or clubbing. No edema. There are good distal pulses b/l. Dermatologic--normal skin turgor, normal color, no abnormal lymph nodes, no rash. Neurologic--cranial nerves II through XII grossly intact. Rheumatologic--normal range of motion. Psychiatric--normal affect. Results & Data Results & Data Vital Signs (Past 12 Hours) Vital Signs Temp Pulse Pulse Resp BP BP Pulse Ox 06/03/24 22:11 53 L 18 152/88 H 94 06/03/24 20:32 57 L 18 95 06/03/24 20:32 57 L 18 157/87 H 95 06/03/24 20:24 63 06/03/24 20:16 36.3 C L 59 L 19 173/84 H 98 O2 Del Method 06/03/24 22:11 Room Air 06/03/24 20:32 Room Air 06/03/24 20:32 Room Air 06/03/24 20:24 06/03/24 20:16 Room Air Laboratory Results Laboratory Results WBC 5.37 K/ul (4.8-10.8) 06/03/24 20:40 RBC 4.70 M/uL (4.70-6.10) 06/03/24 20:40 Hgb 14.1 g/dl (14.0-18.0) 06/03/24 20:40 Hct 41.3 % (42.0-52.0) L 06/03/24 20:40 MCV 87.9 fL (80.0-100.0) 06/03/24 20:40 MCH 30.0 pg (25.0-34.0) 06/03/24 20:40 MCHC 34.1 g/dL (32.0-36.0) 06/03/24 20:40 RDW Std Deviation 47.4 fL (36.4-46.3) H 06/03/24 20:40 RDW Coeff of [place] 14.7 % (11.5-14.5) H 06/03/24 20:40 Plt Count 156 K/uL (130-400) 06/03/24 20:40 MPV 9.7 fL (9.4-12.4) 06/03/24 20:40 Immature Gran % (Auto) 0.4 % 06/03/24 20:40 Neut % (Auto) 51.2 % 06/03/24 20:40 Lymph % (Auto) 33.5 % 06/03/24 20:40 Mclennan % (Auto) 9.1 % 06/03/24 20:40 Eos % (Auto) 4.7 % 06/03/24 20:40 Baso % (Auto) 1.1 % 06/03/24 20:40 Neut # (Auto) 2.75 K/uL (1.40-6.50) 06/03/24 20:40 Lymph # (Auto) 1.80 K/uL (1.20-3.40) 06/03/24 20:40 Mclennan # (Auto) 0.49 K/uL (0.11-0.59) 06/03/24 20:40 Eos # (Auto) 0.25 K/uL (0.00-0.50) 06/03/24 20:40 Baso # (Auto) 0.06 K/uL (0.00-0.20) 06/03/24 20:40 Immature Gran # (Auto) 0.02 K/uL (0.01-0.20) 06/03/24 20:40 Sodium 138 mmol/L (136-145) 06/03/24 20:40 Potassium 3.9 mmol/L (3.5-5.1) 06/03/24 20:40 Chloride 103 mmol/L (98-107) 06/03/24 20:40 Carbon Dioxide 25 mmol/L (21-32) 06/03/24 20:40 Anion Gap 10 (3-11) 06/03/24 20:40 BUN 29 mg/dl (6-23) H 06/03/24 20:40 Creatinine 1.65 mg/dl (0.6-1.4) H 06/03/24 20:40 Est Cr Clr Drug Dosing 33.3 ml/min 06/03/24 20:40 eGFR 41.46 06/03/24 20:40 BUN/Creatinine Ratio 17.6 (10-20) 06/03/24 20:40 Glucose 105 mg/dl (70-99(Fasting)) H 06/03/24 20:40 Calcium 10.0 mg/dl (8.6-10.3) 06/03/24 20:40 Total Bilirubin 0.6 mg/dl (0.2-1.0) 06/03/24 20:40 AST 23 U/L (13-39) 06/03/24 20:40 ALT 16 U/L (7-52) 06/03/24 20:40 Alkaline Phosphatase 71 U/L (34-104) 06/03/24 20:40 Troponin I High Sens 5.9 pg/ml (0-20) 06/03/24 20:40 Total Protein 7.3 gm/dl (6.0-8.3) 06/03/24 20:40 Albumin 4.7 gm/dl (3.4-5.0) 06/03/24 20:40 Globulin 2.6 gm/dl (2.5-4.0) 06/03/24 20:40 Albumin/Globulin Ratio 1.8 (0.9-2) 06/03/24 20:40 Lipase 41 U/L (11-82) 06/03/24 20:40 Code Status & VTE Plan Code Status Full code VTE Prophylaxis Plan VTE Prophylaxis will be ordered: Yes PG Care Time/CCT Total # of Minutes Spent Total Time Spent with Patient: Total time spent is greater than 50% in coordination of care (as documented) at patient's floor/unit and/or counseling patient: Coding Level of Care Code 27617 INT INP/OBS CARE 3/75MIN Diagnoses Atypical chest pain R07.89 Paroxysmal atrial fibrillation with conversion pauses I48.0; I49.5 Sinus bradycardia R00.1 CKD (chronic kidney disease) N18.9 Tachy-chris syndrome I49.5 AF (paroxysmal atrial fibrillation) I48.0 Coronary artery disease involving [place] coronary artery of [place] heart without angina pectoris I25.10 Coronary Disease-Associated Artery/Lesion type: [place] artery [place] vs. transplanted heart: [place] heart Associated angina: without angina BPH (benign prostatic hyperplasia) N40.0 (7) CAD (coronary artery disease) Coronary Disease-Associated Artery/Lesion type: [place] artery [place] vs. transplanted heart: [place] heart Associated angina: without angina Qualified Code(s): I25.10 - Atherosclerotic heart disease of [place] coronary artery without angina pectoris
[2024-06-03] MEDS: methylPREDNISolone 125 MG/2 ML VIAL IV STA (23:05)
[2024-06-03] MEDS: APIXABAN 2.5 MG TAB PO ONE (23:05)
[2024-06-03 23:42] LABS: Appearance Urine Clear (Clear); Bacteria Urine Automated None Seen (None Seen); Bilirubin Urine Negative (Negative); Blood Urine Negative (Negative); Cast Urine Automated 0-2 /lpf (0-2); Color Urine Yellow; Epithelial Cell Urine Auto 0-2 /hpf (0-2); Glucose Urine UA Negative (Negative); Ketones Urine Negative (Negative); Leukocyte Esterase Urine Negative (Negative); Nitrite Urine Negative (Negative); Protein Urine Negative (Negative); Urobilinogen Urine Negative (Negative); WBC Urine Automated 0-5 /hpf (0-5)
[2024-06-04 00:29] LABS: Adenovirus PCR Not Detected (NotDetected); Bordetella parapertussis PCR Not Detected (NotDetected); Bordetella pertussis PCR Not Detected (NotDetected); Chlamydia pneumoniae PCR Not Detected (NotDetected); Coronavirus 229E PCR Not Detected (NotDetected); Coronavirus CoV-2 (COVID19)PCR Not Detected (NotDetected); Coronavirus HKU1 PCR Not Detected (NotDetected); Coronavirus NL63 PCR Not Detected (NotDetected); Coronavirus OC43PCR Not Detected (NotDetected); Human Metapneumovirus PCR Not Detected (NotDetected); Influenza A PCR Not Detected (NotDetected); Influenza B PCR Not Detected (NotDetected); Mycoplasma pneumoniae PCR Not Detected (NotDetected); Parainfluenza Virus 1 PCR Not Detected (NotDetected); Parainfluenza Virus 2 PCR Not Detected (NotDetected); Parainfluenza Virus 3 PCR Not Detected (NotDetected); Parainfluenza Virus 4 PCR Not Detected (NotDetected); Respiratory Syncytial VirusPCR Not Detected (NotDetected); Rhinovirus/Enterovirus PCR Not Detected (NotDetected)
[2024-06-04] MEDS ORDERED: ACETAMINOPHEN 325 MG TAB PO PRN (01:26)
[2024-06-04 06:14] LABS: Basophils # (auto) 0.03 K/uL (0.00-0.20); Basophils % (auto) 0.5 %; Eosinophils # (auto) 0.01 K/uL (0.00-0.50); Eosinophils % (auto) 0.2 %; Hematocrit (blood only) 39.4 % (42.0-52.0); Hemoglobin 13.5 g/dl (14.0-18.0); Immature Granulocytes # (auto) 0.01 K/uL (0.01-0.20); Immature Granulocytes % (auto) 0.2 %; Lymphocytes # (auto) 0.62 K/uL (1.20-3.40); Lymphocytes % (auto) 10.9 %; Mean Corpuscular Hemoglobin 30.1 pg (25.0-34.0); Mean Corpuscular Hgb Conc 34.3 g/dL (32.0-36.0); Mean Corpuscular Volume 87.9 fL (80.0-100.0); Mean Platelet Volume 10.1 fL (9.4-12.4); Monocytes % (auto) 1.8 %; Neutrophils # (auto) 4.94 K/uL (1.40-6.50); Neutrophils % (auto) 86.4 %; Platelet Count 154 K/uL (130-400); RDW Coefficient of Variation 14.6 % (11.5-14.5); RDW Standard Deviation 46.9 fL (36.4-46.3); Red Blood Count 4.48 M/uL (4.70-6.10); White Blood Count 5.71 K/ul (4.8-10.8)
[2024-06-04 06:29] LABS: BUN Creatinine Ratio 19.8 (10-20); Calcium 9.5 mg/dl (8.6-10.3); Creatinine Clr Calc Pharmacy 32.9 ml/min; Potassium 4.3 mmol/L (3.5-5.1)
[2024-06-04 06:36] LABS: Troponin I High Sensitivity 4.7 pg/ml (0-20)
[2024-06-04 06:38] LABS: Albumin Level 4.2 gm/dl (3.4-5.0); Magnesium 1.9 mg/dl (1.7-2.4); Phosphorus 1.2 mg/dl (2.5-4.9)
[2024-06-04] MEDS ORDERED: SODIUM PHOSPHATE 3 MMOL/1 ML INFUSION IV STA (06:49)
--- NOTE | 2024-06-04 06:59 | XRay Report ---
XR chest 1V portable CLINICAL HISTORY: Chest pain, nonspecific COMPARISON STUDY: Chest radiograph June 01, 2024. FINDINGS: Lung volumes are normal. Lungs are clear. There is no pneumothorax or pleural effusion. Car diac size is stable. Opacity along the left heart border favors epicardial fat pad. There is no evide nce for pulmonary edema. IMPRESSION: 1. No acute cardiopulmonary findings. 2. Opacity along the left heart border which favors epicardial fat pad. ACT 112: Negative or not required by law. Electronically signed by: Efren Lazo M.D. 06/04/2024 6:57 AM
[2024-06-04] MEDS: APIXABAN 2.5 MG TAB PO SCH (07:16)
[2024-06-04] MEDS: DOXYCYCLINE HYCLATE 100 MG CAP PO SCH (07:16)
[2024-06-04] MEDS: METOPROLOL TARTRATE 25 MG TAB PO SCH (07:16)
[2024-06-04] MEDS: amLODIPine BESYLATE 5 MG TAB PO SCH (07:16)
[2024-06-04] MEDS: SODIUM PHOSPHATE 9 MMOL in SODIUM CHLORIDE 0.9% 250 ML IV ONE ×2 (07:23→10:18)
[2024-06-04 07:50] VITALS: RESP 16
--- NOTE | 2024-06-04 08:30 | Electrocardiogram Report ---
Test Reason : Blood Pressure : */* mmHG Vent. Rate : 55 BPM Atrial Rate : 55 BPM P-R Int : 260 ms QRS Dur : 128 ms QT Int : 460 ms P-R-T Axes : 39 -26 22 degrees QTcB Int : 440 ms Sinus bradycardia with 1st degree A-V block Right bundle branch block Abnormal ECG When compared with ECG of 22-Mar-2024 06:40, QT has shortened Confirmed by aP Key ([id number]) on 06/04/2024 8:29:53 AM Referred By: REFERRED SELF Confirmed By: Pa Key
--- NOTE | 2024-06-04 08:34 | Electrocardiogram Report ---
Test Reason : Blood Pressure : */* mmHG Vent. Rate : 61 BPM Atrial Rate : 61 BPM P-R Int : 250 ms QRS Dur : 124 ms QT Int : 456 ms P-R-T Axes : 24 -44 14 degrees QTcB Int : 459 ms Sinus rhythm with 1st degree A-V block Left axis deviation Right bundle branch block Abnormal ECG When compared with ECG of 03-Jun-2024 20:32, No significant change was found Confirmed by Pa Key ([id number]) on 06/04/2024 8:33:41 AM Referred By: REFERRED SELF Confirmed By: Pa Key
--- NOTE | 2024-06-04 11:00 | Pulmonary Consultation ---
Date of Consultation June 04, 2024 Assessment & Plan (1) Upper airway cough syndrome: Plan Impression: 83-year-old male without prior pulmonary history with subacute cough. Leading etiologies would be either upper airway cough syndrome or postviral cough. Recommendations: 1. Cough: This is typically an outpatient evaluation. Would recommend a trial of chlorpheniramine 4 mg twice a day, Sudafed LA 120 mg twice a day, Flonase nasal spray 1 spray each nostril twice a day, and saline sinus irrigation to be performed daily. These are all outpatient thps-eit-tqxyrcq medications and are not typically available on the inpatient side. Would recommend starting these once the patient is dismissed from the hospital. 2. If the cough should persist, additional evaluation including spirometry and exhaled nitric oxide might be appropriate. 3. There is no indication for antibiotics or systemic steroids at this point time and these will be discontinued. 4. Again, the workup of this subacute cough is appropriate for the outpatient setting. Pulmonary will sign off at this point in time. Management of the patient's other medical issues and ultimate disposition is deferred to the admitting service. I would be happy to see him back in the pulmonary clinic should his cough fail to improve with the above interventions. History of Present Illness Attending Physician: Ezra Bernard History of Present Illness Asked by hospitalist to assist in evaluation management this patient with subacute cough. History is obtained from discussion with the patient as well as review the electronic medical record. The patient is an 83-year-old male without significant pulmonary history. He is a lifelong non-smoker. He states that about 4 to 5 weeks ago he developed cough with some sore throat and nasal/sinus congestion. He eventually was seen by his primary care provider. He was placed on a course of doxycycline which did little to ameliorate his cough. He followed up and again was treated with another course of doxycycline as well as Mucinex. Neither 1 of these had a significant impact on his cough. Yesterday he developed some pins and needle sensation in his anterior chest which prompted him to present to the emergency room. He was admitted to the hospitalist service with a diagnosis of atypical chest pain. They recommended serial enzymes. Due to his cough, he was placed on methylprednisolone as well as Rocephin. His chest x-ray demonstrated no acute abnormality. Pulmonary was consulted for additional evaluation managemen t. The patient is a lifelong non-smoker. 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 No significant occupational or environmental exposures. No pets at home. No prior history of asthma. He denies any shortness of breath or wheezing. He does state that the cough occasionally will produce some yellowish phlegm. He is never had hemoptysis. No fevers chills or night sweats. No lower extremity edema syncope or presyncope. He does not use MAR[place]ET[place] inhibitors. He does endorse significant sinus congestion and fullness. He denies signs or symptoms of heartburn or reflux. Allergies Allergy/AdvReac Type Severity Reaction Status Date / Time theophylline AdvReac Intermediate HIGH Verified 06/01/24 15:36 BP,TACHYCARDIA Home Medications Medication Instructions Recorded Confirmed Type apixaban 2.5 mg tablet (Eliquis) 2.5 mg PO BID #180 tabs 10/17/23 06/01/24 Rx aspirin 81 mg tablet,delayed 81 mg PO QAM #30 tabs 03/22/24 06/01/24 Rx release nebivolol 5 mg tablet 5 mg PO DAILY #30 tabs 03/22/24 06/01/24 Rx amlodipine 10 mg tablet 10 mg PO DAILY #30 tabs 04/19/24 06/01/24 Rx doxycycline monohydrate 100 mg 100 mg PO BID 7 days #14 caps 06/01/24 06/01/24 Rx capsule Patient History Medical History CKD (chronic kidney disease) stage 4, GFR 15-29 ml/min RBBB (right bundle branch block with left anterior fascicular block) Dyslipidemia Hypertension Exertional rhabdomyolysis Acute kidney injury superimposed on CKD Nonadherence to medication Acute left eye pain Anticoagulant long-term use Blood in urine Diarrhea Rectal bleeding CAD (coronary artery disease) Chronic kidney disease, stage 3a Presence of stent in left circumflex coronary artery Anxiety disorder due to medical condition Hyperlipidemia Shortness of breath on exertion Sleep disturbance Thrombocytopenia Benign paroxysmal positional vertigo Surgical History Stented coronary artery S/P tonsillectomy S/P knee surgery right - torn meniscus S/P appendectomy Family History Sister Hypertension Hypothyroidism Mother Leukemia Father Myocardial infarction Uncle Myocardial infarction Denies family history of Ovarian cancer Prostate cancer Breast cancer Lung cancer Colorectal cancer Stroke Social History Smoking Status: Never smoker Second Hand Exposure: No; Do You Dip or Chew Tobacco: No; Hx Alcohol Use: No Hx Substance Use: No Preferred Language: [place] Communication Ability: Effective Visual Impairment: No Limitations Hearing Ability: Normal Certified Health Education Specialist Required: No Beliefs That Will Affect Care: None marital status: Single Current Living Situation: Alone current occupational status: retired 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 No additions or deletions Physical Exam Constitutional: WD/WN, vitals as above Neck: trachea midline, no thyromegaly Respiratory: normal respiratory effort, lungs clear to auscultation Cardiovascular: RRR, no murmur, no edema Gastrointestinal (Abdomen): normal bowel sounds, soft, nontender, no hepatosplenomegaly Musculoskeletal: Extremities: extremities normal to inspection Skin: no rashes, warm and dry Neurologic: Nonfocal exam Lymphatic: no cervical lymphadenopathy Results & Data Results & Data Vital Signs (Past 12 Hours) Vital Signs Temp Pulse Pulse Resp BP BP Pulse Ox 06/04/24 08:00 06/04/24 07:50 36.6 C 57 L 16 151/78 H 96 06/04/24 05:01 36.6 C 56 L 18 150/79 H 95 06/04/24 01:43 52 L 06/04/24 01:30 06/04/24 01:19 36.5 C 58 L 18 149/84 H 97 06/04/24 01:05 51 L 18 134/78 93 06/04/24 00:57 51 L 18 134/78 93 06/04/24 00:20 54 L 06/04/24 00:05 95 H 18 171/107 H 98 06/03/24 23:06 52 L 18 164/87 H 93 O2 Del Method O2 Flow Rate 06/04/24 08:00 Room Air 06/04/24 07:50 Room Air 06/04/24 05:01 Room Air 06/04/24 01:43 06/04/24 01:30 Room Air 06/04/24 01:19 Room Air 06/04/24 01:05 Room Air 06/04/24 00:57 Room Air 06/04/24 00:20 06/04/24 00:05 Nasal Cannula 2 06/03/24 23:06 Room Air Critical Care Results & Data Vital Signs (Past 12 Hours) Vital Signs Temp Pulse Pulse Resp BP BP Pulse Ox 06/04/24 08:00 06/04/24 07:50 36.6 C 57 L 16 151/78 H 96 06/04/24 05:01 36.6 C 56 L 18 150/79 H 95 06/04/24 01:43 52 L 06/04/24 01:30 06/04/24 01:19 36.5 C 58 L 18 149/84 H 97 06/04/24 01:05 51 L 18 134/78 93 06/04/24 00:57 51 L 18 134/78 93 06/04/24 00:20 54 L 06/04/24 00:05 95 H 18 171/107 H 98 06/03/24 23:06 52 L 18 164/87 H 93 O2 Del Method O2 Flow Rate 06/04/24 08:00 Room Air 06/04/24 07:50 Room Air 06/04/24 05:01 Room Air 06/04/24 01:43 06/04/24 01:30 Room Air 06/04/24 01:19 Room Air 06/04/24 01:05 Room Air 06/04/24 00:57 Room Air 06/04/24 00:20 06/04/24 00:05 Nasal Cannula 2 06/03/24 23:06 Room Air Lab & Micro Results (Past 24 Hours) RBC 4.48 M/uL (4.70-6.10) L 06/04/24 WBC 5.71 K/ul (4.8-10.8) 06/04/24 Hgb 13.5 g/dl (14.0-18.0) L 06/04/24 Hct 39.4 % (42.0-52.0) L 06/04/24 MCV 87.9 fL (80.0-100.0) 06/04/24 MCH 30.1 pg (25.0-34.0) 06/04/24 MCHC 34.3 g/dL (32.0-36.0) 06/04/24 RDW Standard Deviation 46.9 fL (36.4-46.3) H 06/04/24 RDW Coefficient of Variation 14.6 % (11.5-14.5) H 06/04/24 Plt Count 154 K/uL (130-400) 06/04/24 MPV 10.1 fL (9.4-12.4) 06/04/24 Neutrophils (%) (Auto) 86.4 % 06/04/24 Lymphocytes (%) (Auto) 10.9 % 06/04/24 Monocytes # (Auto) 0.10 K/uL (0.11-0.59) L 06/04/24 Eosinophils # (Auto) 0.01 K/uL (0.00-0.50) 06/04/24 Immature Granulocyte % (Auto) 0.2 % 06/04/24 Neutrophils # (Auto) 4.94 K/uL (1.40-6.50) 06/04/24 Lymphocytes # (Auto) 0.62 K/uL (1.20-3.40) L 06/04/24 Monocytes # (Auto) 0.10 K/uL (0.11-0.59) L 06/04/24 Eosinophils # (Auto) 0.01 K/uL (0.00-0.50) 06/04/24 Basophils # (Auto) 0.03 K/uL (0.00-0.20) 06/04/24 Immature Granulocyte # (Auto) 0.01 K/uL (0.01-0.20) 4 Na 139 mmol/L (136-145) 06/04/24 K 4.3 mmol/L (3.5-5.1) 06/04/24 Cl 106 mmol/L (98-107) 06/04/24 CO2 25 mmol/L (21-32) 06/04/24 Anion Gap 8 (3-11) 06/04/24 BUN 32 mg/dl (6-23) H 06/04/24 Creatinine 1.62 mg/dl (0.6-1.4) H 06/04/24 BUN/Creatinine Ratio 19.8 (10-20) 06/04/24 Glu 152 mg/dl (70-99(Fasting)) H 06/04/24 Ca 9.5 mg/dl (8.6-10.3) 06/04/24 Phosphorus Level 1.2 mg/dl (2.5-4.9) L* 06/04/24 Total Bilirubin 0.6 mg/dl (0.2-1.0) 06/03/24 AST 23 U/L (13-39) 06/03/24 ALT 16 U/L (7-52) 06/03/24 Alkaline Phosphatase 71 U/L (34-104) 06/03/24 TP 7.3 gm/dl (6.0-8.3) 06/03/24 Albumin 4.2 gm/dl (3.4-5.0) 06/04/24 Globulin 2.6 gm/dl (2.5-4.0) 06/03/24 Albumin/Globulin Ratio 1.8 (0.9-2) 06/03/24 Mg 1.9 mg/dl (1.7-2.4) 06/04/24 05:34 Calcium Level 9.5 mg/dl (8.6-10.3) 06/04/24 05:34 Diagnostic Findings (Past 24 Hours) Chest X-Ray 06/03/24 20:23 XR chest 1V portable CLINICAL HISTORY: Chest pain, nonspecific COMPARISON STUDY: Chest radiograph June 01, 2024. FINDINGS: Lung volumes are normal. Lungs are clear. There is no pneumothorax or pleural effusion. Cardiac size is stable. Opacity along the left heart border favors epicardial fat pad. There is no evidence for pulmonary edema. IMPRESSION: 1. No acute cardiopulmonary findings. 2. Opacity along the left heart border which favors epicardial fat pad. ACT 112: Negative or not required by law. Electronically signed by: Efren Lazo M.D. 06/04/2024 6:57 AM I & O Totals 24 Hours 06/03/24 06/04/24 06/05/24 06:59 06:59 06:59 Intake Total 50 / 50 253 / 253 Balance 50 / 50 253 / 253 Cumulative 06/03/24 20:15 thru 06/04/24 10:18 Intake Total 303 Balance 303 RT Ventilator Mngmt (Last Documented) Ventilator Ordered Settings Respiratory Rate 16 06/04/24 07:50 Ventilator - PT Measurements Respiratory Rate 16 PG Care Time/CCT Total # of Minutes Spent Total Time Spent with Patient: Total time spent is greater than 50% in coordination of care (as documented) at patient's floor/unit and/or counseling patient: Coding Level of Care Code 28936 INT INP/OBS CARE 2/55MIN Diagnoses Upper airway cough syndrome R05.8
[2024-06-04] MEDS: ASPIRIN 81 MG ECTAB PO SCH (11:14)
[2024-06-04] MEDS: diphenhydrAMINE Capsule 25 MG CAP PO SCH (11:15)
[2024-06-04] MEDS: FLUTICASONE PROPIONATE NA SPR 16 GM BTL SCH (11:18)
[2024-06-04 11:55] VITALS: BP 145/67; PULSE 64; TEMP 98.2; O2SAT 95
[2024-06-04] MEDS ORDERED: SODIUM PHOSPHATE 3 MMOL/1 ML INFUSION IV ONE (12:00)
[2024-06-04] MEDS: PSEUDOEPHEDRINE HCL 30 MG TAB PO SCH (13:16)
--- NOTE | 2024-06-05 09:32 | Discharge Summary ---
Discharge Summary Date of Service June 04, 2024 Principal Dx & Hospital Course #1 = Principal Diagnosis (1) Atypical chest pain: (2) Paroxysmal atrial fibrillation with conversion pauses: (3) Sinus bradycardia: (4) CKD (chronic kidney disease): (5) Tachy-chris syndrome: (6) AF (paroxysmal atrial fibrillation): (7) CAD (coronary artery disease): (8) BPH (benign prostatic hyperplasia): Plan Atypical chest pain/tachybradycardia syndrome/PAF/hypertension/sinus bradycardia with first-degree heart block/CAD- The patient will be admitted to telemetry for serial cardiac enzymes, serialEKGs, cardiac rhythm monitoring Initial troponin 5.9 EKG with sinus bradycardia 55 with first-degree heart block and right bundle branch block, with no significant change compared to 03/21/2024 Most recent echocardiogram from 03/21/2024 with ejection fraction 60-65%, mild aortic regurgitation and mitral regurgitation, and no significant change compared to 10/21/2022 Continue amlodipine, aspirin, apixaban and nebivolol. Upper respiratory infection- Sputum Gram stain and culture Cough: Appreicat einput from pulmonary This is typically an outpatient evaluation. Would recommend a trial of chlorpheniramine 4 mg twice a day, Sudafed LA 120 mg twice a day, Flonase nasal spray 1 spray each nostril twice a day, and saline sinus irrigation to be performed daily. These are all outpatient xsqh-aao-swjxvuk medications and are not typically available on the inpatient side. Would recommend starting these once the patient is dismissed from the hospital. CKD- Creatinine 1.65 on admission, with range 1.68-1.91 BPH- stable Admission HPI Per Admitting Provider The patient is an 83-year-old male with a past medical history including paroxysmal atrial fibrillation with conversion pauses, tachybradycardia syndrome, left renal mass, CKD, [place], BPH with LUTS and hypertension. He presents to the emergency department with symptoms as noted above. His most recent hospitalization to [facility] was from 03/21-03/22/2024 for tachybradycardia syndrome with atrial fibrillation and sinus pauses. Discharge Exam pt has regular rhythm lungs are clear Discharge Plan Discharge Items Patient Disposition: Home - Self-Care Reason For Visit: ATYPICAL CHEST PAIN, URI Discharge Diagnosis: URI Activity: Resume your previous activity Non-emergency contact: Primary Care Provider Call non-emergency contact if: you have any medication questions Follow-up/Referrals: Law Fields MD [Primary Care Provider] - 06/12/24 1:30 pm (APPT. WITH Eunice CHRISTIANSON PA-C) Diet: Regular Addtl Attending Provider Instructions: Good afternoon Mr. Devries, You were seen for your cough and evaluated by pulmonary. The pulmonary doctor stated that you can continue to be treated in the outpatient setting. Would recommend a trial of: -Chlorpheniramine 4 mg twice a day -Sudafed LA 120 mg twice a day -Flonase nasal spray 1 spray each nostril twice a day -Saline sinus irrigation to be performed daily. These are all outpatient [id number]-eltglpg medications. Recommend followup with PCP in 1-2 weeks. It was a pleasure. Pending Studies at Discharge: No Stand-Alone Forms: [facility], Smoking Cessation Medications and DC Order Prescriptions: Continued Eliquis 2.5 mg tablet 2.5 mg PO BID Qty: 180 3RF amlodipine 10 mg tablet 10 mg PO DAILY Qty: 30 11RF aspirin 81 mg Tablet,Delayed Release (Dr/Ec) 81 mg PO QAM Qty: 30 0RF nebivolol 5 mg tablet 5 mg PO DAILY Qty: 30 5RF Discontinued doxycycline monohydrate 100 mg capsule 100 mg PO BID 7 Days Qty: 14 0RF No Action chlorpheniramine maleate 4 mg tablet 4 mg PO BID pseudoephedrine HCl [Sudafed 12 Hour] 120 mg tablet extended release 120 mg PO Q12H saline sinus irriation irrigation DAILY Rx Instructions: nasal irrigation daily fluticasone propionate [Flonase Allergy Relief] 50 mcg/actuation spray,suspension 1 spray intranasal BID Rx Instructions: administer into each nostril Discharge Orders: Discharge Order (Routine); Ordered 06/04/24 Ordered By: Ezra Choe/Other Patient Handouts: Fluticasone Metered Dose Nasal [place], Pseudoephedrine Oral Tablet, Chlorpheniramine Oral Tablet Admission Data Admit Date/Time: 06/03/24 22:45 Attending Provider: Ezra Bernard Admit Provider: Andrew Bagley Primary Care Provider: Law Fields V. Other Providers: Andrew Bagley; Justin Perry; Papito Marie; Prabhu Mason; Fariba Edouard; Nedra Casper; Ana Chavez; Tiago Ferrer; Oswald Kumar; Zulema Orourke Other Interventions: Discharge Summary Assessment (RN) Last Done: 06/04/24 15:36 Hospital Stay Data Consultations 06/03/24 21:57 ED Decision to Admit Stat 06/04/24 08:06 Consult Pulmonology Routine Pending Results Patient Have Any Pending Studies at Discharge: No Discharge Instructions Given to Patient (Per Discharging Provider) Good afternoon Mr. Devries, You were seen for your cough and evaluated by pulmonary. The pulmonary doctor stated that you can continue to be treated in the outpatient setting. Would recommend a trial of: -Chlorpheniramine 4 mg twice a day -Sudafed [place] 120 mg twice a day -Flonase nasal spray 1 spray each nostril twice a day -Saline sinus irrigation to be performed daily. These are all outpatient hfbr-ocq-rnthxlo medications. Recommend followup with PCP in 1-2 weeks. It was a pleasure. Total Time Total Time Spent Total Time Spent (In Minutes): 32 Coding Level of Care Code 23117 INP/OBS DISCH >30 MIN Diagnoses Atypical chest pain R07.89 Paroxysmal atrial fibrillation with conversion pauses I48.0; I49.5 Sinus bradycardia R00.1 CKD (chronic kidney disease) N18.9 Tachy-chris syndrome I49.5 AF (paroxysmal atrial fibrillation) I48.0 Coronary artery disease involving [place] coronary artery of [place] heart without angina pectoris I25.10 Associated angina: without angina Coronary Disease-Associated Artery/Lesion type: [place] artery [place] vs. transplanted heart: [place] heart BPH (benign prostatic hyperplasia) N40.0
== END 2024-06-04 16:08 | disposition home or self-care (01) ==
LOC: ED 20:15 → 2N 20:15 → SUATTDRO 22:45 → 2N 06-04 01:05